=== PATIENT | female | born 1950 | race Hispanic/Latino ===

== ENCOUNTER 2017-02-02 12:52 | Inpatient (IN) | payer MEDICAID, SELFPAY ==
[2017-02-02 13:28] LABS: #Eosinphils 0.1 thou/uL (0.0-0.7); #Lymphocytes 1.8 thou/uL (1.20-3.40); #Monocytes 0.7 thou/uL (0.11-0.59); #Neutrophils 6.5 thou/uL (1.40-6.50); %Basophils 0.2 % (0.0-1.0); %Lymphocytes 19.8 % (21.0-51.0); %Monocytes 7.5 % (0.0-10.0); Hematocrit 29.4 % (36.0-47.0); Mean Platelet Volume 7.9 fL (7.4-10.4); Red Blood Cell (RBC) Count 3.29 mill/uL (4.20-5.40); White Blood Cell (WBC) Count 9.1 thou/uL (4.8-10.8)
[2017-02-02] MEDS ORDERED: Meropenem 1 GM VIAL ONE (13:33)
[2017-02-02] MEDS ORDERED: Sodium Chloride 0.9% 100 ML ONE (13:34)
[2017-02-02 13:56] LABS: ALT (SGPT) 9 U/L (8-55); AST (SGOT) 21 U/L (5-34); Alkaline Phosphatase 98 U/L (40-150); Anion Gap 14 mmol/L (10-20); BUN (Urea Nitrogen) 22 mg/dL (9.8-20.1); Bilirubin, Total 0.2 mg/dL (0.2-1.2); Calc. Creatinine Clearance 0 mL/min (70-130); Calcium 9.2 mg/dL (7.8-10.44); Carbon Dioxide 27 mmol/L (23-31); Chloride 99 mmol/L (98-107); Estimated GFR-MDRD 42; Globulin 5.1 g/dL (2.4-3.5); Protein, Total 8.6 g/dL (6.0-8.3)
[2017-02-02 13:59] LABS: Lactic Acid - Sepsis 1.7 mmol/L (0.5-2.2)
--- NOTE | 2017-02-02 14:18 | RAD ---
LEFT FOOT 3 VIEWS: Date: 02/02/17 HISTORY: Diabetic foot ulcer. FINDINGS: There is destructive lytic bony change involving the first metatarsal head and metatarsal neck regio n. There appears to be adjacent soft tissue ulcer. Changes are highly suspicious for osteomyelitis. IMPRESSION: Osteomyelitis of the first metatarsal. POS: ARCELIA
[2017-02-02] MEDS ORDERED: Acetaminophen 325 MG TAB PO PRN (15:19)
[2017-02-02] MEDS ORDERED: Dextrose 5% in Water 1,000 ML IV PRN (15:19)
[2017-02-02] MEDS ORDERED: Eucerin (Mineral Oil/Petrolatum,White) 30 gm Jar TOP PRN (15:19)
[2017-02-02] MEDS ORDERED: Loperamide HCl 2 MG CAP PO PRN (15:19)
[2017-02-02] MEDS ORDERED: Senokot 8.6 MG TAB PO PRN (15:19)
[2017-02-02] MEDS ORDERED: Zolpidem Tartrate 5 MG TAB PO PRN (15:19)
[2017-02-02] MEDS ORDERED: Artificial Tear Sol 15 ML BOT EA EYE PRN (15:19)
[2017-02-02] MEDS ORDERED: Dextrose 50% Abboject 50 ML SYRINGE SLOW IVP PRN (15:19)
[2017-02-02] MEDS ORDERED: Milk Of Magnesia 30 ML UDCUP PO PRN (15:19)
[2017-02-02] MEDS ORDERED: Sodium Chloride 0.65% Nasal 44 ML BOT EA NARE PRN (15:19)
[2017-02-02] MEDS ORDERED: Diabetic Tussin 200 MG/10 ML UDCUP PO PRN (15:19)
[2017-02-02] MEDS ORDERED: Loratadine 10 MG TAB PO PRN (15:19)
[2017-02-02] MEDS ORDERED: Ondansetron HCl/PF 4 MG/2 ML Vial IVP PRN (15:19)
[2017-02-02] MEDS ORDERED: HumaLOG 300 UNITS/3 ML VIAL SC PRN (15:19)
[2017-02-02] MEDS ORDERED: Ondansetron ODT 4 MG TAB PO PRN (15:19)
[2017-02-02] MEDS: Sodium Chloride 0.9% 1,000 ML IV SCH ×2 (15:20→20:21)
[2017-02-02 15:21] VITALS: BMI 23.9
--- NOTE | 2017-02-02 15:35 | HP ---
PRIMARY CARE PHYSICIAN: Latosha Andersen. REASON FOR ADMISSION: Hypotension, left foot diabetic infection. HISTORY OF PRESENT ILLNESS: A 66-year-old female with a history of diabetes, who was recen tly admitted in our hospital in 12/2016. At that time, Dr. Sales did an I\T\D for diabetic foot i nfection on the left side and subsequently patient was discharged home with outpatient wound care. Per family member, patient was relatively doing well. She had a couple of times followup visit at [facility]. For the last 1 week, the patient also noticed increasing erythema over left foot and swelling and pain. Today, patient had regular followup visit for diabetic foot at the primary care physician's office. The patient was feeling very dizzy, weak. Patient was hypotensive with bl ood pressure 73/51. She was afebrile. The patient also saw primary care physician yesterday at [facility] t time because of worsening of her left foot infection. Patient was given 2 gram of Rocephin IM and patient was given clindamycin 300 mg 3 capsules 3 times a day. The patient was taking that medicat ion, but she was not feeling any change in her left diabetic foot infection and that is why today sh e made regular followup visit with primary care physician. Over there, the patient's blood pressure was very low and that is why she was advised to go to the emergency room for evaluation. Patient denies any UTI symptoms. She denies any constipation, diarrhea. She denies taking blood pr essure medicine today. She denies any fever or chills. Patient does have pain in her left foot, wh ich is 3/10 in intensity, which is getting worse with walking. When she arrived to our emergency room, patient was no longer hypotensive and she was afebrile. The patient was found with left foot cellulitis. She had x-ray of the left foot, which showed osteomye litis of the first metatarsal. The patient was given IV antibiotic therapy with vancomycin and belinda penem and IV fluid. Subsequently, we decided to admit to the medical floor for IV antibiotic therap y and further care. PAST MEDICAL HISTORY: Diabetes type 2 diagnosed in 2004, hypertension, normocytic normochromic anem ia, dyslipidemia, history of diabetic right foot ulcer in 2011 required amputation of right second t oe. PAST SURGICAL HISTORY: Bilateral tubal ligation, right second toe amputation due to osteomyelitis i n 2012. Patient also required incision and debridement for left diabetic foot infection. PAST PSYCHIATRIC HISTORY: Reviewed and negative. FAMILY HISTORY: No strong family history of premature coronary artery disease, stroke or cancer. ALLERGIES: No known drug allergies. CURRENT HOME MEDICATIONS: Lovastatin 20 mg p.o. at bedtime, aspirin 81 mg p.o. daily, ferrous sulfa te 325 mg p.o. daily, NovoLog 70/30 25 units subQ twice daily, Coreg 3.125 mg p.o. b.i.d., clindamyc in 300 mg 3 times daily. REVIEW OF SYSTEMS: The following complete review of systems was negative, unless otherwise mentione d in the HPI or below: CONSTITUTIONAL: Weight loss or gain, ability to conduct usual activities. SKIN: Rash, itching. Eyes: Double vision, pain. ENT/MOUTH: Nose bleeding, neck stiffness, pain, tenderness. CARDIOVASCULAR: Palpitations, dyspnea on exertion, orthopnea. RESPIRATORY: Shortness of breath, wheezing, cough, hemoptysis, fever or night sweats. GASTROINTESTINAL: Poor appetite, abdominal pain, heartburn, nausea, vomiting, constipation, or diar tanisha. GENITOURINARY: Urgency, frequency, dysuria, nocturia. MUSCULOSKELETAL: Pain, swelling. NEUROLOGIC/PSYCHIATRIC: Anxiety, depression. ALLERGY/IMMUNOLOGIC: Skin rash, bleeding tendency. Please see my HPI for pertinent positives and negatives. All other review of systems reviewed and n egative except as mentioned in the HPI. SOCIAL HISTORY: Patient lives at home with the family. No history of tobacco, alcohol or illicit d rug abuse. EMERGENCY ROOM COURSE: Patient is given vancomycin, meropenem and IV fluid. PHYSICAL EXAMINATION: VITAL SIGNS: On arrival, blood pressure 114/73, pulse 100, respiratory rate 16, temperature 98.7, s aturation 100% on room air. Weight 66.2 kilograms. GENERAL: Patient is currently alert, awake, no obvious acute distress. HEENT: Normocephalic, atraumatic. Eyes: Pupils round, reactive to light. Extraocular muscles int act. ENT: Oropharynx within normal limits. Moist mucous membranes. No oral lesions. No pharyngeal natalia thema, no exudate. NECK: Supple. Range of motion is normal. No meningeal signs of irritation. LUNGS: Clear to auscultation without any rhonchi or rales. CARDIAC: S1, S2 regular without any murmur. ABDOMEN: Soft, bowel sounds present, nontender, nondistended. No organomegaly, no mass, no suprapu bic tenderness. BACK: Unremarkable, no CVA tenderness. EXTREMITIES: Upper extremity: Passive movement of all joints are normal. Lower extremity: Left f oot is swollen, erythematous with ulcer on the plantar aspect of the left foot. Patient has more sw elling over the medial aspect of the left foot. No calf tenderness. NEUROLOGIC: Nonfocal examination. The patient moves all 4 limbs. Plantar bilateral flexor. SKIN: No skin rash. HEMATOLOGIC: No lymphadenopathy. PSYCHIATRIC: Normal affect. SIGNIFICANT LABS: 1. CBC: WBC 9.1, hemoglobin 9.7, platelets 336. BMP: Sodium 136, potassium 4.2, chloride 99, car bon dioxide 27, BUN 22, creatinine 1.27, glucose 110, calcium 9.2, lactic acid 1.7. LFT: AST 21, ALT 9, alkaline phosphatase 98, albumin 3.5. CRP 4.46. 2. Foot x-ray showing osteomyelitis of the first metatarsal. ASSESSMENT AND PLAN/IMPRESSION: 1. Left first metatarsal osteomyelitis. This patient has swelling and erythema of the first toe of the left foot. Based on radiological picture, patient has underlying osteomyelitis. At this point , we will consult Dr. Nolasco. We will continue with broad spectrum antibiotic therapy with meropenem 1 gram IV q.8 hourly and vancomycin as per pharmacy adjusted dose. We will control her pain with N orco. This patient may need surgery and in that case, we will consult General Surgery for amputatio n. 2. Diabetes type 2. We will continue with insulin as per sliding scale protocol. Diabetic diet wi ll be given. We will continue with insulin 70/30, 10 units subQ a.c. and titrate insulin dose based on requirement. 3. Dyslipidemia. We will continue lovastatin 20 mg IV while in hospital. 4. Normocytic normochromic anemia. We will continue ferrous sulfate 325 mg p.o. daily. 5. Hypotension. We will hold on antihypertensive medication. The patient will be given IV fluid w hile in hospital. We will watch for any sepsis. 6. Deep venous thrombosis prophylaxis. Lovenox 40 mg subQ daily. 7. Gastrointestinal prophylaxis, Pepcid 20 mg p.o. b.i.d. 8. Code status: The patient is FULL CODE. Patient's granddaughter is surrogate decision maker. Disposition plan based on clinical course. We are expecting patient's stay in the hospital more beth n 2 midnights. Plan of care discussed with the patient and family member at bedside in the emergenc y room.
[2017-02-02] MEDS: Insulin NPH/Reg Insulin Hm 300 UNITS/3 ML VIAL SC SCH (18:03)
--- NOTE | 2017-02-02 19:42 | CON ---
DATE OF CONSULTATION: 02/02/2017 REASON FOR CONSULTATION: Left lower extremity arterial vascular evaluation. PERTINENT HISTORY: Patient is a 66-year-old female who underwent incision and drainage of a left great toe/metatarsal abscess by Dr. Jennifer Sales on 2016. Cultures grew several Enterococcus species. She was ultimately discharged with wound care and oral antibiotics. She returned today with marked edema, erythema, and pain involving the operative site. Vascular evaluation was subsequently requested. Examination revealed strongly palpable left femoral, popliteal, dorsalis pedis, and posterior tibial pulses. These pulse findings were mirrored on the right side. PAST MEDICAL HISTORY: 1. Diabetes. 2. Hypertension. 3. Dyslipidemia. 4. Diabetic peripheral neuropathy. PAST SURGICAL HISTORY: 1. BTL. 2. Laparoscopic cholecystectomy. 3. Amputation right second toe. 4. Hysterectomy. SOCIAL HISTORY: Nonsmoker. Nondrinker. ALLERGIES: None. FAMILY HISTORY: Noncontributory. REVIEW OF SYSTEMS: No history of kidney or liver disease, stroke, or claudication. LABORATORY AND X-RAY FINDINGS: Admission white blood cell count 9.1 with hemoglobin of 9.7. Platelet count 336,000. Creatinine 1.27. MEDICATIONS PRIOR TO ADMISSION: Coreg, Cleocin, and insulin 70/30. CURRENT MEDICATIONS: Include meropenem and vancomycin. PHYSICAL EXAMINATION: VITAL SIGNS: Height 5 feet 2 inches, weight 148 pounds, blood pressure 150/73, heart rate 94, temperature 98.8. GENERAL: Well-developed, well-nourished female, in no acute distress. Despite limited Moh[place] speaking, she appears fully oriented. HEENT: Significant for poor dentition. NECK: Without JVD or adenopathy. LUNGS: Clear with good inspiratory effort. HEART: Regular rate and rhythm without murmur or rub. ABDOMEN: Soft and nontender without palpable mass. EXTREMITIES: As described above. VASCULAR: As described above. Radial pulses are palpable. No carotid bruits were appreciated. Abdominal aorta is palpably nonenlarged. NEUROLOGIC: No focal deficits. IMPRESSION: Recurrent left great toe/metatarsal abscess. Left lower extremity arterial vascular status is well preserved. RECOMMENDATIONS: No further vascular workup is warranted. Suggest reconsultation with Dr. Jennifer Sales for management of the above-mentioned abscess. [facility]
[2017-02-02] MEDS: Meropenem 1 GM in Sodium Chloride 0.9% 100 ML IVPB SCH (20:22)
[2017-02-03 05:04] LABS: #Basophils 0.1 thou/uL (0.0-0.2); #Eosinphils 0.2 thou/uL (0.0-0.7); #Lymphocytes 1.6 thou/uL (1.20-3.40); #Monocytes 0.6 thou/uL (0.11-0.59); #Neutrophils 5.3 thou/uL (1.40-6.50); %Basophils 0.7 % (0.0-1.0); %Lymphocytes 20.7 % (21.0-51.0); %Monocytes 8.3 % (0.0-10.0); Hematocrit 27.7 % (36.0-47.0); Mean Platelet Volume 7.9 fL (7.4-10.4); Red Blood Cell (RBC) Count 3.07 mill/uL (4.20-5.40); White Blood Cell (WBC) Count 7.7 thou/uL (4.8-10.8)
[2017-02-03] MEDS: Meropenem 1 GM in Sodium Chloride 0.9% 100 ML IVPB SCH ×3 (05:20→21:47)
[2017-02-03] MEDS: Sodium Chloride 0.9% 1,000 ML IV SCH ×3 (05:20→20:10)
[2017-02-03 05:30] LABS: Anion Gap 11 mmol/L (10-20); BUN (Urea Nitrogen) 15 mg/dL (9.8-20.1); Calc. Creatinine Clearance 74 mL/min (70-130); Calcium 8.6 mg/dL (7.8-10.44); Carbon Dioxide 24 mmol/L (23-31); Chloride 106 mmol/L (98-107); Estimated GFR-MDRD 73
--- NOTE | 2017-02-03 07:50 | PDOC.PN ---
- Subjective Encounter Start Date: 02/03/17 Encounter Start Time: 07:40 -: old records requested/rev Patient seen and examined. No new complaints. No overnight events - Objective Resuscitation Status: Resuscitation Status FULL:Full Resuscitation MAR Reviewed: Yes Vital Signs & Weight: Vital Signs (12 hours) Temp Pulse Resp BP Pulse Ox 02/03/17 07:40 98.2 F 92 12 137/82 94 L 02/03/17 03:53 99.5 F 94 18 134/76 95 02/02/17 23:51 99.5 F 101 H 20 146/84 H 96 02/02/17 20:00 98.9 F 105 H 20 97 Weight Admit Weight 148 lb 4 oz Weight 148 lb 4 oz I&O: 02/02/17 02/03/17 02/04/17 06:59 06:59 06:59 Intake Total 1640 Balance 1640 Result Diagrams: 02/03/17 04:33 02/03/17 04:33 Additional Labs: Accuchecks 02/03/17 02/02/17 02/02/17 03:58 19:12 15:37 POC Glucose 120 H 213 H 97 Phys Exam - Physical Examination Constitutional: NAD HEENT: PERRLA, moist MMs, sclera anicteric Neck: no JVD, supple Respiratory: no wheezing, no rales, no rhonchi Cardiovascular: RRR, no significant murmur, no rub Gastrointestinal: soft, non-tender, no distention, positive bowel sounds Musculoskeletal: no edema, pulses present left great toe swollon and foot cellulitis on medial aspect Neurological: non-focal, normal sensation Psychiatric: normal affect, A&O x 3 Skin: no rash, normal turgor Dx/Plan (1) Acute osteomyelitis of metatarsal bone of left foot Code(s): M86.172 - OTHER ACUTE OSTEOMYELITIS, LEFT ANKLE AND FOOT Status: Acute (2) Diabetic foot infection Code(s): E11.69 - TYPE 2 DIABETES MELLITUS WITH OTHER SPECIFIED COMPLICATION; L08.9 - LOCAL INFECTION OF THE SKIN AND SUBCUTANEOUS TISSUE, UNSP Status: Acute (3) Hypotension Status: Acute (4) Sepsis Code(s): A41.9 - SEPSIS, UNSPECIFIED ORGANISM Status: Acute (5) Anemia, normocytic normochromic Code(s): D64.9 - ANEMIA, UNSPECIFIED Status: Chronic (6) Diabetes type 2, controlled Code(s): E11.9 - TYPE 2 DIABETES MELLITUS WITHOUT COMPLICATIONS Status: Chronic (7) Hypertension Code(s): I10 - ESSENTIAL (PRIMARY) HYPERTENSION Status: Chronic - Plan cont current plan of care, continue antibiotics * continue vancomycin and meropenam * dr zelaya will be consulted as pt may need great toe amputation * medication reviewed as below * symptomatic treatment * wound care * will adjust medication * pain controlled. Review of Systems - Review of Systems ENT: negative: Ear Pain, Ear Discharge, Nose Pain, Nose Discharge, Nose Congestion, Mouth Pain, Mouth Swelling, Throat Pain, Throat Swelling, Other Respiratory: negative: Cough, Dry, Shortness of Breath, Hemoptysis, SOB with Excertion, Pleuritic Pain, Sputum, Wheezing Cardiovascular: negative: Chest Pain, Palpitations, Orthopnea, Paroxysmal Noc. Dyspnea, Edema, Light Headedness, Other Gastrointestinal: negative: Nausea, Vomiting, Abdominal Pain, Diarrhea, Constipation, Melena, Hematochezia, Other Genitourinary: negative: Dysuria, Frequency, Incontinence, Hematuria, Retention , Other Musculoskeletal: Foot Pain. negative: Neck Pain, Shoulder Pain, Arm Pain, Back Pain, Hand Pain, Leg Pain, Other Skin: negative: Rash, Lesions, Davion, Bruising, Other - Medications/Allergies Allergies/Adverse Reactions: Allergies Allergy/AdvReac Type Severity Reaction Status Date / Time No Known Drug Allergies Allergy Verified 12/24/15 21:01 Medications: Current Medications Acetaminophen (Tylenol) 650 mg PO Q4H PRN PRN Reason: Headache/Fever or Pain Hydrocodone Bitart/Acetaminophen ([place] 5/325) 1 tab PO Q4H PRN PRN Reason: Moderate Pain (4-6) Artificial Tears (Tears Renewed 15ml Bottle) 0 drop EA EYE PRN PRN PRN Reason: Dry Eyes Dextrose/Water (Dextrose 50%) 25 gm SLOW IVP PRN PRN PRN Reason: Hypoglycemia Enoxaparin Sodium (Lovenox) 40 mg SC 0900 NATALYA Famotidine (Pepcid) 20 mg PO DAILY NATALYA Glucagon (Glucagon) 1 mg IM PRN PRN PRN Reason: Hypoglycemia Guaifenesin (Robitussin Sf) 200 mg PO Q4H PRN PRN Reason: Cough Hydralazine HCl (Apresoline) 10 mg SLOW IVP Q4H PRN PRN Reason: Systolic BP > 180 Dextrose/Water (D5w) 1,000 mls @ 0 mls/hr IV .Q0M PRN; As Directed PRN Reason: Hypoglycemia Meropenem 1 gm/ Sodium (Chloride) 100 mls @ 200 mls/hr IVPB Q8HR [facility] Last Admin: 02/03/17 05:20 Dose: 100 mls Sodium Chloride (Normal Saline 0.9%) 1,000 mls @ 100 mls/hr IV .Q10H [facility] Last Admin: 02/03/17 05:20 Dose: 1,000 mls Vancomycin HCl 1 gm/ Device 200 mls @ 200 mls/hr IVPB Q24HR@1500 NATALYA Insulin Human Isoph/Insulin Regular (Humulin 70/30) 10 units SC [facility] Last Admin: 02/02/17 18:03 Dose: 10 unit Insulin Human Lispro (Humalog) 0 units SC .MODERATE SLIDING SC PRN PRN Reason: Moderate Correctional Scale Insulin Human Lispro (Humalog) 0 units SC .BEDTIME SLIDING SC PRN PRN Reason: Bedtime Correctional Scale Loperamide HCl (Imodium) 2 mg PO PRN PRN PRN Reason: Diarrhea/Loose Stools Loratadine (Claritin) 10 mg PO DAILYPRN PRN PRN Reason: Sinus Symptoms Magnesium Hydroxide (Milk Of Magnesium) 30 ml PO DAILYPRN PRN PRN Reason: Constipation Mineral Oil/White Petrolatum (Eucerin Cream) 0 gm TOP BIDPRN PRN PRN Reason: Dry Skin Miscellaneous Medication (Pharmacy To Dose) 1 each IVPB PRN PRN PRN Reason: Pharmacy to dose Ondansetron HCl (Zofran Odt) 4 mg PO Q6H PRN PRN Reason: Nausea/Vomiting Ondansetron HCl (Zofran) 4 mg IVP Q6H PRN PRN Reason: Nausea/Vomiting Saccharomyces Boulardii (Florastor) 250 mg PO DAILY [facility] Senna (Senokot) 2 tab PO HSPRN PRN PRN Reason: Constipation Sodium Chloride ([place] Nasal [place] 0.65%) 0 ml EA NARE QIDPRN PRN PRN Reason: Nasal Congestion Zolpidem Tartrate (Ambien) 5 mg PO HSPRN PRN PRN Reason: Insomnia
[2017-02-03] MEDS: Famotidine 20 MG TAB PO SCH (08:20)
[2017-02-03] MEDS: Enoxaparin Sodium 40 MG/0.4 ML SYRINGE SC SCH (08:21)
[2017-02-03] MEDS: Saccharomyces boulardii 250 MG CAP PO SCH (08:21)
[2017-02-03] MEDS: Insulin NPH/Reg Insulin Hm 300 UNITS/3 ML VIAL SC SCH ×3 (08:31→17:01)
[2017-02-03] MEDS: Vancomycin HCl 1 GM in Premix Bag 1 BAG IVPB SCH ×2 (10:23→22:42)
[2017-02-03] MEDS ORDERED: Vancomycin HCl 1 GM in Premix Bag 1 BAG IVPB SCH (15:00)
[2017-02-04] MEDS: Meropenem 1 GM in Sodium Chloride 0.9% 100 ML IVPB SCH ×3 (05:33→20:42)
[2017-02-04] MEDS: HumaLOG 300 UNITS/3 ML VIAL SC PRN (05:39)
[2017-02-04] MEDS: Sodium Chloride 0.9% 1,000 ML IV SCH ×3 (08:09→20:47)
[2017-02-04] MEDS: Enoxaparin Sodium 40 MG/0.4 ML SYRINGE SC SCH (08:09)
[2017-02-04] MEDS: Insulin NPH/Reg Insulin Hm 300 UNITS/3 ML VIAL SC SCH ×3 (08:09→16:30)
[2017-02-04] MEDS: Famotidine 20 MG TAB PO SCH (08:09)
[2017-02-04] MEDS: Saccharomyces boulardii 250 MG CAP PO SCH (08:09)
[2017-02-04 09:26] LABS: Vancomycin, Trough 15.1 ug/mL
[2017-02-04] MEDS: Vancomycin HCl 1 GM in Premix Bag 1 BAG IVPB SCH ×2 (11:15→20:43)
--- NOTE | 2017-02-04 13:48 | CON ---
DATE OF CONSULTATION: 02/04/2017 REASON FOR CONSULTATION: Left foot inflammatory process. HISTORY OF PRESENT ILLNESS: A 66-year-old who has a history of type 2 diabetes mellitus and was rec ently admitted because of an abscess in the left first MPJ area as noted by the MRI scan completed t nichol. The interpretation demonstrated patchy marrow signal alteration with enhancement of the first metatarsal consistent with osteomyelitis and also abnormal edema and enhancement of the medial soft tissues and multifocal areas of peripheral enhancement. The patient underwent surgical debridement. Cultures are identified Enterococcus faecalis and Enterococcus gallinarum susceptible to various a ntimicrobials. Final anaerobic cultures were negative. The patient was discharged on 10 days of or al Augmentin, but she noticed recrudescence of inflammatory process subsequently. She is back in [facility] for [facility]evaluation and management. Denies headaches, no change in visual symptoms, sore th roat, odynophagia, dysphagia, no cough or sputum production or chest pain, no abdominal pain or diar tanisha, no genitourinary symptoms, no other joint symptoms. No neurological symptoms. PAST MEDICAL HISTORY: Type 2 diabetes mellitus, right second toe amputation secondary to osteomyeli tis in 2012, and left first MPJ osteomyelitis with abscess formation status post limited debridement in 12/2016. ALLERGIES: None. MEDICATIONS: Lovastatin, aspirin, NovoLog insulin, Coreg, clindamycin. Currently she is receiving meropenem and vancomycin. FAMILY HISTORY: Noncontributory. PHYSICAL EXAMINATION: VITAL SIGNS: Essentially normal, T-max 99, blood pressure 140/78, pulse 92, respirations 16, and O2 sat 97%. SKIN: Shows the ulceration at the medial aspect of the left first MPJ skin site. There is surround ing erythema and swelling. Little bit of bluish discoloration in the more distal aspect of the area . No other skin changes. Of note, no lymphadenopathy. HEENT: Noncontributory. NECK: Supple. LUNGS: With symmetric clear breath sounds. HEART: S1, S2, regular rate. No S3 or S4. ABDOMEN: Soft, not distended or tender. No ascites. No bladder distention. EXTREMITIES: Pulses are 2+ in popliteals and 2+ in dorsalis pedis. Capillary refill is normal. Mo ves all extremities equally. NEUROLOGIC: Cognitive function appears to be intact. LABORATORY DATA AND IMAGING: Sodium 137, creatinine 0.79. White cell count 7.7, hemoglobin 9, plat elets 294, 68% neutrophils, 20% lymphocytes. Creatinine 0.79. Liver profile normal. CRP 4.46, alb umin 3.5. Vancomycin trough 15. Two sets of blood cultures thus far negative. Foot x-ray from adm ission at this time with evidence of destructive and lytic bony changes in the first metatarsal head and metatarsal neck region. ASSESSMENT AND PLAN: 1. Diabetes type 2. 2. Osteomyelitis, first toe and metatarsal, diagnosed in December. For some reason, patient was disc harged only on 10 days of oral Augmentin and evidently has had recrudescence of inflammatory process , now she has more obvious destructive changes. Ideally, one would like to avoid complete amputatio n and see if more limited debridement procedure with protracted antimicrobial therapy would be an op tion. Evidently, first ray amputation would be a definitive solution to this problem. With then du ration of antimicrobial therapy to be determined by the clearance of margin. A more limited procedu re for simple debridement of the involved areas of soft bone within application of wound VAC and the n protracted antimicrobial therapy would be an option as well.
--- NOTE | 2017-02-04 14:23 | PDOC.PN ---
- Subjective Encounter Start Date: 02/04/17 Encounter Start Time: 10:00 Patient seen and examined. No new complaints. No overnight events - Objective Resuscitation Status: Resuscitation Status FULL:Full Resuscitation MAR Reviewed: Yes Vital Signs & Weight: Vital Signs (12 hours) Temp Pulse Resp BP Pulse Ox 02/04/17 11:21 98.5 F 92 16 147/78 H 97 02/04/17 08:00 99.0 F 98 16 97 02/04/17 07:43 99.0 F 98 16 160/85 H 97 Weight Admit Weight 148 lb 4 oz Weight 148 lb 4 oz I&O: 02/03/17 02/04/17 02/05/17 06:59 06:59 06:59 Intake Total 1640 1680 Balance 1640 1680 Result Diagrams: 02/03/17 04:33 02/03/17 04:33 Additional Labs: Accuchecks 02/04/17 02/04/17 02/03/17 10:48 05:25 19:30 POC Glucose 204 H 161 H 113 H 02/03/17 15:57 POC Glucose 133 H Phys Exam - Physical Examination Constitutional: NAD HEENT: PERRLA, moist MMs, sclera anicteric Neck: no JVD, supple Respiratory: no wheezing, no rales, no rhonchi Cardiovascular: RRR, no significant murmur, no rub Gastrointestinal: soft, non-tender, no distention, positive bowel sounds Musculoskeletal: no edema, pulses present left great toe and surrounding cellulitis Neurological: non-focal, normal sensation, moves all 4 limbs Psychiatric: normal affect, A&O x 3 Skin: no rash, normal turgor Dx/Plan (1) Acute osteomyelitis of metatarsal bone of left foot Code(s): M86.172 - OTHER ACUTE OSTEOMYELITIS, LEFT ANKLE AND FOOT Status: Acute (2) Diabetic foot infection Code(s): E11.69 - TYPE 2 DIABETES MELLITUS WITH OTHER SPECIFIED COMPLICATION; L08.9 - LOCAL INFECTION OF THE SKIN AND SUBCUTANEOUS TISSUE, UNSP Status: Acute (3) Hypotension Status: Acute (4) Sepsis Code(s): A41.9 - SEPSIS, UNSPECIFIED ORGANISM Status: Acute (5) Anemia, normocytic normochromic Code(s): D64.9 - ANEMIA, UNSPECIFIED Status: Chronic (6) Diabetes type 2, controlled Code(s): E11.9 - TYPE 2 DIABETES MELLITUS WITHOUT COMPLICATIONS Status: Chronic (7) Hypertension Code(s): I10 - ESSENTIAL (PRIMARY) HYPERTENSION Status: Chronic - Plan cont current plan of care, continue antibiotics * continue iv antibiotics today * tomorrow will ask surgeon to decide about left great toe amputation * medication reviewed as below * symptomatic treatment. Review of Systems - Review of Systems ENT: negative: Ear Pain, Ear Discharge, Nose Pain, Nose Discharge, Nose Congestion, Mouth Pain, Mouth Swelling, Throat Pain, Throat Swelling, Other Respiratory: negative: Cough, Dry, Shortness of Breath, Hemoptysis, SOB with Excertion, Pleuritic Pain, Sputum, Wheezing Cardiovascular: negative: Chest Pain, Palpitations, Orthopnea, Paroxysmal Noc. Dyspnea, Edema, Light Headedness, Other Gastrointestinal: negative: Nausea, Vomiting, Abdominal Pain, Diarrhea, Constipation, Melena, Hematochezia, Other Genitourinary: negative: Dysuria, Frequency, Incontinence, Hematuria, Retention , Other Musculoskeletal: negative: Neck Pain, Shoulder Pain, Arm Pain, Back Pain, Hand Pain, Leg Pain, Foot Pain, Other - Medications/Allergies Allergies/Adverse Reactions: Allergies Allergy/AdvReac Type Severity Reaction Status Date / Time No Known Drug Allergies Allergy Verified 12/24/15 21:01 Medications: Current Medications Acetaminophen (Tylenol) 650 mg PO Q4H PRN PRN Reason: Headache/Fever or Pain Hydrocodone Bitart/Acetaminophen ([place] 5/325) 1 tab PO Q4H PRN PRN Reason: Moderate Pain (4-6) Artificial Tears (Tears Renewed 15ml Bottle) 0 drop EA EYE PRN PRN PRN Reason: Dry Eyes Dextrose/Water (Dextrose 50%) 25 gm SLOW IVP PRN PRN PRN Reason: Hypoglycemia Enoxaparin Sodium (Lovenox) 40 mg SC 0900 [facility] Last Admin: 02/04/17 08:09 Dose: 40 mg Famotidine (Pepcid) 20 mg PO DAILY [facility] Last Admin: 02/04/17 08:09 Dose: 20 mg Glucagon (Glucagon) 1 mg IM PRN PRN PRN Reason: Hypoglycemia Guaifenesin (Robitussin Sf) 200 mg PO Q4H PRN PRN Reason: Cough Last Admin: 02/03/17 21:49 Dose: 200 mg Hydralazine HCl (Apresoline) 10 mg SLOW IVP Q4H PRN PRN Reason: Systolic BP > 180 Dextrose/Water (D5w) 1,000 mls @ 0 mls/hr IV .Q0M PRN; As Directed PRN Reason: Hypoglycemia Meropenem 1 gm/ Sodium (Chloride) 100 mls @ 200 mls/hr IVPB Q8HR [facility] Last Admin: 02/04/17 13:52 Dose: 100 mls Sodium Chloride (Normal Saline 0.9%) 1,000 mls @ 100 mls/hr IV .Q10H [facility] Last Admin: 02/04/17 08:09 Dose: 1,000 mls Vancomycin HCl 1 gm/ Device 200 mls @ 200 mls/hr IVPB 1000,2200 [facility] Last Admin: 02/04/17 11:15 Dose: 200 mls Insulin Human Isoph/Insulin Regular (Humulin 70/30) 10 units SC AC [facility] Last Admin: 02/04/17 11:16 Dose: 10 unit Insulin Human Lispro (Humalog) 0 units SC .MODERATE SLIDING SC PRN PRN Reason: Moderate Correctional Scale Last Admin: 02/04/17 05:39 Dose: 2 unit Insulin Human Lispro (Humalog) 0 units SC .BEDTIME SLIDING SC PRN PRN Reason: Bedtime Correctional Scale Loperamide HCl (Imodium) 2 mg PO PRN PRN PRN Reason: Diarrhea/Loose Stools Loratadine (Claritin) 10 mg PO DAILYPRN PRN PRN Reason: Sinus Symptoms Magnesium Hydroxide (Milk Of Magnesium) 30 ml PO DAILYPRN PRN PRN Reason: Constipation Mineral Oil/White Petrolatum (Eucerin Cream) 0 gm TOP BIDPRN PRN PRN Reason: Dry Skin Miscellaneous Medication (Pharmacy To Dose) 1 each IVPB PRN PRN PRN Reason: Pharmacy to dose Ondansetron HCl (Zofran Odt) 4 mg PO Q6H PRN PRN Reason: Nausea/Vomiting Ondansetron HCl (Zofran) 4 mg IVP Q6H PRN PRN Reason: Nausea/Vomiting Saccharomyces Boulardii (Florastor) 250 mg PO DAILY [facility] Last Admin: 02/04/17 08:09 Dose: 250 mg Senna (Senokot) 2 tab PO HSPRN PRN PRN Reason: Constipation Sodium Chloride ([place] Nasal [place] 0.65%) 0 ml EA NARE QIDPRN PRN PRN Reason: Nasal Congestion Last Admin: 02/03/17 22:45 Dose: 1 spr Zolpidem Tartrate (Ambien) 5 mg PO HSPRN PRN PRN Reason: Insomnia
[2017-02-04] MEDS ORDERED: FLU VACC TS2017-18 (>65YR) 0.5 ML SYRINGE IM ONE (17:00)
[2017-02-05] MEDS: Sodium Chloride 0.9% 1,000 ML IV SCH ×3 (03:28→23:30)
[2017-02-05] MEDS: Meropenem 1 GM in Sodium Chloride 0.9% 100 ML IVPB SCH ×4 (05:10→22:26)
[2017-02-05] MEDS: Saccharomyces boulardii 250 MG CAP PO SCH (08:40)
[2017-02-05] MEDS: Famotidine 20 MG TAB PO SCH (08:40)
[2017-02-05] MEDS: Insulin NPH/Reg Insulin Hm 300 UNITS/3 ML VIAL SC SCH ×4 (08:49→17:41)
[2017-02-05] MEDS: Enoxaparin Sodium 40 MG/0.4 ML SYRINGE SC SCH (09:02)
[2017-02-05] MEDS: Vancomycin HCl 1 GM in Premix Bag 1 BAG IVPB SCH ×2 (09:02→23:30)
--- NOTE | 2017-02-05 11:36 | PDOC.PN ---
- Subjective Encounter Start Date: 02/05/17 Encounter Start Time: 07:50 Patient seen and examined. No new complaints. No overnight events - Objective Resuscitation Status: Resuscitation Status FULL:Full Resuscitation MAR Reviewed: Yes Vital Signs & Weight: Vital Signs (12 hours) Temp Pulse Resp BP Pulse Ox 02/05/17 08:00 99 F 94 16 123/71 94 L 02/05/17 04:00 99.1 F 97 18 133/82 93 L 02/05/17 00:00 98.9 F 93 18 143/82 H 98 Weight Admit Weight 148 lb 4 oz Weight 148 lb 4 oz I&O: 02/04/17 02/05/17 02/06/17 06:59 06:59 06:59 Intake Total 1680 3270 Balance 1680 3270 Result Diagrams: 02/03/17 04:33 02/03/17 04:33 Additional Labs: Accuchecks 02/05/17 02/04/17 02/04/17 04:16 19:41 16:09 POC Glucose 159 H 119 H 116 H Phys Exam - Physical Examination Constitutional: NAD HEENT: PERRLA, moist MMs, sclera anicteric Neck: no JVD, supple Respiratory: no wheezing, no rales, no rhonchi Cardiovascular: RRR, no significant murmur, no rub Gastrointestinal: soft, non-tender, no distention, positive bowel sounds Musculoskeletal: no edema, pulses present left great toe with dressing Neurological: non-focal, normal sensation Psychiatric: normal affect, A&O x 3 Skin: no rash, normal turgor Dx/Plan (1) Acute osteomyelitis of metatarsal bone of left foot Code(s): M86.172 - OTHER ACUTE OSTEOMYELITIS, LEFT ANKLE AND FOOT Status: Acute (2) Diabetic foot infection Code(s): E11.69 - TYPE 2 DIABETES MELLITUS WITH OTHER SPECIFIED COMPLICATION; L08.9 - LOCAL INFECTION OF THE SKIN AND SUBCUTANEOUS TISSUE, UNSP Status: Acute (3) Hypotension Status: Acute (4) Sepsis Code(s): A41.9 - SEPSIS, UNSPECIFIED ORGANISM Status: Acute (5) Anemia, normocytic normochromic Code(s): D64.9 - ANEMIA, UNSPECIFIED Status: Chronic (6) Diabetes type 2, controlled Code(s): E11.9 - TYPE 2 DIABETES MELLITUS WITHOUT COMPLICATIONS Status: Chronic (7) Hypertension Code(s): I10 - ESSENTIAL (PRIMARY) HYPERTENSION Status: Chronic - Plan cont current plan of care, continue antibiotics * continue wound care * continue meropenam and vancomycin * today plan for surgery * because of lack of funding, pt may be not able to get benefit of iv antibiotics on discharge * medication reviewed as below * symptomatic treatment.. Review of Systems - Review of Systems ENT: negative: Ear Pain, Ear Discharge, Nose Pain, Nose Discharge, Nose Congestion, Mouth Pain, Mouth Swelling, Throat Pain, Throat Swelling, Other Respiratory: negative: Cough, Dry, Shortness of Breath, Hemoptysis, SOB with Excertion, Pleuritic Pain, Sputum, Wheezing Cardiovascular: negative: Chest Pain, Palpitations, Orthopnea, Paroxysmal Noc. Dyspnea, Edema, Light Headedness, Other Gastrointestinal: negative: Nausea, Vomiting, Abdominal Pain, Diarrhea, Constipation, Melena, Hematochezia, Other Genitourinary: negative: Dysuria, Frequency, Incontinence, Hematuria, Retention , Other Musculoskeletal: negative: Neck Pain, Shoulder Pain, Arm Pain, Back Pain, Hand Pain, Leg Pain, Foot Pain, Other - Medications/Allergies Allergies/Adverse Reactions: Allergies Allergy/AdvReac Type Severity Reaction Status Date / Time No Known Drug Allergies Allergy Verified 12/24/15 21:01 Medications: Current Medications Acetaminophen (Tylenol) 650 mg PO Q4H PRN PRN Reason: Headache/Fever or Pain Hydrocodone Bitart/Acetaminophen ([place] 5/325) 1 tab PO Q4H PRN PRN Reason: Moderate Pain (4-6) Artificial Tears (Tears Renewed 15ml Bottle) 0 drop EA EYE PRN PRN PRN Reason: Dry Eyes Dextrose/Water (Dextrose 50%) 25 gm SLOW IVP PRN PRN PRN Reason: Hypoglycemia Enoxaparin Sodium (Lovenox) 40 mg SC 0900 [facility] Last Admin: 02/05/17 09:02 Dose: Not Given Famotidine (Pepcid) 20 mg PO DAILY [facility] Last Admin: 02/05/17 08:40 Dose: 20 mg Glucagon (Glucagon) 1 mg IM PRN PRN PRN Reason: Hypoglycemia Guaifenesin (Robitussin Sf) 200 mg PO Q4H PRN PRN Reason: Cough Last Admin: 02/03/17 21:49 Dose: 200 mg Hydralazine HCl (Apresoline) 10 mg SLOW IVP Q4H PRN PRN Reason: Systolic BP > 180 Dextrose/Water (D5w) 1,000 mls @ 0 mls/hr IV .Q0M PRN; As Directed PRN Reason: Hypoglycemia Meropenem 1 gm/ Sodium (Chloride) 100 mls @ 200 mls/hr IVPB Q8HR [facility] Last Admin: 02/05/17 05:10 Dose: 100 mls Sodium Chloride (Normal Saline 0.9%) 1,000 mls @ 100 mls/hr IV .Q10H [facility] Last Admin: 02/05/17 08:40 Dose: 1,000 mls Vancomycin HCl 1 gm/ Device 200 mls @ 200 mls/hr IVPB 1000,2200 [facility] Last Admin: 02/05/17 09:02 Dose: 200 mls Insulin Human Isoph/Insulin Regular (Humulin 70/30) 10 units SC AC [facility] Last Admin: 02/05/17 11:19 Dose: Not Given Insulin Human Lispro (Humalog) 0 units SC .MODERATE SLIDING SC PRN PRN Reason: Moderate Correctional Scale Last Admin: 02/04/17 05:39 Dose: 2 unit Insulin Human Lispro (Humalog) 0 units SC .BEDTIME SLIDING SC PRN PRN Reason: Bedtime Correctional Scale Loperamide HCl (Imodium) 2 mg PO PRN PRN PRN Reason: Diarrhea/Loose Stools Loratadine (Claritin) 10 mg PO DAILYPRN PRN PRN Reason: Sinus Symptoms Magnesium Hydroxide (Milk Of Magnesium) 30 ml PO DAILYPRN PRN PRN Reason: Constipation Mineral Oil/White Petrolatum (Eucerin Cream) 0 gm TOP BIDPRN PRN PRN Reason: Dry Skin Miscellaneous Medication (Pharmacy To Dose) 1 each IVPB PRN PRN PRN Reason: Pharmacy to dose Ondansetron HCl (Zofran Odt) 4 mg PO Q6H PRN PRN Reason: Nausea/Vomiting Ondansetron HCl (Zofran) 4 mg IVP Q6H PRN PRN Reason: Nausea/Vomiting Saccharomyces Boulardii (Florastor) 250 mg PO DAILY [facility] Last Admin: 02/05/17 08:40 Dose: 250 mg Senna (Senokot) 2 tab PO HSPRN PRN PRN Reason: Constipation Sodium Chloride ([place] Nasal [place] 0.65%) 0 ml EA NARE QIDPRN PRN PRN Reason: Nasal Congestion Last Admin: 02/03/17 22:45 Dose: 1 spr Zolpidem Tartrate (Ambien) 5 mg PO HSPRN PRN PRN Reason: Insomnia
[2017-02-05] MEDS ORDERED: Fentanyl 100 MCG/2 ML VIAL ONE (12:30)
[2017-02-05] MEDS ORDERED: Bacitracin Zinc Ointment 30 gm TUBE ONE (12:31)
[2017-02-05] MEDS ORDERED: Bupivacaine/Epinephrine 0.5% 10 ML VIAL ONE ×2 (12:31)
[2017-02-05] MEDS ORDERED: Dexamethasone 20 MG/5 ML VIAL ONE (13:25)
[2017-02-05] MEDS ORDERED: ePHEDrine/0.9% NaCl/PF SYRINGE 50 mg/10 ml ONE (13:25)
[2017-02-05] MEDS ORDERED: Ondansetron HCl/PF 4 MG/2 ML Vial ONE (13:25)
[2017-02-05] MEDS ORDERED: Propofol 200 MG/20 ML VIAL ONE (13:25)
[2017-02-05] MEDS ORDERED: Lidocaine 1% PF 5 ML VIAL ONE (13:25)
--- NOTE | 2017-02-05 16:05 | PDOC.OP ---
Operative Note - Operative Note Operative Note: PROCEDURE: Left great toe transmetatarsal amputation DATE OF PROCEDURE: 02/05/2017 SURGEON: Sara Sales M.D. PREOPERATIVE DIAGNOSES: Left great toe metatarsal head osteomyelitis POSTOPERATIVE DIAGNOSIS: Left great toe metatarsal head osteomyelitis and chronic abscess HISTORY: Patient is a 66-year-old woman with osteomyelitis and multiple abscesses at the metatarsal head of the left great toe by MRI back in December. At that time she refused amputation although this was recommended. Her abscesses were debrided and her wound was packed and she was started on long- term antibiotics but the swelling and pain in her foot has not improved and by plain film the osteomyelitis of her metatarsal head has worsened. Again the recommendation was made to proceed with amputation at this time she decided to proceed PROCEDURE IN DETAIL: After informed consent was obtained and appropriate preoperative antibiotics were continued the patient was taken to the operating where she was was placed in supine position and general anesthesia was administered. She was prepped and draped in standard sterile fashion and a paddle-shaped incision made over the left great toe including the open wound on the lateral foot. Dissection was carried down through the skin and soft tissues and a chronic abscess cavity with chronic-appearing granulation tissue encountered near the metatarsal head, which was spongy and eroded. Cultures were taken. The toe was amputated through the metatarsophalangeal joint and the specimen passed from the table. The metatarsal head was then dissected free circumferentially including the abscessed infected tissue and rib graeme were used to transect the metatarsal bone at the midshaft level. This was passed from the table as well. The metatarsal bone was then rongeured down to healthy appearing normal bone. Bone chips were sent from this level for bone culture. All granulation tissue was then trimmed back to normal-appearing tissue and hemostasis obtained using Bovie electrocautery. The wound was irrigated and hemostasis verified. The skin edges were reapproximated proximally and distally to reduce the size of the open wound and a VAC dressing was placed. The patient was extubated and taken to the recovery room in good condition. Estimated blood loss was minimal. There were no complications. Specimen is left great toe and metatarsal head with tissue cultures from a chronic abscess cavity and bone cultures from the proximal metatarsal.
--- NOTE | 2017-02-05 17:38 | CON ---
DATE OF CONSULTATION: 02/05/2017 REASON FOR CONSULTATION: Left great toe osteomyelitis. HISTORY OF PRESENT ILLNESS: Ms. Joseph is a 66-year-old diabetic woman who is known to me from a pr evious admission. When I saw her in late December, she had evidence of osteomyelitis in her left grea t toe and I recommended transmetatarsal amputation, but she refused at that time. We did debride e abscess overlying her metatarsal head, but the bone was exposed and I felt that this was inadequat e treatment. The patient was discharged home with wound care and antibiotics, but re-presented to [facility] this weekend with hypotension and suspicion of sepsis. She was admitted and placed on b road-spectrum antibiotics. She has been receiving wound care from the wound care team. She denies much drainage from her foot. The open wound is healing, but her foot remains swollen and painful. She has pain off and on, although she was not having any pain at the time that I saw her. She denie d any fevers or chills at home and states that she had been taking her antibiotics as prescribed and had a few days left at the time that she returned to the hospital. PAST MEDICAL HISTORY: Diabetes, hypertension, hyperlipidemia. OUTPATIENT MEDICATIONS: Include carvedilol, clindamycin, NPH insulin, Florastor and she apparently also got some IV antibiotics at her primary care doctor's office not too long before her admission. INPATIENT MEDICATIONS: Include sliding scale insulin, Lovenox, Pepcid, 70/30 insulin, meropenem, Fl orastor, vancomycin, and multiple p.r.n. PAST SURGICAL HISTORY: Right second toe amputation for diabetic foot infection, tubal ligation, cho lecystectomy, hysterectomy, and an incision and drainage of left first metatarsal head abscess. ALLERGIES: She has no known drug allergies. REVIEW OF SYSTEMS: Ten system review of systems is negative except per HPI. Patient does not have any other symptoms of URI or upper respiratory infection and denied any shortness of breath or chest pain related to her hypotensive episode. PHYSICAL EXAMINATION: VITAL SIGNS: Patient has been afebrile since her admission. Heart rate in the 90s, respirations 16 , 93-98% saturated on room air, blood pressure has been in the normal to slightly elevated range. HEENT: Unremarkable. NECK: Supple without lymphadenopathy or thyroid nodules. HEART: Regular in its rate and rhythm without murmurs, rubs or gallops. LUNGS: Clear to auscultation bilaterally. ABDOMEN: Soft, nontender, nondistended, no palpable masses or hernias. EXTREMITIES: Warm and well perfused with excellent dorsalis pedis pulses bilaterally. Her left met atarsal head is markedly swollen, but not fluctuant. The open wound appears to be healing and does not probe to deep tissues. NEUROLOGIC: Diminished light touch sensation on both extremities. PSYCHIATRIC: Alert, oriented, and appropriate through traveling construction superintendent services. LABORATORY DATA: White count is normal at 7.7, although her neutrophils are high normal. Platelets are normal at 294, but hematocrit is low at 27.7. Electrolytes were unremarkable and they were las t checked on the . Her blood sugars have ranged from 116-230. UA was clear except for some tra ce blood and blood cultures are no growth to date. X-RAYS: Plain films of the left foot are examined and I agree with the radiologist if there is evid ence of osteomyelitis with erosion of the metatarsal head. ASSESSMENT: Hypotension and suspected sepsis due to ongoing smoldering osteomyelitis. Her open wou nd has healed, but the infection of the bone has not responded to outpatient antibiotics nor did I t hink that it would. The patient has reconsidered her stance of refusing amputation and is now ready to proceed since she has failed medical management. I recommended going today to the operating misti m for a left great toe transmetatarsal amputation and she is agreeable to this plan. PLAN: She understands that the wound will need to be packed open to heal by secondary intent due to the infection and that she will require ongoing antibiotics. The inherent risks of the procedure w ere discussed with her. These include but are not limited to bleeding, infection, risks of anesthes ia, need for further procedures including amputation at a higher level and wound healing problems. She has been posted for the operating room and all of her questions were answered.
[2017-02-06] MEDS: Sodium Chloride 0.9% 1,000 ML IV SCH ×5 (05:15→21:52)
[2017-02-06] MEDS: Meropenem 1 GM in Sodium Chloride 0.9% 100 ML IVPB SCH ×3 (05:16→21:51)
[2017-02-06] MEDS: HumaLOG 300 UNITS/3 ML VIAL SC PRN (06:45)
[2017-02-06] MEDS: Saccharomyces boulardii 250 MG CAP PO SCH (08:32)
[2017-02-06] MEDS: Famotidine 20 MG TAB PO SCH (08:32)
[2017-02-06] MEDS: Enoxaparin Sodium 40 MG/0.4 ML SYRINGE SC SCH (08:32)
[2017-02-06] MEDS: Insulin NPH/Reg Insulin Hm 300 UNITS/3 ML VIAL SC SCH ×3 (08:33→15:59)
[2017-02-06 09:11] LABS: Vancomycin, Trough 24.5 ug/mL
[2017-02-06] MEDS: Vancomycin HCl 750 MG in Sodium Chloride 0.9% 250 ML 250 ML IVPB SCH ×2 (09:48→23:16)
--- NOTE | 2017-02-06 09:54 | PDOC.PN ---
- Subjective Encounter Start Date: 02/06/17 Encounter Start Time: 08:00 Patient seen and examined. No new complaints. No overnight events - Objective Resuscitation Status: Resuscitation Status FULL:Full Resuscitation MAR Reviewed: Yes Vital Signs & Weight: Vital Signs (12 hours) Temp Pulse Resp BP BP Pulse Ox 02/06/17 07:09 97.0 F L 90 16 164/83 H 100 02/06/17 04:00 97.7 F 72 16 110/63 97 02/06/17 00:40 113/68 96 02/06/17 00:00 97.6 F 79 16 98/59 L 97 Weight Admit Weight 148 lb 4 oz Weight 148 lb 4 oz I&O: 02/05/17 02/06/17 02/07/17 06:59 06:59 06:59 Intake Total 3270 900 Balance 3270 900 Result Diagrams: 02/03/17 04:33 02/03/17 04:33 Additional Labs: Accuchecks 02/06/17 02/05/17 02/05/17 04:25 23:25 16:31 POC Glucose 238 H 257 H 219 H 02/05/17 11:33 POC Glucose 230 H Phys Exam - Physical Examination Constitutional: NAD HEENT: PERRLA, moist MMs, sclera anicteric Neck: no JVD, supple Respiratory: no wheezing, no rales, no rhonchi Cardiovascular: RRR, no significant murmur, no rub Gastrointestinal: soft, non-tender, no distention, positive bowel sounds Musculoskeletal: no edema, pulses present wound vac in place Neurological: non-focal, normal sensation, moves all 4 limbs Psychiatric: normal affect, A&O x 3 Skin: no rash, normal turgor Dx/Plan (1) Acute osteomyelitis of metatarsal bone of left foot Code(s): M86.172 - OTHER ACUTE OSTEOMYELITIS, LEFT ANKLE AND FOOT Status: Acute Comment: s/p amputation of metatarsal (2) Diabetic foot infection Code(s): E11.69 - TYPE 2 DIABETES MELLITUS WITH OTHER SPECIFIED COMPLICATION; L08.9 - LOCAL INFECTION OF THE SKIN AND SUBCUTANEOUS TISSUE, UNSP Status: Acute (3) Hypotension Status: Acute (4) Sepsis Code(s): A41.9 - SEPSIS, UNSPECIFIED ORGANISM Status: Acute (5) Anemia, normocytic normochromic Code(s): D64.9 - ANEMIA, UNSPECIFIED Status: Chronic (6) Diabetes type 2, controlled Code(s): E11.9 - TYPE 2 DIABETES MELLITUS WITHOUT COMPLICATIONS Status: Chronic (7) Hypertension Code(s): I10 - ESSENTIAL (PRIMARY) HYPERTENSION Status: Chronic - Plan cont current plan of care, 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 * symptomatic treatment. Review of Systems - Review of Systems ENT: negative: Ear Pain, Ear Discharge, Nose Pain, Nose Discharge, Nose Congestion, Mouth Pain, Mouth Swelling, Throat Pain, Throat Swelling, Other Respiratory: negative: Cough, Dry, Shortness of Breath, Hemoptysis, SOB with Excertion, Pleuritic Pain, Sputum, Wheezing Cardiovascular: negative: Chest Pain, Palpitations, Orthopnea, Paroxysmal Noc. Dyspnea, Edema, Light Headedness, Other Gastrointestinal: negative: Nausea, Vomiting, Abdominal Pain, Diarrhea, Constipation, Melena, Hematochezia, Other Genitourinary: negative: Dysuria, Frequency, Incontinence, Hematuria, Retention , Other Musculoskeletal: negative: Neck Pain, Shoulder Pain, Arm Pain, Back Pain, Hand Pain, Leg Pain, Foot Pain, Other - Medications/Allergies Allergies/Adverse Reactions: Allergies Allergy/AdvReac Type Severity Reaction Status Date / Time No Known Drug Allergies Allergy Verified 12/24/15 21:01 Medications: Current Medications Acetaminophen (Tylenol) 650 mg PO Q4H PRN PRN Reason: Headache/Fever or Pain Hydrocodone Bitart/Acetaminophen ([place] 5/325) 1 tab PO Q4H PRN PRN Reason: Moderate Pain (4-6) Artificial Tears (Tears Renewed 15ml Bottle) 0 drop EA EYE PRN PRN PRN Reason: Dry Eyes Dextrose/Water (Dextrose 50%) 25 gm SLOW IVP PRN PRN PRN Reason: Hypoglycemia Enoxaparin Sodium (Lovenox) 40 mg SC 0900 [facility] Last Admin: 02/06/17 08:32 Dose: 40 mg Famotidine (Pepcid) 20 mg PO DAILY [facility] Last Admin: 02/06/17 08:32 Dose: 20 mg Glucagon (Glucagon) 1 mg IM PRN PRN PRN Reason: Hypoglycemia Guaifenesin (Robitussin Sf) 200 mg PO Q4H PRN PRN Reason: Cough Last Admin: 02/03/17 21:49 Dose: 200 mg Hydralazine HCl (Apresoline) 10 mg SLOW IVP Q4H PRN PRN Reason: Systolic BP > 180 Dextrose/Water (D5w) 1,000 mls @ 0 mls/hr IV .Q0M PRN; As Directed PRN Reason: Hypoglycemia Meropenem 1 gm/ Sodium (Chloride) 100 mls @ 200 mls/hr IVPB Q8HR [facility] Last Admin: 02/06/17 05:16 Dose: 100 mls Sodium Chloride (Normal Saline 0.9%) 1,000 mls @ 100 mls/hr IV .Q10H [facility] Last Admin: 02/06/17 09:53 Dose: 1,000 mls Vancomycin HCl 750 mg/ Sodium (Chloride) 250 mls @ 250 mls/hr IVPB 1000,2200 [facility] Last Admin: 02/06/17 09:48 Dose: 250 mls Insulin Human Isoph/Insulin Regular (Humulin 70/30) 10 units SC AC [facility] Last Admin: 02/06/17 08:33 Dose: 10 unit Insulin Human Lispro (Humalog) 0 units SC .MODERATE SLIDING SC PRN PRN Reason: Moderate Correctional Scale Last Admin: 02/06/17 06:45 Dose: 4 unit Insulin Human Lispro (Humalog) 0 units SC .BEDTIME SLIDING SC PRN PRN Reason: Bedtime Correctional Scale Loperamide HCl (Imodium) 2 mg PO PRN PRN PRN Reason: Diarrhea/Loose Stools Loratadine (Claritin) 10 mg PO DAILYPRN PRN PRN Reason: Sinus Symptoms Magnesium Hydroxide (Milk Of Magnesium) 30 ml PO DAILYPRN PRN PRN Reason: Constipation Mineral Oil/White Petrolatum (Eucerin Cream) 0 gm TOP BIDPRN PRN PRN Reason: Dry Skin Miscellaneous Medication (Pharmacy To Dose) 1 each IVPB PRN PRN PRN Reason: Pharmacy to dose Ondansetron HCl (Zofran Odt) 4 mg PO Q6H PRN PRN Reason: Nausea/Vomiting Ondansetron HCl (Zofran) 4 mg IVP Q6H PRN PRN Reason: Nausea/Vomiting Saccharomyces Boulardii (Florastor) 250 mg PO DAILY [facility] Last Admin: 02/06/17 08:32 Dose: 250 mg Senna (Senokot) 2 tab PO HSPRN PRN PRN Reason: Constipation Sodium Chloride ([place] Nasal [place] 0.65%) 0 ml EA NARE QIDPRN PRN PRN Reason: Nasal Congestion Last Admin: 02/03/17 22:45 Dose: 1 spr Zolpidem Tartrate (Ambien) 5 mg PO HSPRN PRN PRN Reason: Insomnia
--- NOTE | 2017-02-06 13:24 | PRG ---
DATE OF SERVICE: 02/06/2017 The patient had amputation of the first toe at the transmetatarsal level. The operative report was reviewed and the dissection was carried down to the skin and chronic abscess cavity with chronic kourtney earing granulation tissue near the metatarsal head. This was spongy and eroded and the toe amputate d through the metatarsophalangeal joint. The metatarsal bone was transected at the mid shaft level and cultures were sent. The patient now has no headaches, visual symptoms, sore throat, odynophagia , dysphagia, no cough or sputum production or chest pain, no abdominal pain or diarrhea. No genitou rinary symptoms. No neurological symptoms. White cell count 7.7, hemoglobin 9, platelets 294 and creatinine 0.79. Cultures thus far, of course it is too early to tell, but no organisms seen at 24 hours. ASSESSMENT AND DISCUSSION: Type 2 diabetes with osteomyelitis, status post transmetatarsal amputati on first toe, waiting for culture results and then disposition. The margin of clearance seems to be adequate for discharge on oral antimicrobials, but will have to wait for the final results of cultu res. Her last culture from 01/01/2017 showed E. faecalis and gallinarum.
[2017-02-07] MEDS: Meropenem 1 GM in Sodium Chloride 0.9% 100 ML IVPB SCH ×3 (05:39→21:13)
[2017-02-07] MEDS: HumaLOG 300 UNITS/3 ML VIAL SC PRN (05:42)
[2017-02-07] MEDS: Saccharomyces boulardii 250 MG CAP PO SCH (08:10)
[2017-02-07] MEDS: Famotidine 20 MG TAB PO SCH (08:10)
[2017-02-07] MEDS: Enoxaparin Sodium 40 MG/0.4 ML SYRINGE SC SCH (08:10)
[2017-02-07] MEDS: Insulin NPH/Reg Insulin Hm 300 UNITS/3 ML VIAL SC SCH ×3 (08:11→16:12)
[2017-02-07] MEDS: Vancomycin HCl 750 MG in Sodium Chloride 0.9% 250 ML 250 ML IVPB SCH ×2 (08:21→22:20)
--- NOTE | 2017-02-07 10:36 | PDOC.PN ---
- Subjective Encounter Start Date: 02/07/17 Encounter Start Time: 09:55 Patient seen and examined. No new complaints. No overnight events - Objective Resuscitation Status: Resuscitation Status FULL:Full Resuscitation MAR Reviewed: Yes Vital Signs & Weight: Vital Signs (12 hours) Temp Pulse Resp BP Pulse Ox 02/07/17 08:00 98.1 F 89 16 97 02/07/17 07:02 98.1 F 89 16 159/84 H 97 02/07/17 03:47 98.7 F 85 20 130/76 98 02/07/17 00:18 98.5 F 86 20 155/80 H 96 Weight Admit Weight 148 lb 4 oz Weight 148 lb 4 oz I&O: 02/06/17 02/07/17 02/08/17 06:59 06:59 06:59 Intake Total 900 4000 240 Output Total 10 Balance 900 3990 240 Result Diagrams: 02/03/17 04:33 02/03/17 04:33 Additional Labs: Accuchecks 02/07/17 02/06/17 02/06/17 03:46 20:17 15:53 POC Glucose 159 H 228 H 95 02/06/17 11:11 POC Glucose 159 H Phys Exam - Physical Examination Constitutional: NAD HEENT: PERRLA, moist MMs, sclera anicteric Neck: no JVD, supple Respiratory: no wheezing, no rales, no rhonchi Cardiovascular: RRR, no significant murmur, no rub Gastrointestinal: soft, non-tender, no distention, positive bowel sounds Musculoskeletal: no edema, pulses present left foot with wound vac Neurological: non-focal, normal sensation Psychiatric: normal affect, A&O x 3 Skin: no rash, normal turgor Dx/Plan (1) Acute osteomyelitis of metatarsal bone of left foot Code(s): M86.172 - OTHER ACUTE OSTEOMYELITIS, LEFT ANKLE AND FOOT Status: Acute Comment: s/p amputation of metatarsal (2) Diabetic foot infection Code(s): E11.69 - TYPE 2 DIABETES MELLITUS WITH OTHER SPECIFIED COMPLICATION; L08.9 - LOCAL INFECTION OF THE SKIN AND SUBCUTANEOUS TISSUE, UNSP Status: Acute (3) Hypotension Status: Acute (4) Sepsis Code(s): A41.9 - SEPSIS, UNSPECIFIED ORGANISM Status: Acute (5) Anemia, normocytic normochromic Code(s): D64.9 - ANEMIA, UNSPECIFIED Status: Chronic (6) Diabetes type 2, controlled Code(s): E11.9 - TYPE 2 DIABETES MELLITUS WITHOUT COMPLICATIONS Status: Chronic (7) Hypertension Code(s): I10 - ESSENTIAL (PRIMARY) HYPERTENSION Status: Chronic - Plan 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 Review of Systems - Review of Systems ENT: negative: Ear Pain, Ear Discharge, Nose Pain, Nose Discharge, Nose Congestion, Mouth Pain, Mouth Swelling, Throat Pain, Throat Swelling, Other Respiratory: negative: Cough, Dry, Shortness of Breath, Hemoptysis, SOB with Excertion, Pleuritic Pain, Sputum, Wheezing Cardiovascular: negative: Chest Pain, Palpitations, Orthopnea, Paroxysmal Noc. Dyspnea, Edema, Light Headedness, Other Gastrointestinal: negative: Nausea, Vomiting, Abdominal Pain, Diarrhea, Constipation, Melena, Hematochezia, Other Genitourinary: negative: Dysuria, Frequency, Incontinence, Hematuria, Retention , Other Musculoskeletal: negative: Neck Pain, Shoulder Pain, Arm Pain, Back Pain, Hand Pain, Leg Pain, Foot Pain, Other - Medications/Allergies Allergies/Adverse Reactions: Allergies Allergy/AdvReac Type Severity Reaction Status Date / Time No Known Drug Allergies Allergy Verified 12/24/15 21:01 Medications: Current Medications Acetaminophen (Tylenol) 650 mg PO Q4H PRN PRN Reason: Headache/Fever or Pain Hydrocodone Bitart/Acetaminophen ([place] 5/325) 1 tab PO Q4H PRN PRN Reason: Moderate Pain (4-6) Artificial Tears (Tears Renewed 15ml Bottle) 0 drop EA EYE PRN PRN PRN Reason: Dry Eyes Dextrose/Water (Dextrose 50%) 25 gm SLOW IVP PRN PRN PRN Reason: Hypoglycemia Enoxaparin Sodium (Lovenox) 40 mg SC 0900 [facility] Last Admin: 02/07/17 08:10 Dose: 40 mg Famotidine (Pepcid) 20 mg PO DAILY [facility] Last Admin: 02/07/17 08:10 Dose: 20 mg Glucagon (Glucagon) 1 mg IM PRN PRN PRN Reason: Hypoglycemia Guaifenesin (Robitussin Sf) 200 mg PO Q4H PRN PRN Reason: Cough Last Admin: 02/03/17 21:49 Dose: 200 mg Hydralazine HCl (Apresoline) 10 mg SLOW IVP Q4H PRN PRN Reason: Systolic BP > 180 Dextrose/Water (D5w) 1,000 mls @ 0 mls/hr IV .Q0M PRN; As Directed PRN Reason: Hypoglycemia Meropenem 1 gm/ Sodium (Chloride) 100 mls @ 200 mls/hr IVPB Q8HR [facility] Last Admin: 02/07/17 05:39 Dose: 100 mls Sodium Chloride (Normal Saline 0.9%) 1,000 mls @ 100 mls/hr IV .Q10H [facility] Last Admin: 02/06/17 21:52 Dose: 1,000 mls Vancomycin HCl 750 mg/ Sodium (Chloride) 250 mls @ 250 mls/hr IVPB 1000,2200 [facility] Last Admin: 02/07/17 08:21 Dose: 250 mls Insulin Human Isoph/Insulin Regular (Humulin 70/30) 10 units SC AC [facility] Last Admin: 02/07/17 08:11 Dose: 10 unit Insulin Human Lispro (Humalog) 0 units SC .MODERATE SLIDING SC PRN PRN Reason: Moderate Correctional Scale Last Admin: 02/07/17 05:42 Dose: 2 unit Insulin Human Lispro (Humalog) 0 units SC .BEDTIME SLIDING SC PRN PRN Reason: Bedtime Correctional Scale Loperamide HCl (Imodium) 2 mg PO PRN PRN PRN Reason: Diarrhea/Loose Stools Loratadine (Claritin) 10 mg PO DAILYPRN PRN PRN Reason: Sinus Symptoms Magnesium Hydroxide (Milk Of Magnesium) 30 ml PO DAILYPRN PRN PRN Reason: Constipation Mineral Oil/White Petrolatum (Eucerin Cream) 0 gm TOP BIDPRN PRN PRN Reason: Dry Skin Miscellaneous Medication (Pharmacy To Dose) 1 each IVPB PRN PRN PRN Reason: Pharmacy to dose Ondansetron HCl (Zofran Odt) 4 mg PO Q6H PRN PRN Reason: Nausea/Vomiting Ondansetron HCl (Zofran) 4 mg IVP Q6H PRN PRN Reason: Nausea/Vomiting Saccharomyces Boulardii (Florastor) 250 mg PO DAILY [facility] Last Admin: 02/07/17 08:10 Dose: 250 mg Senna (Senokot) 2 tab PO HSPRN PRN PRN Reason: Constipation Sodium Chloride ([place] Nasal [place] 0.65%) 0 ml EA NARE QIDPRN PRN PRN Reason: Nasal Congestion Last Admin: 02/03/17 22:45 Dose: 1 spr Zolpidem Tartrate (Ambien) 5 mg PO HSPRN PRN PRN Reason: Insomnia
[2017-02-07] MEDS: HYDROcodone/Acetaminophen 5/325 mg Tablet PO PRN (13:51)
[2017-02-07] MEDS ORDERED: Lidocaine 4% Topical Sol 50 ML BOT TOP SCH (14:00)
[2017-02-07] MEDS: Sodium Chloride 0.9% 1,000 ML IV SCH (14:26)
[2017-02-07 21:34] LABS: Vancomycin, Trough 16.5 ug/mL
[2017-02-08] MEDS: Sodium Chloride 0.9% 1,000 ML IV SCH ×3 (05:06→17:28)
[2017-02-08] MEDS: Meropenem 1 GM in Sodium Chloride 0.9% 100 ML IVPB SCH ×3 (05:07→21:14)
[2017-02-08] MEDS: HumaLOG 300 UNITS/3 ML VIAL SC PRN (05:10)
[2017-02-08] MEDS: Insulin NPH/Reg Insulin Hm 300 UNITS/3 ML VIAL SC SCH ×3 (08:02→17:28)
[2017-02-08] MEDS: Famotidine 20 MG TAB PO SCH (08:03)
[2017-02-08] MEDS: Enoxaparin Sodium 40 MG/0.4 ML SYRINGE SC SCH (08:03)
[2017-02-08] MEDS: Saccharomyces boulardii 250 MG CAP PO SCH (08:03)
[2017-02-08] MEDS: Vancomycin HCl 750 MG in Sodium Chloride 0.9% 250 ML 250 ML IVPB SCH ×2 (09:44→21:20)
--- NOTE | 2017-02-08 12:06 | PDOC.PN ---
- Subjective Encounter Start Date: 02/08/17 Encounter Start Time: 09:15 Patient seen and examined. No new complaints. No overnight events - Objective Resuscitation Status: Resuscitation Status FULL:Full Resuscitation MAR Reviewed: Yes Vital Signs & Weight: Vital Signs (12 hours) Temp Pulse Resp BP Pulse Ox 02/08/17 08:30 98.4 F 92 18 02/08/17 08:00 98.4 F 92 18 177/98 H 96 Weight Admit Weight 148 lb 4 oz Weight 148 lb 4 oz I&O: 02/07/17 02/08/17 02/09/17 06:59 06:59 06:59 Intake Total 4000 3500 Output Total 10 Balance 3990 3500 Result Diagrams: 02/03/17 04:33 02/03/17 04:33 Additional Labs: Accuchecks 02/08/17 02/07/17 02/07/17 04:32 20:59 15:54 POC Glucose 154 H 144 H 107 Phys Exam - Physical Examination Constitutional: NAD HEENT: PERRLA, moist MMs, sclera anicteric Neck: no JVD, supple Respiratory: no wheezing, no rales, no rhonchi Cardiovascular: RRR, no significant murmur, no rub Gastrointestinal: soft, non-tender, no distention, positive bowel sounds Musculoskeletal: no edema, pulses present left foot with dressing and wound vac in place Neurological: non-focal, normal sensation, moves all 4 limbs Psychiatric: normal affect, A&O x 3 Skin: no rash, normal turgor Dx/Plan (1) Acute osteomyelitis of metatarsal bone of left foot Code(s): M86.172 - OTHER ACUTE OSTEOMYELITIS, LEFT ANKLE AND FOOT Status: Acute Comment: s/p amputation of metatarsal (2) Diabetic foot infection Code(s): E11.69 - TYPE 2 DIABETES MELLITUS WITH OTHER SPECIFIED COMPLICATION; L08.9 - LOCAL INFECTION OF THE SKIN AND SUBCUTANEOUS TISSUE, UNSP Status: Acute (3) Hypotension Status: Acute (4) Sepsis Code(s): A41.9 - SEPSIS, UNSPECIFIED ORGANISM Status: Acute (5) Anemia, normocytic normochromic Code(s): D64.9 - ANEMIA, UNSPECIFIED Status: Chronic (6) Diabetes type 2, controlled Code(s): E11.9 - TYPE 2 DIABETES MELLITUS WITHOUT COMPLICATIONS Status: Chronic (7) Hypertension Code(s): I10 - ESSENTIAL (PRIMARY) HYPERTENSION Status: Chronic - Plan 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 Review of Systems - Review of Systems ENT: negative: Ear Pain, Ear Discharge, Nose Pain, Nose Discharge, Nose Congestion, Mouth Pain, Mouth Swelling, Throat Pain, Throat Swelling, Other Respiratory: negative: Cough, Dry, Shortness of Breath, Hemoptysis, SOB with Excertion, Pleuritic Pain, Sputum, Wheezing Cardiovascular: negative: Chest Pain, Palpitations, Orthopnea, Paroxysmal Noc. Dyspnea, Edema, Light Headedness, Other Gastrointestinal: negative: Nausea, Vomiting, Abdominal Pain, Diarrhea, Constipation, Melena, Hematochezia, Other Genitourinary: negative: Dysuria, Frequency, Incontinence, Hematuria, Retention , Other Musculoskeletal: negative: Neck Pain, Shoulder Pain, Arm Pain, Back Pain, Hand Pain, Leg Pain, Foot Pain, Other Skin: negative: Rash, Lesions, Dav[place], Bruising, Other - Medications/Allergies Allergies/Adverse Reactions: Allergies Allergy/AdvReac Type Severity Reaction Status Date / Time No Known Drug Allergies Allergy Verified 12/24/15 21:01 Medications: Current Medications Acetaminophen (Tylenol) 650 mg PO Q4H PRN PRN Reason: Headache/Fever or Pain Hydrocodone Bitart/Acetaminophen ([place] 5/325) 1 tab PO Q4H PRN PRN Reason: Moderate Pain (4-6) Last Admin: 02/07/17 13:51 Dose: 1 tab Artificial Tears (Tears Renewed 15ml Bottle) 0 drop EA EYE PRN PRN PRN Reason: Dry Eyes Dextrose/Water (Dextrose 50%) 25 gm SLOW IVP PRN PRN PRN Reason: Hypoglycemia Enoxaparin Sodium (Lovenox) 40 mg SC 0900 [facility] Last Admin: 02/08/17 08:03 Dose: 40 mg Famotidine (Pepcid) 20 mg PO DAILY [facility] Last Admin: 02/08/17 08:03 Dose: 20 mg Glucagon (Glucagon) 1 mg IM PRN PRN PRN Reason: Hypoglycemia Guaifenesin (Robitussin Sf) 200 mg PO Q4H PRN PRN Reason: Cough Last Admin: 02/03/17 21:49 Dose: 200 mg Hydralazine HCl (Apresoline) 10 mg SLOW IVP Q4H PRN PRN Reason: Systolic BP > 180 Last Admin: 02/07/17 11:47 Dose: 10 mg Dextrose/Water (D5w) 1,000 mls @ 0 mls/hr IV .Q0M PRN; As Directed PRN Reason: Hypoglycemia Meropenem 1 gm/ Sodium (Chloride) 100 mls @ 200 mls/hr IVPB Q8HR [facility] Last Admin: 02/08/17 05:07 Dose: 100 mls Sodium Chloride (Normal Saline 0.9%) 1,000 mls @ 100 mls/hr IV .Q10H [facility] Last Admin: 02/08/17 05:06 Dose: 1,000 mls Vancomycin HCl 750 mg/ Sodium (Chloride) 250 mls @ 250 mls/hr IVPB 1000,2200 [facility] Last Admin: 02/08/17 09:44 Dose: 250 mls Insulin Human Isoph/Insulin Regular (Humulin 70/30) 10 units SC AC [facility] Last Admin: 02/08/17 11:07 Dose: 10 unit Insulin Human Lispro (Humalog) 0 units SC .MODERATE SLIDING SC PRN PRN Reason: Moderate Correctional Scale Last Admin: 02/08/17 05:10 Dose: 2 unit Insulin Human Lispro (Humalog) 0 units SC .BEDTIME SLIDING SC PRN PRN Reason: Bedtime Correctional Scale Lidocaine HCl (Xylocaine 4% Topical Alejandrina) 0 ml TOP ASDIR [facility] Loperamide HCl (Imodium) 2 mg PO PRN PRN PRN Reason: Diarrhea/Loose Stools Loratadine (Claritin) 10 mg PO DAILYPRN PRN PRN Reason: Sinus Symptoms Magnesium Hydroxide (Milk Of Magnesium) 30 ml PO DAILYPRN PRN PRN Reason: Constipation Mineral Oil/White Petrolatum (Eucerin Cream) 0 gm TOP BIDPRN PRN PRN Reason: Dry Skin Miscellaneous Medication (Pharmacy To Dose) 1 each IVPB PRN PRN PRN Reason: Pharmacy to dose Ondansetron HCl (Zofran Odt) 4 mg PO Q6H PRN PRN Reason: Nausea/Vomiting Ondansetron HCl (Zofran) 4 mg IVP Q6H PRN PRN Reason: Nausea/Vomiting Saccharomyces Boulardii (Florastor) 250 mg PO DAILY [facility] Last Admin: 02/08/17 08:03 Dose: 250 mg Senna (Senokot) 2 tab PO HSPRN PRN PRN Reason: Constipation Sodium Chloride ([place] Nasal [place] 0.65%) 0 ml EA NARE QIDPRN PRN PRN Reason: Nasal Congestion Last Admin: 02/03/17 22:45 Dose: 1 spr Zolpidem Tartrate (Ambien) 5 mg PO HSPRN PRN PRN Reason: Insomnia
--- NOTE | 2017-02-08 16:28 | PRG ---
DATE OF SERVICE: 02/08/2017 SUBJECTIVE: Ms. Aretha Joseph is feeling well. No headaches, visual symptoms, sore throat, odyn ophagia or dysphagia. No cough or sputum production. Minimal foot pain. Patient had the ray amputa tion. OBJECTIVE: VITAL SIGNS: Normal, slightly tachycardic, slight elevation in systolic blood pressure. GENERAL: Awake, alert and oriented. LUNGS: Clear. HEART: S1 and S2, regular rate. ABDOMEN: Soft and not distended. Wound showed the fresh area of amputation with an open wound. [facility] has negative pressure dressing at this time. LABORATORY DATA: Last chemistries from 02/03, normal creatinine. White cell count is 7.7 from 01/07 0. Microbiology with the only findings with E. faecalis. The cultures from the latest bone amputat ion showed no growth in 3 days. Pathology of the surgical specimen with a clear margin. ASSESSMENT AND PLAN: Type 2 diabetes and osteomyelitis, status post transmetatarsal amputation. Cu ltures thus far negative. Recommend discharge planning on Augmentin and ciprofloxacin for 30 days o rally.
[2017-02-09] MEDS: Meropenem 1 GM in Sodium Chloride 0.9% 100 ML IVPB SCH ×3 (05:23→21:15)
[2017-02-09] MEDS: HumaLOG 300 UNITS/3 ML VIAL SC PRN ×2 (05:33→11:31)
[2017-02-09] MEDS: Insulin NPH/Reg Insulin Hm 300 UNITS/3 ML VIAL SC SCH ×3 (08:53→17:15)
[2017-02-09] MEDS: Saccharomyces boulardii 250 MG CAP PO SCH (08:56)
[2017-02-09] MEDS: Famotidine 20 MG TAB PO SCH (08:56)
[2017-02-09] MEDS: Enoxaparin Sodium 40 MG/0.4 ML SYRINGE SC SCH (08:57)
[2017-02-09 09:49] LABS: Vancomycin, Trough 9.7 ug/mL
[2017-02-09] MEDS: Vancomycin HCl 1 GM in Premix Bag 1 BAG IVPB SCH ×2 (10:08→22:07)
[2017-02-09] MEDS: Sodium Chloride 0.9% 1,000 ML IV SCH ×2 (10:08→17:17)
[2017-02-09] MEDS: HYDROcodone/Acetaminophen 5/325 mg Tablet PO PRN (10:58)
--- NOTE | 2017-02-09 13:16 | PDOC.PN ---
- Subjective Encounter Start Date: 02/09/17 Encounter Start Time: 08:40 Patient seen and examined. No new complaints. No overnight events - Objective Resuscitation Status: Resuscitation Status FULL:Full Resuscitation MAR Reviewed: Yes Vital Signs & Weight: Vital Signs (12 hours) Temp Pulse Resp BP Pulse Ox 02/09/17 08:00 97.8 F 100 16 99 02/09/17 07:21 97.8 F 100 16 146/93 H 99 Weight Admit Weight 148 lb 4 oz Weight 148 lb 4 oz I&O: 02/08/17 02/09/17 02/10/17 06:59 06:59 06:59 Intake Total 3500 3400 Balance 3500 3400 Result Diagrams: 02/03/17 04:33 02/03/17 04:33 Additional Labs: Accuchecks 02/09/17 02/09/17 02/08/17 10:50 04:55 19:34 POC Glucose 274 H 199 H 168 H 02/08/17 17:07 POC Glucose 163 H Phys Exam - Physical Examination Constitutional: NAD HEENT: PERRLA, moist MMs, sclera anicteric Neck: no JVD, supple Respiratory: no wheezing, no rales, no rhonchi Cardiovascular: RRR, no significant murmur, no rub Gastrointestinal: soft, non-tender, no distention, positive bowel sounds Musculoskeletal: no edema, pulses present left foot with wound vac in place Neurological: non-focal, normal sensation, moves all 4 limbs Psychiatric: normal affect, A&O x 3 Skin: no rash, normal turgor Dx/Plan (1) Acute osteomyelitis of metatarsal bone of left foot Code(s): M86.172 - OTHER ACUTE OSTEOMYELITIS, LEFT ANKLE AND FOOT Status: Acute Comment: s/p amputation of metatarsal (2) Diabetic foot infection Code(s): E11.69 - TYPE 2 DIABETES MELLITUS WITH OTHER SPECIFIED COMPLICATION; L08.9 - LOCAL INFECTION OF THE SKIN AND SUBCUTANEOUS TISSUE, UNSP Status: Acute (3) Hypotension Status: Acute (4) Sepsis Code(s): A41.9 - SEPSIS, UNSPECIFIED ORGANISM Status: Acute (5) Anemia, normocytic normochromic Code(s): D64.9 - ANEMIA, UNSPECIFIED Status: Chronic (6) Diabetes type 2, controlled Code(s): E11.9 - TYPE 2 DIABETES MELLITUS WITHOUT COMPLICATIONS Status: Chronic (7) Hypertension Code(s): I10 - ESSENTIAL (PRIMARY) HYPERTENSION Status: Chronic - Plan cont current plan of care, 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 continue meropenam and vancomycin Review of Systems - Review of Systems ENT: negative: Ear Pain, Ear Discharge, Nose Pain, Nose Discharge, Nose Congestion, Mouth Pain, Mouth Swelling, Throat Pain, Throat Swelling, Other Respiratory: negative: Cough, Dry, Shortness of Breath, Hemoptysis, SOB with Excertion, Pleuritic Pain, Sputum, Wheezing Cardiovascular: negative: Chest Pain, Palpitations, Orthopnea, Paroxysmal Noc. Dyspnea, Edema, Light Headedness, Other Gastrointestinal: negative: Nausea, Vomiting, Abdominal Pain, Diarrhea, Constipation, Melena, Hematochezia, Other Genitourinary: negative: Dysuria, Frequency, Incontinence, Hematuria, Retention , Other Musculoskeletal: negative: Neck Pain, Shoulder Pain, Arm Pain, Back Pain, Hand Pain, Leg Pain, Foot Pain, Other - Medications/Allergies Allergies/Adverse Reactions: Allergies Allergy/AdvReac Type Severity Reaction Status Date / Time No Known Drug Allergies Allergy Verified 12/24/15 21:01 Medications: Current Medications Acetaminophen (Tylenol) 650 mg PO Q4H PRN PRN Reason: Headache/Fever or Pain Last Admin: 02/08/17 21:20 Dose: 650 mg Hydrocodone Bitart/Acetaminophen ([place] 5/325) 1 tab PO Q4H PRN PRN Reason: Moderate Pain (4-6) Last Admin: 02/09/17 10:58 Dose: 1 tab Artificial Tears (Tears Renewed 15ml Bottle) 0 drop EA EYE PRN PRN PRN Reason: Dry Eyes Dextrose/Water (Dextrose 50%) 25 gm SLOW IVP PRN PRN PRN Reason: Hypoglycemia Enoxaparin Sodium (Lovenox) 40 mg SC 0900 [facility] Last Admin: 02/09/17 08:57 Dose: 40 mg Famotidine (Pepcid) 20 mg PO DAILY [facility] Last Admin: 02/09/17 08:56 Dose: 20 mg Glucagon (Glucagon) 1 mg IM PRN PRN PRN Reason: Hypoglycemia Guaifenesin (Robitussin Sf) 200 mg PO Q4H PRN PRN Reason: Cough Last Admin: 02/03/17 21:49 Dose: 200 mg Hydralazine HCl (Apresoline) 10 mg SLOW IVP Q4H PRN PRN Reason: Systolic BP > 180 Last Admin: 02/07/17 11:47 Dose: 10 mg Dextrose/Water (D5w) 1,000 mls @ 0 mls/hr IV .Q0M PRN; As Directed PRN Reason: Hypoglycemia Meropenem 1 gm/ Sodium (Chloride) 100 mls @ 200 mls/hr IVPB Q8HR [facility] Last Admin: 02/09/17 05:23 Dose: 100 mls Sodium Chloride (Normal Saline 0.9%) 1,000 mls @ 100 mls/hr IV .Q10H [facility] Last Admin: 02/09/17 10:08 Dose: 1,000 mls Vancomycin HCl 1 gm/ Device 200 mls @ 200 mls/hr IVPB 1000,2200 [facility] Last Admin: 02/09/17 10:08 Dose: 200 mls Insulin Human Isoph/Insulin Regular (Humulin 70/30) 10 units SC AC [facility] Last Admin: 02/09/17 11:27 Dose: 10 unit Insulin Human Lispro (Humalog) 0 units SC .MODERATE SLIDING SC PRN PRN Reason: Moderate Correctional Scale Last Admin: 02/09/17 11:31 Dose: 6 unit Insulin Human Lispro (Humalog) 0 units SC .BEDTIME SLIDING SC PRN PRN Reason: Bedtime Correctional Scale Lidocaine HCl (Xylocaine 4% Topical Alejandrina) 0 ml TOP ASDIR [facility] Last Admin: 02/09/17 11:01 Dose: 1 applic Loperamide HCl (Imodium) 2 mg PO PRN PRN PRN Reason: Diarrhea/Loose Stools Loratadine (Claritin) 10 mg PO DAILYPRN PRN PRN Reason: Sinus Symptoms Magnesium Hydroxide (Milk Of Magnesium) 30 ml PO DAILYPRN PRN PRN Reason: Constipation Mineral Oil/White Petrolatum (Eucerin Cream) 0 gm TOP BIDPRN PRN PRN Reason: Dry Skin Miscellaneous Medication (Pharmacy To Dose) 1 each IVPB PRN PRN PRN Reason: Pharmacy to dose Ondansetron HCl (Zofran Odt) 4 mg PO Q6H PRN PRN Reason: Nausea/Vomiting Ondansetron HCl (Zofran) 4 mg IVP Q6H PRN PRN Reason: Nausea/Vomiting Saccharomyces Boulardii (Florastor) 250 mg PO DAILY [facility] Last Admin: 02/09/17 08:56 Dose: 250 mg Senna (Senokot) 2 tab PO HSPRN PRN PRN Reason: Constipation Sodium Chloride ([place] Nasal [place] 0.65%) 0 ml EA NARE QIDPRN PRN PRN Reason: Nasal Congestion Last Admin: 02/03/17 22:45 Dose: 1 spr Zolpidem Tartrate (Ambien) 5 mg PO HSPRN PRN PRN Reason: Insomnia
[2017-02-10] MEDS: Sodium Chloride 0.9% 1,000 ML IV SCH (00:05)
[2017-02-10] MEDS: Meropenem 1 GM in Sodium Chloride 0.9% 100 ML IVPB SCH ×2 (05:21→14:31)
[2017-02-10 07:22] VITALS: BP 153/78; TEMP 98.5
[2017-02-10] MEDS: Famotidine 20 MG TAB PO SCH (09:05)
[2017-02-10] MEDS: Saccharomyces boulardii 250 MG CAP PO SCH (09:05)
[2017-02-10] MEDS: Enoxaparin Sodium 40 MG/0.4 ML SYRINGE SC SCH (09:06)
[2017-02-10] MEDS: Insulin NPH/Reg Insulin Hm 300 UNITS/3 ML VIAL SC SCH ×2 (09:07→11:55)
[2017-02-10] MEDS: Vancomycin HCl 1 GM in Premix Bag 1 BAG IVPB SCH (09:11)
[2017-02-10] MEDS: HumaLOG 300 UNITS/3 ML VIAL SC PRN (11:57)
--- NOTE | 2017-02-10 13:14 | PDOC.PN ---
- Subjective Encounter Start Date: 02/10/17 Encounter Start Time: 10:20 Subjective: feels better - Objective Resuscitation Status: Resuscitation Status FULL:Full Resuscitation MAR Reviewed: Yes Vital Signs & Weight: Vital Signs (12 hours) Temp Pulse Resp BP Pulse Ox 02/10/17 08:00 98.5 F 96 18 96 02/10/17 07:20 98.5 F 96 18 153/78 H 96 02/10/17 04:00 98.1 F 92 18 130/70 98 Weight Admit Weight 148 lb 4 oz Weight 148 lb 4 oz I&O: 02/09/17 02/10/17 02/11/17 06:59 06:59 06:59 Intake Total 3400 2100 Balance 3400 2100 Result Diagrams: 02/03/17 04:33 02/03/17 04:33 Additional Labs: Accuchecks 02/10/17 02/10/17 02/10/17 11:15 09:07 04:39 POC Glucose 230 H 247 H 187 H 02/09/17 02/09/17 19:22 15:41 POC Glucose 285 H 84 Phys Exam - Physical Examination HEENT: PERRLA, moist MMs Neck: no JVD, supple Respiratory: no wheezing, no rales Cardiovascular: RRR, no significant murmur Gastrointestinal: soft, non-tender, positive bowel sounds Musculoskeletal: pulses present has wound vac and dressing on left foot Neurological: non-focal, moves all 4 limbs Psychiatric: A&O x 3 Dx/Plan (1) Acute osteomyelitis of metatarsal bone of left foot Code(s): M86.172 - OTHER ACUTE OSTEOMYELITIS, LEFT ANKLE AND FOOT Status: Acute Comment: s/p amputation of metatarsal of left gr toe (2) Sepsis Code(s): A41.9 - SEPSIS, UNSPECIFIED ORGANISM Status: Acute Qualifiers: Sepsis type: sepsis due to unspecified organism Qualified Code(s): A41.9 - Sepsis, unspecified organism (3) Anemia, normocytic normochromic Code(s): D64.9 - ANEMIA, UNSPECIFIED Status: Chronic (4) Diabetes type 2, controlled Code(s): E11.9 - TYPE 2 DIABETES MELLITUS WITHOUT COMPLICATIONS Status: Chronic Qualifiers: Diabetes mellitus complication status: with unspecified complications 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: with long 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 dyeing machine operator use Qualified Code(s) : E11.8 - Type 2 diabetes mellitus with unspecified complications; Z79.4 - terminal operator (current) use of insulin; Z79.4 - terminal operator (current) use of insulin; Z79.4 - care home (current) use of insulin; Z79.4 - care home (current) use of insulin (5) Hypertension Code(s): I10 - ESSENTIAL (PRIMARY) HYPERTENSION Status: Chronic Qualifiers: Hypertension type: essential hypertension Qualified Code(s): I10 - Essential (primary) hypertension - Plan is on vanc and meropenem -: awaiting wound vac for home use -: labs in am -: increase NPH to 15 u bid -: for augmentin and cipro outpt use x 30 days * . Review of Systems - Medications/Allergies Allergies/Adverse Reactions: Allergies Allergy/AdvReac Type Severity Reaction Status Date / Time No Known Drug Allergies Allergy Verified 12/24/15 21:01 Medications: Current Medications Acetaminophen (Tylenol) 650 mg PO Q4H PRN PRN Reason: Headache/Fever or Pain Last Admin: 02/08/17 21:20 Dose: 650 mg Hydrocodone Bitart/Acetaminophen ([place] 5/325) 1 tab PO Q4H PRN PRN Reason: Moderate Pain (4-6) Last Admin: 02/09/17 10:58 Dose: 1 tab Artificial Tears (Tears Renewed 15ml Bottle) 0 drop EA EYE PRN PRN PRN Reason: Dry Eyes Dextrose/Water (Dextrose 50%) 25 gm SLOW IVP PRN PRN PRN Reason: Hypoglycemia Enoxaparin Sodium (Lovenox) 40 mg SC 0900 [facility] Last Admin: 02/10/17 09:06 Dose: 40 mg Famotidine (Pepcid) 20 mg PO DAILY [facility] Last Admin: 02/10/17 09:05 Dose: 20 mg Glucagon (Glucagon) 1 mg IM PRN PRN PRN Reason: Hypoglycemia Guaifenesin (Robitussin Sf) 200 mg PO Q4H PRN PRN Reason: Cough Last Admin: 02/03/17 21:49 Dose: 200 mg Hydralazine HCl (Apresoline) 10 mg SLOW IVP Q4H PRN PRN Reason: Systolic BP > 180 Last Admin: 02/07/17 11:47 Dose: 10 mg Dextrose/Water (D5w) 1,000 mls @ 0 mls/hr IV .Q0M PRN; As Directed PRN Reason: Hypoglycemia Meropenem 1 gm/ Sodium (Chloride) 100 mls @ 200 mls/hr IVPB Q8HR [facility] Last Admin: 02/10/17 05:21 Dose: 100 mls Sodium Chloride (Normal Saline 0.9%) 1,000 mls @ 100 mls/hr IV .Q10H [facility] Last Admin: 02/10/17 00:05 Dose: 1,000 mls Vancomycin HCl 1 gm/ Device 200 mls @ 200 mls/hr IVPB 1000,2200 [facility] Last Admin: 02/10/17 09:11 Dose: 200 mls Insulin Human Isoph/Insulin Regular (Humulin 70/30) 10 units SC AC [facility] Last Admin: 02/10/17 11:55 Dose: 10 unit Insulin Human Lispro (Humalog) 0 units SC .MODERATE SLIDING SC PRN PRN Reason: Moderate Correctional Scale Last Admin: 02/10/17 11:57 Dose: 4 unit Insulin Human Lispro (Humalog) 0 units SC .BEDTIME SLIDING SC PRN PRN Reason: Bedtime Correctional Scale Last Admin: 02/09/17 22:27 Dose: 3 unit Lidocaine HCl (Xylocaine 4% Topical Alejandrina) 0 ml TOP ASDIR [facility] Last Admin: 02/09/17 11:01 Dose: 1 applic Loperamide HCl (Imodium) 2 mg PO PRN PRN PRN Reason: Diarrhea/Loose Stools Loratadine (Claritin) 10 mg PO DAILYPRN PRN PRN Reason: Sinus Symptoms Magnesium Hydroxide (Milk Of Magnesium) 30 ml PO DAILYPRN PRN PRN Reason: Constipation Mineral Oil/White Petrolatum (Eucerin Cream) 0 gm TOP BIDPRN PRN PRN Reason: Dry Skin Miscellaneous Medication (Pharmacy To Dose) 1 each IVPB PRN PRN PRN Reason: Pharmacy to dose Ondansetron HCl (Zofran Odt) 4 mg PO Q6H PRN PRN Reason: Nausea/Vomiting Ondansetron HCl (Zofran) 4 mg IVP Q6H PRN PRN Reason: Nausea/Vomiting Saccharomyces Boulardii (Florastor) 250 mg PO DAILY [facility] Last Admin: 02/10/17 09:05 Dose: 250 mg Senna (Senokot) 2 tab PO HSPRN PRN PRN Reason: Constipation Sodium Chloride ([place] Nasal [place] 0.65%) 0 ml EA NARE QIDPRN PRN PRN Reason: Nasal Congestion Last Admin: 02/03/17 22:45 Dose: 1 spr Zolpidem Tartrate (Ambien) 5 mg PO HSPRN PRN PRN Reason: Insomnia
[2017-02-10] MEDS ORDERED: Insulin NPH/Reg Insulin Hm 300 UNITS/3 ML VIAL SC SCH (17:00)
--- NOTE | 2017-02-10 18:10 | DIS ---
DATE OF ADMISSION: 02/02/2017 DATE OF DISCHARGE: 02/10/2017 DISCHARGE DISPOSITION: To home. PRIMARY DISCHARGE DIAGNOSES: Patient is status post amputation of metatarsal of left great toe for osteomyelitis, sepsis. SECONDARY DISCHARGE DIAGNOSES: Diabetes mellitus type 2, chronic anemia, and hypertension. PROCEDURES DONE DURING HOSPITALIZATION: Patient has had amputation of left great toe metatarsal hea d for osteomyelitis and chronic abscess done by Dr. Sales on 02/05/2017. Wound cultures are growi ng gram-variable rods. Blood cultures x2 no growth. Hemoglobin and hematocrit are 9 and 27, sedime ntation rate was 120. CRP 4.46. DISCHARGE MEDICATIONS: Humulin 70/30 of 20 units subcu q.p.m. and 25 units subcu q.a.m., Florastor 250 mg p.o. daily, ciprofloxacin 500 mg p.o. twice daily for 1 month, Coreg 3.125 mg p.o. twice demetrius y, Augmentin 875 mg p.o. twice daily for 30 days. ALLERGIES: No known drug allergies. DISCHARGE PLAN: Patient to follow up with Dr. Sales in 2 weeks and primary care physician in 1 we ek. BRIEF COURSE DURING HOSPITALIZATION: The patient initially got admitted on for complaints of l eft foot pain and swelling with ulceration. She has had prior debridement on the same foot before. On arrival, patient had blood pressure of 73/51 and was essentially admitted for sepsis with ulcera tion of the left great toe. She has had consultation with Dr. Sales. The patient has had an ampu tation of the first great toe metatarsal done for osteomyelitis, which was confirmed with x-ray. Po stop, her wound was placed in wound VAC. She was on IV antibiotics all through her stay. She has h ad consultation with Dr. Nolasco. She has been advised to continue Augmentin and Cipro per Dr. Nolasco for a period of 30 days. Please note patient needs a weekly metabolic panel to be done as long as s he is on antibiotics and this needs to be faxed to primary care physician's office and Dr. Nolasco' of [facility]. Her outpatient wound VAC has been approved. She is hemodynamically stable and will be shortl y discharged home. Please see a face to face documentation on [facility] for the day of discharge.
== END 2017-02-10 18:20 | disposition home or self-care (01) | DRG 854 ==
LOC: ERS 12:52 → T4-B 14:15
PROVIDERS: ADMIT Internal Medicine; ATTEND Internal Medicine
PROC: 0Y6Q0Z0 Detachment at Left 1st Toe, Complete, Open Approach (ICD-10-PCS; principal; 2017-02-05)
DX: A41.9 Sepsis, unspecified organism (principal); M86.172 Other acute osteomyelitis, left ankle and foot; E11.621 Type 2 diabetes mellitus with foot ulcer; E11.42 Type 2 diabetes mellitus with diabetic polyneuropathy; L03.116 Cellulitis of left lower limb; E11.69 Type 2 diabetes mellitus with other specified complication; L97.529 Non-pressure chronic ulcer of other part of left foot with unspecified severity; I10 Essential (primary) hypertension; D64.9 Anemia, unspecified; E78.5 Hyperlipidemia, unspecified; Z89.421 Acquired absence of other right toe(s); Z79.82 Long term (current) use of aspirin; Z79.4 Long term (current) use of insulin; B95.2 Enterococcus as the cause of diseases classified elsewhere
CPT/HCPCS: 36415; 36416; 80048; 80053; 80202; 83605; 85025; 85652; 86140; 87040; 87070; 87205; 88305; 88311; 90471; 90682; 96365; 96367; G0008; G8978-GP-CM; G8979-GP-CK; J0360; J1100; J1650; J2001; J2185; J2405; J2704; J3010; J3370; J3490; J7050; Q2036

== ENCOUNTER 2017-02-12 13:08 | Outpatient (CLI) | payer MEDICAID, OTHER, SELFPAY ==
[2017-02-12] MEDS ORDERED: Sodium Chloride 0.9% 15 ML NEB ONE (14:50)
== END 2017-02-12 13:09 | disposition home or self-care (01) ==
LOC: WCC 13:08
PROVIDERS: ATTEND Podiatrist Foot & Ankle Surgery
DX: T87.89 Other complications of amputation stump (principal); Z89.412 Acquired absence of left great toe
CPT/HCPCS: 36416; 97605; A4218

== ENCOUNTER 2017-02-14 13:55 | Outpatient (CLI) | payer MEDICAID | END 2017-02-14 13:56 | disposition home or self-care (01) | LOC: WCC 13:55 | PROVIDERS: ATTEND Podiatrist Foot & Ankle Surgery | DX: T81.89XD Other complications of procedures, not elsewhere classified, subsequent encounter (principal); Z89.412 Acquired absence of left great toe | CPT/HCPCS: 97605 ==

== ENCOUNTER 2017-02-16 08:50 | Outpatient (CLI) | payer MEDICAID ==
--- NOTE | 2017-02-16 10:14 | PRG ---
DATE OF SERVICE: 02/16/2017 CHIEF COMPLAINT: Postoperative left great toe amputation. HISTORY OF PRESENT ILLNESS: This 67-year-old female returns today stating she had her left great to e amputated eight days ago after developing osteomyelitis and abscess on this foot. The wound VAC w as placed in the operating room, and she has been having 3 times a week VAC changes at 125 mmHg, con tinuous therapy since that time. Denies any problems at this time. She states she is neuropathic a nd has no pain. PAST MEDICAL HISTORY: 1. Hypertension. 2. Cerebrovascular accident. 3. Diabetes x13 years. 4. Chronic anemia. PAST SURGICAL HISTORY: 1. Left great toe amputation 8 days ago. 2. Left heel surgery 6 years ago for a foreign body removal. 3. Right foot second digit amputation due to infection. MEDICATIONS, ALLERGIES, FAMILY HISTORY, AND SOCIAL HISTORY: See the paper chart. REVIEW OF SYSTEMS: Constitutional: Denies nausea, vomiting, fevers, or chills. Neurological: Rel ates lack of sensation in bilateral lower extremities. No burning or tingling sensations at this ti me. Cardiovascular: Denies cramping in the legs with activity. So, no claudication symptoms. PHYSICAL EXAMINATION: VASCULAR: Dorsalis pedis and posterior tibial pulses are likely palpable bilaterally with immediate capillary fill time to the distal aspect of the toes, negative edema. NEUROLOGIC: Light touch and protective sensation is absent to the foot bilaterally with 10 gram mon ofilament testing. DERMATOLOGICAL EXAM: Left great toe amputation site has the centrally located ulceration, measuring 2.1 cm x 1.1 cm x 1.9 cm depth. It has 100% granular wound base. No periwound hyperkeratosis. No erythema, edema, or warmth and mild serous drainage, the distal and proximal aspects of the incisio n site has sutures intact with no dehiscence or necrosis. ASSESSMENT: 1. Diabetes with peripheral neuropathy and lack of protective sensation. 2. Status post left great toe amputation. 3. Non-pressure chronic ulceration to left great toe amputation site with fat layer exposed. PLAN: 1. We are going to continue with wound VAC changes 3 times a week at 125 mmHg to facilitate filling in of this wound base. 2. Sutures were removed from the distal and proximal portion of the incision with no dehiscence not ed. 3. The patient will follow up with me in 2 weeks for reevaluation and routine debridement.
[2017-02-16] MEDS ORDERED: Sodium Chloride 0.9% 15 ML NEB ONE (17:30)
== END 2017-02-16 08:51 | disposition home or self-care (01) ==
LOC: WCC 08:50
PROVIDERS: ATTEND Podiatrist Foot & Ankle Surgery
DX: T81.89XD Other complications of procedures, not elsewhere classified, subsequent encounter (principal); E11.42 Type 2 diabetes mellitus with diabetic polyneuropathy; Z89.412 Acquired absence of left great toe
CPT/HCPCS: 11042; 99203; A4218; G0463

== ENCOUNTER 2017-02-22 09:20 | Outpatient (CLI) | payer MEDICAID ==
[2017-02-22] MEDS ORDERED: Sodium Chloride 0.9% 15 ML NEB ONE (16:56)
== END 2017-02-22 09:21 | disposition home or self-care (01) ==
LOC: WCC 09:20
PROVIDERS: ATTEND Podiatrist Foot & Ankle Surgery
DX: T81.89XD Other complications of procedures, not elsewhere classified, subsequent encounter (principal)
CPT/HCPCS: 97605; A4218

== ENCOUNTER 2017-02-26 10:38 | Outpatient (CLI) | payer MEDICAID, OTHER, SELFPAY | END 2017-02-26 10:39 | disposition home or self-care (01) | LOC: WCC 10:38 | PROVIDERS: ATTEND Podiatrist Foot & Ankle Surgery | DX: T87.89 Other complications of amputation stump (principal); Z89.412 Acquired absence of left great toe | CPT/HCPCS: 97606 ==

== ENCOUNTER 2017-02-28 09:59 | Outpatient (CLI) | payer MEDICAID, OTHER, SELFPAY ==
[2017-02-28] MEDS ORDERED: Lidocaine 2% Jelly 5 ML TUBE ONE (17:26)
[2017-02-28] MEDS ORDERED: Sodium Chloride 0.9% 15 ML NEB ONE (17:26)
== END 2017-02-28 10:00 | disposition home or self-care (01) ==
LOC: WCC 09:59
PROVIDERS: ATTEND Podiatrist Foot & Ankle Surgery
DX: T81.89XD Other complications of procedures, not elsewhere classified, subsequent encounter (principal); Z89.412 Acquired absence of left great toe
CPT/HCPCS: 36416; 97605; A4218

== ENCOUNTER 2017-03-02 10:05 | Outpatient (CLI) | payer MEDICAID, OTHER, SELFPAY ==
[2017-03-02] MEDS ORDERED: Sodium Chloride 0.9% 15 ML NEB ONE (17:14)
--- NOTE | 2017-03-02 21:54 | PRG ---
DATE OF SERVICE: 03/02/2017 SUBJECTIVE: A 67-year-old female returns today for followup left great toe amputation with persistent wound. She has been getting wound VAC changes 3 times a week at 125 mmHg, continuous therapy and has been doing well since her last visit. REVIEW OF SYSTEMS: Constitutional: Denies nausea, vomiting, fevers or chills. OBJECTIVE: Ulceration to the left great toe has decreased significantly in size 1.5 cm x 1.0 cm x 0.7 cm of depth. The depth has been filling and nicely there is 100% granular wound base. No periwound erythema or edema. Wound does not probe to bone. No malodor or other signs of bacterial infection. ASSESSMENT: 1. Non-pressure chronic ulceration to left great toe, status post left great toe amputation. 2. Diabetic with peripheral neuropathy. PLAN: The wound base was not requiring debridement today. The patient has tolerated the wound VAC well. We are going to continue with the therapy to continue to fill in the deficits. She will get the black granulofoam, 125 mm continuous therapy with 3x a week changes. She will follow up with me in 1 week. MOOK
== END 2017-03-02 10:06 | disposition home or self-care (01) ==
LOC: WCC 10:05
PROVIDERS: ATTEND Podiatrist Foot & Ankle Surgery
DX: E11.621 Type 2 diabetes mellitus with foot ulcer (principal); L97.529 Non-pressure chronic ulcer of other part of left foot with unspecified severity; E11.40 Type 2 diabetes mellitus with diabetic neuropathy, unspecified; Z89.412 Acquired absence of left great toe
CPT/HCPCS: 97605; A4218

== ENCOUNTER 2017-03-07 10:45 | Outpatient (CLI) | payer MEDICAID, OTHER, SELFPAY ==
[2017-03-07] MEDS ORDERED: Sodium Chloride 0.9% 15 ML NEB ONE (17:22)
== END 2017-03-07 10:46 | disposition home or self-care (01) ==
LOC: WCC 10:45
PROVIDERS: ATTEND Podiatrist Foot & Ankle Surgery
DX: T81.89XD Other complications of procedures, not elsewhere classified, subsequent encounter (principal); Z89.412 Acquired absence of left great toe
CPT/HCPCS: 97605; A4218

== ENCOUNTER 2017-03-09 10:27 | Outpatient (CLI) | payer MEDICAID, OTHER, SELFPAY ==
--- NOTE | 2017-03-09 11:10 | PRG ---
DATE OF SERVICE: 03/09/2017 SUBJECTIVE: This is a 67-year-old female returns today for followup left foot ulcerations, status p ost great toe amputation. She has been getting Sunday, Sunday, Sunday wound VAC changes, doing c ontinuous therapy at 125 mmHg. No concerns at this time. PHYSICAL EXAM: There is now 2 wounds present, the proximal wound is measuring 1.8 cm x 1.2 cm x 0.9 cm of depth with some tunneling at 6 o'clock about 0.7 cm in depth. The second wound is distal to the first, measures 1.9 cm x 0.4 cm x 0.6 cm of depth. Both wounds have 100% granular wound base, d oes not probe to bone. No purulent drainage, no periwound erythema, edema, or warmth or other signs of infection. ASSESSMENT: Non-pressure chronic ulceration to the left foot, status post great toe amputation, doi ng well with VAC therapy. PLAN: 1. We will reapply the VAC today and she will continue with Sunday, Sunday, Sunday VAC changes. 2. Full thickness debridement of both wounds was performed today utilizing a dermal curet of the martell bcutaneous tissue layer removing all nonviable tissue, biofilm down to a bleeding wound base. 3. The patient will follow up with me in 1 week.
[2017-03-09] MEDS ORDERED: Sodium Chloride 0.9% 15 ML NEB ONE (17:08)
== END 2017-03-09 10:28 | disposition home or self-care (01) ==
LOC: WCC 10:27
PROVIDERS: ATTEND Podiatrist Foot & Ankle Surgery
DX: L97.529 Non-pressure chronic ulcer of other part of left foot with unspecified severity (principal); Z89.412 Acquired absence of left great toe
CPT/HCPCS: 11042; A4218

== ENCOUNTER 2017-03-14 10:55 | Outpatient (CLI) | payer OTHER, SELFPAY | END 2017-03-14 10:56 | disposition home or self-care (01) | LOC: WCC 10:55 | PROVIDERS: ATTEND Podiatrist Foot & Ankle Surgery | DX: T81.89XD Other complications of procedures, not elsewhere classified, subsequent encounter (principal); Z89.412 Acquired absence of left great toe | CPT/HCPCS: 97606 ==

== ENCOUNTER 2017-03-16 09:05 | Outpatient (CLI) | payer SELFPAY ==
[2017-03-16] MEDS ORDERED: Sodium Chloride 0.9% 15 ML NEB ONE (10:58)
--- NOTE | 2017-03-16 12:29 | PRG ---
DATE OF SERVICE: 03/16/2017 SUBJECTIVE: A 67-year-old female returns today for followup of wound in left foot, status post grea t toe amputation. She has been getting wound VAC changes 3 times a week, doing okay with the VAC scar diaz. Although, it was noted today when the VAC was removed, the foam was just placed superficiall y, not packed into the wound. Denies nausea, vomiting, fevers or chills. PHYSICAL EXAMINATION: Ulceration proximal wound measuring 1.5 cm x 0.6 cm, did find an area of appr oximately 2 cm tracking deep which does probe to bone. The remaining of the wound is 100% granular, no periwound erythema, edema, or warmth, no drainage. Second wound is just distal to the first paulino sures 0.9 cm x 0.3 cm and has 0.3 cm of depth, it has 100% granular wound base. No periwound erythe ma, edema or warmth. ASSESSMENT: 1. Ulceration to the left foot, status post left great toe amputation, which was left to [facility]. 2. Diabetes with peripheral neuropathy. PLAN: 1. Full thickness debridement of the subcutaneous tissue layer removing all the nonviable tissue an d biofilm from the wound base down to a bleeding granular wound base. 2. We are going to continue with VAC changes paying special attention to pack the depth of the woun d with the foam. She will get 3 times a week VAC changes at 125 mmHg, continuous therapy. She will follow up with me in 1 week.
== END 2017-03-16 09:06 | disposition home or self-care (01) ==
LOC: WCC 09:05
PROVIDERS: ATTEND Podiatrist Foot & Ankle Surgery
DX: T81.89XD Other complications of procedures, not elsewhere classified, subsequent encounter (principal); E11.42 Type 2 diabetes mellitus with diabetic polyneuropathy; Z89.412 Acquired absence of left great toe
CPT/HCPCS: 11042; A4218

== ENCOUNTER 2017-03-19 10:43 | Outpatient (CLI) | payer OTHER, SELFPAY ==
[2017-03-19] MEDS ORDERED: Sodium Chloride 0.9% 15 ML NEB ONE (22:48)
== END 2017-03-19 10:44 | disposition home or self-care (01) ==
LOC: WCC 10:43
PROVIDERS: ATTEND Podiatrist Foot & Ankle Surgery
DX: T87.89 Other complications of amputation stump (principal); Z89.411 Acquired absence of right great toe; Z89.421 Acquired absence of other right toe(s)
CPT/HCPCS: 97605; A4218

== ENCOUNTER 2017-03-21 14:37 | Outpatient (CLI) | payer OTHER, SELFPAY ==
[~2017-03-21 14:37] MED LIST: Sodium Chloride 0.9% 15 ML NEB ONE
== END 2017-03-21 14:38 | disposition home or self-care (01) ==
LOC: WCC 14:37
PROVIDERS: ATTEND Podiatrist Foot & Ankle Surgery
DX: T81.89XD Other complications of procedures, not elsewhere classified, subsequent encounter (principal); Z89.412 Acquired absence of left great toe
CPT/HCPCS: 97605; A4218

== ENCOUNTER 2017-03-23 09:45 | Outpatient (CLI) | payer SELFPAY ==
--- NOTE | 2017-03-23 11:05 | PRG ---
DATE OF SERVICE: 03/23/2017 SUBJECTIVE: This is a 67-year-old female returns today for followup left great toe amputation site w ound. She has been getting wound VAC changes 3 times a week at 125 mmHg, continuous therapy, has bee n doing well. Denies any nausea, vomiting, fevers or chills. PHYSICAL EXAMINATION: Ulceration left great toe amputation stump proximal wound measuring 1 cm x 0.4 cm x 0.2 cm of depth. There is some tunneling to the wound going about 0.8 cm. No longer probing t o bone. Second wound just distal to the first measures 0.2 cm x 0.2 cm x 0.2 cm of depth, 100% granu lar tissue to both wounds no periwound erythema, edema, or warmth, no increased drainage. No malodor or excessive drainage. ASSESSMENT: 1. Non-pressure chronic ulcerations to the left great toe stump site, status post left great toe amp utation. 2. Diabetes with peripheral neuropathy. PLAN: 1. Full thickness debridement of the subcutaneous tissue layer removing all biofilm nonviable tissue within the wound base with dermal curet. The patient tolerated the procedure well. 2. We will continue with wound VAC dressing changes and packing the tunneling sites. Wound VAC will be set at 125 mmHg, continuous therapy and change 3 times a week. She will follow up with me in 2 w eeks.
[2017-03-23] MEDS ORDERED: Sodium Chloride 0.9% 15 ML NEB ONE (14:54)
== END 2017-03-23 09:46 | disposition home or self-care (01) ==
LOC: WCC 09:45
PROVIDERS: ATTEND Podiatrist Foot & Ankle Surgery
DX: E11.621 Type 2 diabetes mellitus with foot ulcer (principal); L97.529 Non-pressure chronic ulcer of other part of left foot with unspecified severity; E11.42 Type 2 diabetes mellitus with diabetic polyneuropathy; Z89.412 Acquired absence of left great toe
CPT/HCPCS: A4218

== ENCOUNTER 2017-03-26 09:05 | Outpatient (CLI) | payer OTHER, SELFPAY | END 2017-03-26 09:06 | disposition home or self-care (01) | LOC: WCC 09:05 | PROVIDERS: ATTEND Family Medicine | DX: T81.89XD Other complications of procedures, not elsewhere classified, subsequent encounter (principal); S91.102D Unspecified open wound of left great toe without damage to nail, subsequent encounter | CPT/HCPCS: 97605 ==

== ENCOUNTER 2017-03-28 08:33 | Outpatient (CLI) | payer OTHER, SELFPAY ==
[2017-03-28] MEDS ORDERED: Sodium Chloride 0.9% 15 ML NEB ONE (17:43)
== END 2017-03-28 08:34 | disposition home or self-care (01) ==
LOC: WCC 08:33
PROVIDERS: ATTEND Podiatrist Foot & Ankle Surgery
DX: T87.9 Unspecified complications of amputation stump (principal)
CPT/HCPCS: 97605; A4218

== ENCOUNTER 2017-04-06 10:07 | Outpatient (CLI) | payer OTHER, SELFPAY ==
--- NOTE | 2017-04-07 10:45 | PRG ---
DATE OF SERVICE: 04/06/2017 SUBJECTIVE: A 67-year-old patient returns today for followup on left foot wound status post great to e amputation. She has been getting wound VAC changed 3 times a week. Wound VAC set at 125 mmHg, con tinuous therapy, has done well with this. Denies any nausea, vomiting, fevers or chills. OBJECTIVE: Ulceration to the left great toe amputation site, just only the proximal wound remains, i t measures 0.3 cm x 0.4 cm x 1.5 cm of depth. There is a tunnel which extends towards the plantar martell rface of the wound. There is no longer tunnel extending into the interior of foot or probing to bone as it had on previous appointments. The wound base has 100% granular, no periwound erythema, edema or warmth. ASSESSMENT: Non-pressure chronic ulceration to the left foot, status post left great toe amputation. PLAN: 1. Full thickness debridement of the wound site with dermal curet removing nonviable tissue and biof ilm from the wound down under bleeding granular wound base. 2. We are going to continue with the wound VAC changes, packing the foam into the tunneled site help to fill this in. We will continue with 125 mmHg, continuous therapy. She will get 3 times a week darlin ruiz and follow up with me in 1 week.
== END 2017-04-06 10:08 | disposition home or self-care (01) ==
LOC: WCC 10:07
PROVIDERS: ATTEND Podiatrist Foot & Ankle Surgery
DX: T81.89XD Other complications of procedures, not elsewhere classified, subsequent encounter (principal); Z89.412 Acquired absence of left great toe
CPT/HCPCS: 11042; 36416

== ENCOUNTER 2017-04-16 10:37 | Outpatient (CLI) | payer OTHER ==
[2017-04-16] MEDS ORDERED: Sodium Chloride 0.9% 15 ML NEB ONE (17:04)
== END 2017-04-16 10:38 | disposition home or self-care (01) ==
LOC: WCC 10:37
PROVIDERS: ATTEND Podiatrist Foot & Ankle Surgery
DX: T81.89XD Other complications of procedures, not elsewhere classified, subsequent encounter (principal); Z89.412 Acquired absence of left great toe
CPT/HCPCS: 36416; 97605; A4218

== ENCOUNTER 2017-04-18 10:37 | Outpatient (CLI) | payer OTHER ==
[2017-04-18] MEDS ORDERED: Sodium Chloride 0.9% 15 ML NEB ONE (10:51)
== END 2017-04-18 10:38 | disposition home or self-care (01) ==
LOC: WCC 10:37
PROVIDERS: ATTEND Podiatrist Foot & Ankle Surgery
DX: T87.89 Other complications of amputation stump (principal); Z89.412 Acquired absence of left great toe
CPT/HCPCS: 97605; A4218

== ENCOUNTER 2017-04-18 11:06 | Outpatient (CLI) | payer OTHER ==
--- NOTE | 2017-04-13 12:22 | PRG ---
DATE OF SERVICE: 04/13/2017 SUBJECTIVE: This is a 67-year-old female returns today for followup left medial foot ulcerations sta tus post first ray amputation. She continues to have wound VAC changes at 125 mm continuous therapy. Denies any problems at this time. PHYSICAL EXAMINATION: Ulceration to the left medial forefoot measuring 0.5 cm x 0.3 cm. There is 2 cm of depth undermining plantarly distally and deep into the foot that remains as space in this area. No periwound erythema, edema, or warmth, no increased drainage. ASSESSMENT: Non-pressure chronic ulceration to left foot, status post a left partial first ray amput ation. PLAN: Would are going to change the wound VAC to a white foam dressing and try to fill in the s pace area to get this to granulate and fill in. We are switching to 150 mmHg, continuous therapy on the negative pressure and she will follow up for 3 times a week dressing changes and follow up with federico soria in 1 week.
== END 2017-04-18 11:07 | disposition home or self-care (01) ==
LOC: WCC 11:06
PROVIDERS: ATTEND Podiatrist Foot & Ankle Surgery
DX: T81.89XD Other complications of procedures, not elsewhere classified, subsequent encounter (principal); Z89.432 Acquired absence of left foot
CPT/HCPCS: 36416; 97605; A4218

== ENCOUNTER 2017-04-20 10:14 | Outpatient (CLI) | payer OTHER ==
--- NOTE | 2017-04-20 12:23 | PRG ---
DATE OF SERVICE: 04/20/2017 SUBJECTIVE: This is a 67-year-old female returns for followup left foot ulcerations, status post partial first ray amputation. The patient has done well with the wound VAC changes over the last week, getting a continuous therapy at 150 mmHg with white foam dressing over it this last week. PHYSICAL EXAMINATION: Ulceration remains 0.4 cm x 0.3 cm. There approximately 3 cm of undermining of the wound base, although it does feel like it has filled in marginally since the last visit. ASSESSMENT: Non-pressure chronic ulceration left foot with significant undermining and tunneling with some improvement over the last week. PLAN: Full thickness debridement of the subcutaneous tissue layers and undermining area with dermal curet removing all nonviable tissue. Will put the Wound vac back on with the white foam into the tunneled areas, continuous therapy at 150 mmHg and negative pressure. She will have dressing 3 x week changes and she will follow up with me in 2 weeks. MOOK
[2017-04-20] MEDS ORDERED: Sodium Chloride 0.9% 15 ML NEB ONE (17:53)
== END 2017-04-20 10:15 | disposition home or self-care (01) ==
LOC: WCC 10:14
PROVIDERS: ATTEND Podiatrist Foot & Ankle Surgery
DX: T81.89XD Other complications of procedures, not elsewhere classified, subsequent encounter (principal)
CPT/HCPCS: 11042; 36416; A4218

== ENCOUNTER 2017-04-23 10:25 | Outpatient (CLI) | payer OTHER ==
[2017-04-23] MEDS ORDERED: Sodium Chloride 0.9% 15 ML NEB ONE (17:04)
== END 2017-04-23 10:26 | disposition home or self-care (01) ==
LOC: WCC 10:25
PROVIDERS: ATTEND Podiatrist Foot & Ankle Surgery
DX: T87.89 Other complications of amputation stump (principal); Z89.412 Acquired absence of left great toe
CPT/HCPCS: 36416; 97605; A4218

== ENCOUNTER 2017-04-26 11:19 | Outpatient (CLI) | payer OTHER | END 2017-04-26 11:20 | disposition home or self-care (01) | LOC: WCC 11:19 | PROVIDERS: ATTEND Podiatrist Foot & Ankle Surgery | DX: T81.89XD Other complications of procedures, not elsewhere classified, subsequent encounter (principal); Z89.412 Acquired absence of left great toe | CPT/HCPCS: 36416; 97605 ==

== ENCOUNTER 2017-05-01 09:56 | Outpatient (CLI) | payer OTHER ==
[2017-05-01] MEDS ORDERED: Sodium Chloride 0.9% 15 ML NEB ONE (14:37)
== END 2017-05-01 09:57 | disposition home or self-care (01) ==
LOC: WCC 09:56
PROVIDERS: ATTEND Podiatrist Foot & Ankle Surgery
DX: T81.89XD Other complications of procedures, not elsewhere classified, subsequent encounter (principal)
CPT/HCPCS: 36416; 97605; A4218

== ENCOUNTER 2017-05-04 09:58 | Outpatient (CLI) | payer OTHER ==
--- NOTE | 2017-05-04 12:39 | PRG ---
DATE OF SERVICE: 05/04/2017 SUBJECTIVE: This is a 67-year-old female returns today for followup of ulceration status post left f irst ray amputation. She has been getting wound VAC dressing changes to the left foot and continues to have the wound care with some undermining, although she denies any problems with the VAC since las t visit. PHYSICAL EXAMINATION: Ulceration measures 0.3 cm x 0.2 cm in diameter. There is 1.6 cm of depth to the wound, this appears to be a filled in from the last appointment 100% granular wound base. ASSESSMENT: Non-pressure chronic ulceration to the left first ray amputation site appears to be impr oving in depth with wound VAC changes. PLAN: 1. Continue with wound VAC in white foam packing. 2. Full thickness debridement of the subcutaneous tissues with the dermal curette removing all nonvi able tissue and biofilm. Patient tolerated the procedure well. We will continue with [id number]-week dressing changes and she will follow up with me in 1 week.
[2017-05-04] MEDS ORDERED: Sodium Chloride 0.9% 15 ML NEB ONE (13:31)
== END 2017-05-04 09:59 | disposition home or self-care (01) ==
LOC: WCC 09:58
PROVIDERS: ATTEND Podiatrist Foot & Ankle Surgery
DX: T87.89 Other complications of amputation stump (principal)
CPT/HCPCS: 11042; 36416; A4218

== ENCOUNTER 2017-05-08 09:52 | Outpatient (CLI) | payer OTHER | END 2017-05-08 09:53 | disposition home or self-care (01) | LOC: WCC 09:52 | PROVIDERS: ATTEND Podiatrist Foot & Ankle Surgery | DX: T87.89 Other complications of amputation stump (principal); Z89.412 Acquired absence of left great toe | CPT/HCPCS: 36416; 97605 ==

== ENCOUNTER 2017-05-11 11:33 | Outpatient (CLI) | payer OTHER ==
--- NOTE | 2017-05-11 12:41 | PRG ---
DATE OF SERVICE: 05/11/2017 SUBJECTIVE: A 67-year-old female returns today status post left partial first ray amputation had bee n getting wound VAC changes on a daily basis, had large deficits in the wound, which is filled in wel l with the wound VAC. Denies any problems at this time. Denies nausea, vomiting, fevers or chills. OBJECTIVE: Ulceration measures 0.2 x 0.2 cm with a depth of 0.2 cm at this time. No underlying pres sure now, just appears to be a very small dehisced area of the incision. No periwound erythema, geraldine a or warmth. ASSESSMENT: Status post left partial first ray amputation with dehisced wound, greatly improved. PLAN: Today, the wound edges were made acute with 15 blade and then with single horizontal mattress, 3-0 nylon stitch was placed to close the wound site. Bandage will be applied and left in place for 2 weeks and then removal of the stitch. The patient is to keep the dressing clean, dry and intact un til follow up in 2 weeks.
== END 2017-05-11 11:34 | disposition home or self-care (01) ==
LOC: WCC 11:33
PROVIDERS: ATTEND Podiatrist Foot & Ankle Surgery
DX: T81.30XD Disruption of wound, unspecified, subsequent encounter (principal); Z89.422 Acquired absence of other left toe(s)
CPT/HCPCS: 11042; 36416

== ENCOUNTER 2017-05-25 10:45 | Outpatient (CLI) | payer OTHER ==
--- NOTE | 2017-05-25 14:04 | PRG ---
DATE OF SERVICE: 05/25/2017 SUBJECTIVE: This is a 67-year-old female return today for her left foot wound status post partial fi fth ray amputation, had stitched placed 2 weeks ago and has done well since that time. Denies nausea , vomiting, fevers or chills. ASSESSMENT: Stitches pull-through the skin. There is still a small ulceration present 0.4 x 0.2 cm with 0.3 cm of depth, granular wound base. No periwound erythema, edema or warmth. ASSESSMENT: Non-pressure chronic ulceration, status post partial fifth ray amputation, left foot. PLAN: Full thickness debridement of the subcutaneous tissue layer down to a bleeding granular wound base. I am going to pack this wound with Promogran and cover with MediPort dressing and may start we aring regular shoe and using her cane instead of the walker. Follow up with me in 1 week.
== END 2017-05-25 10:46 | disposition home or self-care (01) ==
LOC: WCC 10:45
PROVIDERS: ATTEND Podiatrist Foot & Ankle Surgery
DX: L97.529 Non-pressure chronic ulcer of other part of left foot with unspecified severity (principal); Z89.422 Acquired absence of other left toe(s)
CPT/HCPCS: 11042

== ENCOUNTER 2017-06-01 12:33 | Outpatient (CLI) | payer OTHER ==
--- NOTE | 2017-06-01 11:54 | PRG ---
DATE OF SERVICE: 06/01/2017 SUBJECTIVE: A 67-year-old female returns today status post left partial first ray amputation with co ntinued wound. The amputation site is doing well since last visit. No nausea, vomiting, fevers or c hills. PHYSICAL EXAMINATION: Ulceration is almost healed, measures 0.1 cm x 0.1 cm with no depth. Too smal l to evaluate for any wound base, slough or granular tissue. No periwound erythema, edema, or warmth . No drainage. No malodor. ASSESSMENT: 1. Non-pressure chronic ulceration status post left first ray amputation, essentially healed. 2. Diabetes with peripheral neuropathy. PLAN: We will just do a dry bandage on this area. I expect it will completely heel in the next week or so. We will have her back in 2 weeks for reevaluation.
== END 2017-06-01 12:34 | disposition home or self-care (01) ==
LOC: WCC 12:33
PROVIDERS: ATTEND Podiatrist Foot & Ankle Surgery
DX: T81.89XD Other complications of procedures, not elsewhere classified, subsequent encounter (principal); L97.529 Non-pressure chronic ulcer of other part of left foot with unspecified severity; E11.42 Type 2 diabetes mellitus with diabetic polyneuropathy
CPT/HCPCS: 36416

== ENCOUNTER 2017-06-15 11:07 | Outpatient (CLI) | payer OTHER ==
--- NOTE | 2017-06-15 11:33 | PRG ---
DATE OF SERVICE: 06/15/2017 SUBJECTIVE: A 67-year-old female returns today for followup wound to the left great toe, status post left partial first ray amputation. Doing well, does not think the wound is opened any longer. Arsh es nausea, vomiting, fevers or chills. PHYSICAL EXAMINATION: Evaluation of the wound site notes that the wound is closed. No drainage, no opening apparent, no erythema, edema or warmth to the foot. ASSESSMENT: 1. Non-pressure chronic ulceration to left great toe, status post first ray amputation has healed. 2. Diabetes with peripheral neuropathy. PLAN: Discussed with patient transitioning back into regular shoes, evaluating the shoes to make felix e they are not rubbing any areas. Moisturize the wound site and return if she has any other concerns .
[2017-06-15] MEDS ORDERED: Sodium Chloride 0.9% 15 ML NEB ONE (16:35)
== END 2017-06-15 11:08 | disposition home or self-care (01) ==
LOC: WCC 11:07
PROVIDERS: ATTEND Podiatrist Foot & Ankle Surgery
DX: E11.621 Type 2 diabetes mellitus with foot ulcer (principal); L97.529 Non-pressure chronic ulcer of other part of left foot with unspecified severity; E13.42 Other specified diabetes mellitus with diabetic polyneuropathy
CPT/HCPCS: 36416; A4218

== ENCOUNTER 2017-09-25 17:53 | Inpatient (IN) | payer OTHER, SELFPAY ==
[2017-09-25] MEDS ORDERED: Acetaminophen 500 MG TAB ONE (18:14)
[2017-09-25 18:36] LABS: #Lymphocytes 0.6 thou/uL (1.20-3.40); #Monocytes 0.6 thou/uL (0.11-0.59); #Neutrophils 7.6 thou/uL (1.40-6.50); %Basophils 0.4 % (0.0-1.0); %Eosinophils 0.3 % (0.0-10.0); %Lymphocytes 6.5 % (21.0-51.0); %Monocytes 6.8 % (0.0-10.0); Hemoglobin 11.5 g/dL (12.0-16.0); Mean Corpuscular HGB CONC 35.3 g/dL (32.0-36.0); Mean Corpuscular Hemoglobin 31.4 pg (27.0-31.0); Mean Platelet Volume 8.8 fL (7.4-10.4); Platelet Count 195 thou/uL (130-400); RBC Distribution Width 11.2 % (11.5-14.5); Red Blood Cell (RBC) Count 3.65 mill/uL (4.20-5.40); White Blood Cell (WBC) Count 8.8 thou/uL (4.8-10.8)
[2017-09-25 18:58] LABS: ALT (SGPT) 24 U/L (8-55); AST (SGOT) 35 U/L (5-34); Albumin 3.9 g/dL (3.4-4.8); Alkaline Phosphatase 128 U/L (40-150); Anion Gap 13 mmol/L (10-20); BUN (Urea Nitrogen) 23 mg/dL (9.8-20.1); Bilirubin, Total 0.3 mg/dL (0.2-1.2); Calc. Creatinine Clearance 0 mL/min (70-130); Calcium 9.1 mg/dL (7.8-10.44); Carbon Dioxide 23 mmol/L (23-31); Chloride 103 mmol/L (98-107); Estimated GFR-MDRD 65; Globulin 3.6 g/dL (2.4-3.5); Glucose 116 mg/dL (80-115); Potassium 4.3 mmol/L (3.5-5.1); Protein, Total 7.5 g/dL (6.0-8.3); Sodium 135 mmol/L (136-145)
[2017-09-25 22:13] LABS: Bilirubin Small (Negative); Blood, Urine Large (Negative); Clarity TURBID (Clear); Glucose, Urine (Dipstick) Negative (Negative); Leukocyte Large (Negative); Nitrite Negative (Negative); Protein, Urine (Dipstick) 30 mg/dL (Neg-Trace); Specific Gravity, Urine 1.022 (1.002-1.036); pH, Urine 5.5 (5.0-9.0)
[2017-09-25 22:16] LABS: Bacteria/HPF 4+ HPF (None Seen); Pathc Cast-AUWi Flag 4.07 (0-2.49); RBC/HPF 21-50 HPF (0-3)
--- NOTE | 2017-09-25 22:20 | RAD ---
PORTABLE CHEST: 09/25/2017 PROVIDED CLINICAL HISTORY: Fever. Sepsis. COMPARISON: 12/29/2016 FINDINGS: The cardiac and mediastinal silhouette are unchanged in appearance. No evidence for lobar consolidat ion, pleural fluid, or pneumothorax. Vascular calcification involves the aortic arch. Emphysematous changes are suspected. There are patchy bilateral lower lung zone parenchymal densities that may re flect subsegmental atelectasis or infiltrate. IMPRESSION: Patchy bibasilar parenchymal opacity may reflect subsegmental atelectasis, less likely infiltrate. C onsider followup. POS: [facility]
[2017-09-25 22:23] LABS: Hyaline Casts/LPF 4-6 HYALINE CAST LPF (0-3 Hyaline)
[2017-09-25 22:30] LABS: Other Microscopic Description Less than 2 mL rec'd
[2017-09-25] MEDS ORDERED: cefTRIAXone\\ROCEPHIN 2 GM VIAL ONE (22:47)
[2017-09-26] MEDS ORDERED: Ondansetron ODT 4 MG TAB SL PRN (00:47)
[2017-09-26] MEDS ORDERED: Ondansetron HCl/PF 4 MG/2 ML Vial IVP PRN ×2 (00:47→07:07)
[2017-09-26] MEDS ORDERED: Sodium Chloride 0.9% 1,000 ML IV SCH (00:47)
[2017-09-26] MEDS ORDERED: Acetaminophen 325 MG TAB PO PRN (00:47)
[2017-09-26 02:10] VITALS: BMI 26.5
[2017-09-26] MEDS ORDERED: Loperamide HCl 2 MG CAP PO PRN (07:07)
[2017-09-26] MEDS ORDERED: Eucerin (Mineral Oil/Petrolatum,White) 30 gm Jar TOP PRN (07:07)
[2017-09-26] MEDS ORDERED: Ondansetron ODT 4 MG TAB PO PRN (07:07)
[2017-09-26] MEDS ORDERED: Dextrose 50% Abboject 50 ML SYRINGE SLOW IVP PRN (07:07)
[2017-09-26] MEDS ORDERED: Sodium Chloride 0.65% Nasal 44 ML BOT EA NARE PRN (07:07)
[2017-09-26] MEDS ORDERED: Senokot 8.6 MG TAB PO PRN (07:07)
[2017-09-26] MEDS ORDERED: Loratadine 10 MG TAB PO PRN (07:07)
[2017-09-26] MEDS ORDERED: Chloraseptic Spray 180 ml Bottle PO PRN (07:07)
[2017-09-26] MEDS ORDERED: Dextrose 5% in Water 1,000 ML IV PRN (07:07)
[2017-09-26] MEDS ORDERED: Zolpidem Tartrate 5 MG TAB PO PRN (07:07)
[2017-09-26] MEDS ORDERED: hydrALAZINE 20 MG/ML VIAL SLOW IVP PRN (07:07)
[2017-09-26] MEDS ORDERED: HumaLOG 300 UNITS/3 ML VIAL SC PRN (07:07)
[2017-09-26] MEDS ORDERED: Mag-Al 1200 mg/1200 mg/30 ML UDCUP PO PRN (07:07)
[2017-09-26] MEDS ORDERED: Diabetic Tussin 200 MG/10 ML UDCUP PO PRN (07:07)
[2017-09-26] MEDS ORDERED: Milk Of Magnesia 30 ML UDCUP PO PRN (07:07)
[2017-09-26] MEDS ORDERED: Artificial Tears 18 DROP/0.9 ML EA EYE PRN (07:07)
[2017-09-26] MEDS ORDERED: HYDROcodone/Acetaminophen 5/325 mg Tablet PO PRN (07:07)
[2017-09-26] MEDS ORDERED: REG INSULIN SC SCH (09:00)
[2017-09-26] MEDS ORDERED: [UNRECOGNIZED DRUG - OTHER] SC SCH (09:00)
[2017-09-26] MEDS ORDERED: Prevnar 13-Val Conj/PF 0.5 ML SYRINGE IM ONE (09:00)
[2017-09-26] MEDS ORDERED: INSULIN NPH HUM SC SCH (09:00)
[2017-09-26] MEDS: cefTRIAXone\\ROCEPHIN 1 GM in Sodium Chloride 0.9% 100 ML IVPB SCH (09:04)
[2017-09-26] MEDS: Famotidine 20 MG TAB PO SCH ×2 (09:09→20:40)
[2017-09-26] MEDS: Sodium Chloride 0.9% 1,000 ML IV SCH ×2 (09:09→18:06)
[2017-09-26] MEDS: Enoxaparin Sodium 40 MG/0.4 ML SYRINGE SC SCH (09:10)
[2017-09-26] MEDS: Insulin NPH/Reg Insulin Hm 300 UNITS/3 ML VIAL SC SCH ×2 (10:28→22:57)
[2017-09-26] MEDS ORDERED: cefTRIAXone\\ROCEPHIN 1 GM in Sodium Chloride 0.9% 100 ML IVPB SCH (11:00)
--- NOTE | 2017-09-26 11:38 | HP ---
PRIMARY CARE PHYSICIAN: [facility] [place]. REASON FOR ADMISSION: Sepsis, urinary tract infection. HISTORY OF PRESENT ILLNESS: A 67-year-old female with a history of diabetes who presented to emergency room with complaint of generalized body ache , headache, fever, chills. For the last 2-3 days, she was experiencing UTI symptoms including dysuria, increased frequency. The patient started having fever for the last 2 days, her fever was increasing and she was becoming more and more weak and dizzy. She was also having nausea, but no vomiting. She was having very poor appetite. The patient was taking Advil at home for her body ache and headache. She does report lower abdominal discomfort. She denies any diarrhea. She denies any constipation, melena or hematochezia. When she presented to emergency room, she was hypotensive with the lowest blood pressure of 82/54. She was tachycardic with pulse 123 and febrile with a temperature of 101.4. She had routine blood test in the emergency room, which showed leukocytosis with a left shift. Her urinalysis was consistent with urinary tract infection. She was given Rocephin in the Emergency Room and subsequently she was stabilized and after that admitted to medical floor. When I saw this patient on medical floor, at that time she was still febrile. REVIEW OF SYSTEMS: The following complete review of systems was negative, unless otherwise mentioned in the HPI or below: Constitutional: Weight loss or gain, ability to conduct usual activities. Skin: Rash, itching. Eyes: Double vision, pain. ENT/Mouth: Nose bleeding, neck stiffness, pain, tenderness. Cardiovascular: Palpitations, dyspnea on exertion, orthopnea. Respiratory: Shortness of breath, wheezing, cough, hemoptysis, fever or night sweats. Gastrointestinal: Poor appetite, abdominal pain, heartburn, nausea, vomiting, constipation, or diarrhea. Genitourinary: Urgency, frequency, dysuria, nocturia. Musculoskeletal: Pain, swelling. Neurologic/Psychiatric: Anxiety, depression. Allergy/Immunologic: Skin rash, bleeding tendency. Please see my HPI for pertinent positive and negative. All other review of systems reviewed and negative except as mentioned in the HPI. ALLERGIES: No known drug allergy. CURRENT HOME MEDICATIONS: The patient is only taking insulin 70/30 at 25 units subcutaneously twice daily. PAST MEDICAL HISTORY: Diabetes type 2; history of hypertension, but not on any specific medication at this point; dyslipidemia, not on any specific treatment; history of diabetic foot infection, required amputation of second toe. PAST SURGICAL HISTORY: Hysterectomy, amputation of second toe on the left side , bilateral tubal ligation, amputation of right second toe due to osteomyelitis in 2013, incision and debridement for left diabetic foot infection. PAST PSYCHIATRIC HISTORY: Anxiety, depression SOCIAL HISTORY: The patient lives at home with family. No history of tobacco, alcohol or illicit drug abuse. FAMILY HISTORY: No strong family history of premature coronary artery disease, stroke or cancer. EMERGENCY ROOM COURSE: Patient is given Rocephin and IV fluid. PHYSICAL EXAMINATION: VITAL SIGNS: On arrival to the emergency room, blood pressure 82/54, pulse 123 , temperature 101.4, saturation 99% on room air, weight 63.5 kilograms. GENERAL: The patient is currently alert, awake, appears weak, in no obvious acute distress. HEENT: Head: Normocephalic, atraumatic. Eyes: Pupils round, reactive to light. Extraocular muscle intact. ENT: Oropharynx within normal limits. Moist mucous membranes, no oral lesion, no pharyngeal erythema, no exudate. NECK: Supple, no JVD, no thyromegaly, no carotid bruit. LUNGS: Clear to auscultation without any rhonchi or rales. CARDIAC: S1, S2 appears slightly tachycardic. No murmur, no gallop, no rub. ABDOMEN: Soft, bowel sounds present, nontender. Mild suprapubic discomfort noted. No peritoneal signs, no organomegaly, no mass. BACK: No CVA tenderness, no point tenderness. EXTREMITIES: Upper extremity, passive movement of all joints are normal. Lower extremity, within normal limits. Good distal pulsation, no edema. NEUROLOGIC: Nonfocal examination. She is moving all four limbs. Motor and sensation within normal limits. Cranial nerves intact. SKIN: No skin rash. HEMATOLOGIC: No lymphadenopathy. PSYCHIATRIC: Normal affect. SIGNIFICANT LABORATORY DATA AND IMAGING: EKG showing sinus tachycardia, left atrial enlargement. CBC: WBC 8.8, hemoglobin 11.5, platelet 195 with left shift. BMP: Sodium 135, potassium 4.3, chloride 103, carbon dioxide 23, anion gap 13, BUN 23, creatinine 0.87, glucose 116, calcium 9.1, lactic acid 1.1. LFT : AST 35, ALT 24, alkaline phosphatase 128, albumin 3.9. Urinalysis consistent with urinary tract infection. ASSESSMENT AND PLAN: 1. Sepsis secondary to urinary tract infection. Patient does have hypotension , tachycardia, high grade fever. Source of infection is most likely urinary tract infection. Her chest x-ray is unremarkable. The patient has received Rocephin in the emergency room. We will continue dual antibiotic therapy at this point given persistent fever. We will add levofloxacin. Continue gentle IV fluid at 100 mL per hour. Follow up on culture result. Based on culture result, we will change to oral antibiotic therapy in the next day or two. We will monitor hemodynamics while in hospital. 2. Urinary tract infection, clinically the patient does have cystitis. She does not have any CVA tenderness. Does not suspect any pyelonephritis. At this point, the patient is already on dual antibiotic therapy with Rocephin and Levaquin. Follow up on urine culture result and based on culture result, we will change to appropriate oral antibiotic therapy. 3. Diabetes type 2, currently appears well controlled. We will continue her home dose of insulin 70/30 at 25 units subcu b.i.d. along with Humalog insulin as per sliding scale. Diabetic diet will be given. 4. History of hypertension, dyslipidemia. Currently, patient is not taking all those medications. We will defer that to primary care physician upon follow up. Currently, she is hemodynamically stable. 5. Dehydration. Patient will be given gentle IV fluid while in hospital and we will repeat BMP tomorrow. 6. Anemia, normocytic, normochromic. We will continue with multivitamin 1 tablet p.o. daily. 7. Deep venous thrombosis prophylaxis. Lovenox 40 mg subcu daily. 8. Gastrointestinal prophylaxis, Pepcid 20 mg p.o. b.i.d. 9. CODE STATUS: The patient is FULL CODE. Patient's daughter is surrogate decision maker. 10. Anxiety, depression: will use ativan as needed basis only Disposition plan based on clinical course. She will require more than 2 midnights while in hospital. MANDIED
[2017-09-26] MEDS: HumaLOG 300 UNITS/3 ML VIAL SC PRN (12:05)
[2017-09-26] MEDS ORDERED: Lorazepam 2 MG/ML VIAL SLOW IVP PRN (13:25)
[2017-09-26] MEDS ORDERED: Lorazepam 2 MG/ML VIAL SLOW IVP SCH (13:30)
[2017-09-26] MEDS: Acetaminophen 325 MG TAB PO PRN (20:40)
[2017-09-27] MEDS: Sodium Chloride 0.9% 1,000 ML IV SCH (03:30)
[2017-09-27 04:55] LABS: #Lymphocytes 1.3 thou/uL (1.20-3.40); #Monocytes 0.7 thou/uL (0.11-0.59); #Neutrophils 4.1 thou/uL (1.40-6.50); %Basophils 0.1 % (0.0-1.0); %Eosinophils 0.6 % (0.0-10.0); %Lymphocytes 20.9 % (21.0-51.0); %Monocytes 11.1 % (0.0-10.0); %Neutrophils 67.4 % (42.0-75.0); Hemoglobin 10.7 g/dL (12.0-16.0); Mean Corpuscular Hemoglobin 30.8 pg (27.0-31.0); Mean Corpuscular Volume 90.6 fl (81.0-99.0); Mean Platelet Volume 9.1 fL (7.4-10.4); Platelet Count 172 thou/uL (130-400); RBC Distribution Width 11.5 % (11.5-14.5); Red Blood Cell (RBC) Count 3.47 mill/uL (4.20-5.40)
[2017-09-27 04:57] LABS: Anion Gap 8 mmol/L (10-20); BUN (Urea Nitrogen) 13 mg/dL (9.8-20.1); Calc. Creatinine Clearance 84 mL/min (70-130); Calcium 8.6 mg/dL (7.8-10.44); Carbon Dioxide 25 mmol/L (23-31); Chloride 107 mmol/L (98-107); Estimated GFR-MDRD 78; Glucose 172 mg/dL (80-115); Sodium 136 mmol/L (136-145)
[2017-09-27] MEDS: HumaLOG 300 UNITS/3 ML VIAL SC PRN (05:56)
[2017-09-27] MEDS: cefTRIAXone\\ROCEPHIN 1 GM in Sodium Chloride 0.9% 100 ML IVPB SCH (07:56)
[2017-09-27] MEDS: Famotidine 20 MG TAB PO SCH (07:57)
[2017-09-27] MEDS: Acetaminophen 325 MG TAB PO PRN (07:57)
[2017-09-27] MEDS: Enoxaparin Sodium 40 MG/0.4 ML SYRINGE SC SCH (07:57)
[2017-09-27] MEDS: Insulin NPH/Reg Insulin Hm 300 UNITS/3 ML VIAL SC SCH (07:58)
[2017-09-27] MEDS ORDERED: Multivitamin W/ Minerals 1 TAB PO SCH (09:00)
--- NOTE | 2017-09-27 10:24 | PDOC.PN ---
- Subjective Encounter Start Date: 09/27/17 Encounter Start Time: 09:00 -: old records requested/rev Patient seen and examined for UTI. No new complaints. No overnight events pt is feeling clinically better, still has low grade fever - Objective Resuscitation Status: Resuscitation Status FULL:Full Resuscitation MAR Reviewed: Yes Vital Signs & Weight: Vital Signs (12 hours) Temp Pulse Resp BP Pulse Ox 09/27/17 08:00 99.8 F H 92 16 96 09/27/17 07:30 99.8 F H 92 16 145/65 H 96 Weight Weight 159 lb 8 oz I&O: 09/26/17 09/27/17 09/28/17 06:59 06:59 06:59 Intake Total 1761 Output Total 250 Balance 1511 Result Diagrams: 09/27/17 04:12 09/27/17 04:12 Additional Labs: Accuchecks 09/27/17 09/26/17 09/26/17 04:30 20:35 16:52 POC Glucose 190 H 199 H 174 H 09/26/17 11:13 POC Glucose 219 H Phys Exam - Physical Examination Constitutional: NAD HEENT: PERRLA, moist MMs, sclera anicteric Neck: no nodes, no JVD, supple, full ROM Respiratory: no wheezing, no rales, no rhonchi Cardiovascular: RRR, no significant murmur, no rub Gastrointestinal: soft, non-tender, no distention, positive bowel sounds Musculoskeletal: no edema, pulses present Neurological: non-focal, normal sensation, moves all 4 limbs Psychiatric: normal affect, A&O x 3 Skin: no rash, normal turgor Dx/Plan (1) Sepsis Code(s): A41.9 - SEPSIS, UNSPECIFIED ORGANISM Status: Acute Qualifiers: (2) UTI (urinary tract infection) Status: Acute Qualifiers: Urinary tract infection type: acute cystitis Hematuria presence: without hematuria Qualified Code(s): N30.00 - Acute cystitis without hematuria (3) Dyslipidemia Code(s): E78.5 - HYPERLIPIDEMIA, UNSPECIFIED Status: Chronic (4) Anxiety and depression Code(s): F41.9 - ANXIETY DISORDER, UNSPECIFIED; F32.9 - MAJOR DEPRESSIVE DISORDER, SINGLE EPISODE, UNSPECIFIED Status: Chronic (5) Anemia, normocytic normochromic Code(s): D64.9 - ANEMIA, UNSPECIFIED Status: Chronic (6) Diabetes type 2, controlled Code(s): E11.9 - TYPE 2 DIABETES MELLITUS WITHOUT COMPLICATIONS Status: Chronic Qualifiers: (7) Hypertension Code(s): I10 - ESSENTIAL (PRIMARY) HYPERTENSION Status: Chronic Qualifiers: - Plan cont current plan of care, continue antibiotics * continue rocephin * DC levaquin due to resistance * on discharge omnicef * will continue iv antibiotics today and tomorrow due to her fever * possible discharge tomorrow * medication reviewed as below * symptomatic treatment * DC IVF * will give lisnopril and lovastatin on discharge. Review of Systems - Review of Systems Constitutional: fever Eyes: negative: Pain, Vision Change, Conjunctivae Inflammation, Eyelid Inflammation, Redness, Other ENT: negative: Ear Pain, Ear Discharge, Nose Pain, Nose Discharge, Nose Congestion, Mouth Pain, Mouth Swelling, Throat Pain, Throat Swelling, Other Respiratory: negative: Cough, Dry, Shortness of Breath, Hemoptysis, SOB with Excertion, Pleuritic Pain, Sputum, Wheezing Cardiovascular: negative: chest pain, palpitations, orthopnea, paroxysmal nocturnal dyspnea, edema, light headedness, other Gastrointestinal: negative: Nausea, Vomiting, Abdominal Pain, Diarrhea, Constipation, Melena, Hematochezia, Other Genitourinary: negative: Dysuria, Frequency, Incontinence, Hematuria, Retention , Other Musculoskeletal: negative: Neck Pain, Shoulder Pain, Arm Pain, Back Pain, Hand Pain, Leg Pain, Foot Pain, Other Skin: negative: Rash, Lesions, Davion, Bruising, Other - Medications/Allergies Allergies/Adverse Reactions: Allergies Allergy/AdvReac Type Severity Reaction Status Date / Time No Known Drug Allergies Allergy Verified 12/24/15 21:01 Medications: Current Medications Acetaminophen (Tylenol) 650 mg PO Q4H PRN PRN Reason: Headache/Fever or Pain Last Admin: 09/27/17 07:57 Dose: 650 mg Hydrocodone Bitart/Acetaminophen (Astor 5/325) 1 tab PO Q4H PRN PRN Reason: Moderate Pain (4-6) Last Admin: 09/26/17 09:02 Dose: 1 tab Al Hydroxide/Mg Hydroxide (Maalox) 30 ml PO Q6H PRN PRN Reason: Heartburn or Indigestion Artificial Tears (Tears Naturale) 0 drop EA EYE PRN PRN PRN Reason: Dry Eyes Dextrose/Water (Dextrose 50%) 25 gm SLOW IVP PRN PRN PRN Reason: Hypoglycemia Enoxaparin Sodium (Lovenox) 40 mg SC 0900 [facility] Last Admin: 09/27/17 07:57 Dose: 40 mg Famotidine (Pepcid) 20 mg PO BID [facility] Last Admin: 09/27/17 07:57 Dose: Not Given Glucagon (Glucagon) 1 mg IM PRN PRN PRN Reason: Hypoglycemia Guaifenesin (Robitussin Sf) 200 mg PO Q4H PRN PRN Reason: Cough Hydralazine HCl (Apresoline) 10 mg SLOW IVP Q4H PRN PRN Reason: Systolic BP > 180 Ceftriaxone Sodium 1 gm/ (Sodium Chloride) 100 mls @ 200 mls/hr IVPB Q24HR [facility] Last Admin: 09/27/17 07:56 Dose: 100 mls Dextrose/Water (D5w) 1,000 mls @ 0 mls/hr IV .Q0M PRN; As Directed PRN Reason: Hypoglycemia Insulin Human Isoph/Insulin Regular (Humulin 70/30) 25 units SC BID [facility] Last Admin: 09/27/17 07:58 Dose: 25 unit Insulin Human Lispro (Humalog) 0 units SC .MODERATE SLIDING SC PRN PRN Reason: Moderate Correctional Scale Last Admin: 09/27/17 05:56 Dose: 2 unit Insulin Human Lispro (Humalog) 0 units SC .BEDTIME SLIDING SC PRN PRN Reason: Bedtime Correctional Scale Iron/Minerals/Multivitamins (Theragran M) 1 tab PO DAILY [facility] Last Admin: 09/27/17 07:57 Dose: 1 tab Loperamide HCl (Imodium) 2 mg PO PRN PRN PRN Reason: Diarrhea/Loose Stools Loratadine (Claritin) 10 mg PO DAILYPRN PRN PRN Reason: Sinus Symptoms Lorazepam (Ativan) 1 mg SLOW IVP Q6H PRN PRN Reason: ANXIETY Magnesium Hydroxide (Milk Of Magnesium) 30 ml PO DAILYPRN PRN PRN Reason: Constipation Mineral Oil/White Petrolatum (Eucerin Cream) 0 gm TOP BIDPRN PRN PRN Reason: Dry Skin Ondansetron HCl (Zofran Odt) 4 mg PO Q6H PRN PRN Reason: Nausea/Vomiting Last Admin: 09/26/17 12:00 Dose: 4 mg Ondansetron HCl (Zofran) 4 mg IVP Q6H PRN PRN Reason: Nausea/Vomiting Phenol (Chloraseptic [place] 180 Ml Bot) 0 ml PO PRN PRN PRN Reason: Sore Throat Senna (Senokot) 2 tab PO HSPRN PRN PRN Reason: Constipation Sodium Chloride ([place] Nasal [place] 0.65%) 0 ml EA NARE QIDPRN PRN PRN Reason: Nasal Congestion Sodium Chloride (Flush - Normal Saline) 10 ml IVF Q12HR [facility]AL[facility] Last Admin: 09/27/17 09:06 Dose: Not Given Sodium Chloride (Flush - Normal Saline) 10 ml IVF PRN PRN PRN Reason: Saline Flush Zolpidem Tartrate (Ambien) 5 mg PO HSPRN PRN PRN Reason: Insomnia
[2017-09-27 12:05] VITALS: BP 115/63; TEMP 98.3
--- NOTE | 2017-09-27 12:22 | DIS ---
PRIMARY CARE PHYSICIAN: Dr. Petr Dove DATE OF ADMISSION: 09/26/2017 DATE OF DISCHARGE: 09/27/2017 DISCHARGE DISPOSITION: Home. PRIMARY DISCHARGE DIAGNOSES: 1. Sepsis, resolved. 2. Urinary tract infection due to Escherichia coli. SECONDARY DISCHARGE DIAGNOSES: Anemia normocytic normochromic, anxiety, depression, diabetes type 2, dyslipidemia, hypertension. PRIMARY PROCEDURE/OPERATION: None. RADIOLOGICAL INVESTIGATION: Chest x-ray normal. SIGNIFICANT LABORATORY DATA: WBC 6.0, hemoglobin 10.7, platelet 172. Sodium 136, potassium 4.0, BUN 13, creatinine 0.74, calcium 8.6. LFT normal. Urinalysis suggestive of UTI. Urine culture grew E. coli. Blood culture negative. DISCHARGE MEDICATIONS: Aspirin 81 mg p.o. daily, lovastatin 20 mg p.o. at bedtime, lisinopril 5 mg p .o. daily, Omnicef 300 mg p.o. twice daily for 10 days, insulin 70/30 at 25 units subcutaneous b.i.d. CONTRAINDICATIONS: None. CODE STATUS: FULL CODE. INPATIENT CONSULTANTS: None. ALLERGIES: No known drug allergy. DISCHARGE PLAN: Post hospital, patient will follow up with primary care physician. HOSPITAL COURSE: A 67-year-old female with above-mentioned medical problem who was admitted for UTI and sepsis. Please see my HPI for further detail. Initially, we suspected that this patient may nee d more than 2 midnights, but patient had dramatic improvement with IV antibiotic therapy. We treated her with Rocephin and Levaquin, but her cultures reported as resistant to LEVOFLOXACIN and that is w hy that medication was discontinued, though patient has received 2 doses of Rocephin. She was having only low-grade fever and patient was feeling much better and that is why she expressed her wish to g o home. Upon discharge, we are changing to Omnicef for another 10 days. As patient also has underly ing history of hypertension, dyslipidemia, we prescribed lovastatin and lisinopril upon discharge, sh e will continue her home dose of insulin therapy. All new medication prescription given to her. Brissa villarreal is medically stable for discharge today. Patient is seen and examined at bedside today. Please see my progress note from today for further de tails.
== END 2017-09-27 14:53 | disposition home or self-care (01) | DRG 872 ==
LOC: ERS 17:53 → T4-A 09-26 00:39
PROVIDERS: ADMIT Internal Medicine; ATTEND Internal Medicine
DX: A41.51 Sepsis due to Escherichia coli [E. coli] (principal); N39.0 Urinary tract infection, site not specified; E11.9 Type 2 diabetes mellitus without complications; I10 Essential (primary) hypertension; E78.5 Hyperlipidemia, unspecified; F41.9 Anxiety disorder, unspecified; E86.0 Dehydration; D64.9 Anemia, unspecified; F32.9 Major depressive disorder, single episode, unspecified; Z90.710 Acquired absence of both cervix and uterus; Z89.422 Acquired absence of other left toe(s); Z89.421 Acquired absence of other right toe(s)
CPT/HCPCS: 36415; 36416; 71045; 80048; 80053; 81003; 81015; 83605; 85025; 87040; 87077; 87086; 87186; 93005; 96361; 96365; 96367; A4216; J0696; J1650; J1956; J2060; J3370; J7050; Q0162

== ENCOUNTER 2017-11-27 12:07 | Inpatient (IN) | payer MEDICAID, SELFPAY ==
[2017-11-27 14:33] LABS: #Eosinphils 0.1 thou/uL (0.0-0.7); #Lymphocytes 1.4 thou/uL (1.20-3.40); #Monocytes 0.3 thou/uL (0.11-0.59); %Basophils 0.5 % (0.0-1.0); %Eosinophils 1.7 % (0.0-10.0); %Lymphocytes 23.8 % (21.0-51.0); %Monocytes 5.7 % (0.0-10.0); %Neutrophils 68.3 % (42.0-75.0); Hemoglobin 11.1 g/dL (12.0-16.0); Mean Corpuscular HGB CONC 34.9 g/dL (32.0-36.0); Mean Corpuscular Hemoglobin 31.2 pg (27.0-31.0); Mean Corpuscular Volume 89.5 fL (78.0-98.0); Mean Platelet Volume 9.2 fL (7.4-10.4); Platelet Count 267 thou/uL (130-400); RBC Distribution Width 11.8 % (11.5-14.5); Red Blood Cell (RBC) Count 3.56 mill/uL (4.20-5.40); White Blood Cell (WBC) Count 5.9 thou/uL (4.8-10.8)
[2017-11-27 14:55] LABS: ALT (SGPT) 10 U/L (8-55); AST (SGOT) 16 U/L (5-34); Albumin 4.1 g/dL (3.4-4.8); Alkaline Phosphatase 129 U/L (40-150); Anion Gap 17 mmol/L (10-20); BUN (Urea Nitrogen) 24 mg/dL (9.8-20.1); Bilirubin, Total 0.2 mg/dL (0.2-1.2); Calc. Creatinine Clearance 0 mL/min (70-130); Calcium 9.2 mg/dL (7.8-10.44); Carbon Dioxide 21 mmol/L (23-31); Chloride 99 mmol/L (98-107); Estimated GFR-MDRD 36; Globulin 4.3 g/dL (2.4-3.5); Glucose 295 mg/dL (80-115); Potassium 5.7 mmol/L (3.5-5.1); Protein, Total 8.4 g/dL (6.0-8.3); Sodium 131 mmol/L (136-145)
--- NOTE | 2017-11-27 15:48 | RAD ---
RIGHT FOOT THREE VIEWS: History: Infection. Comparison: 12-30-16 FINDINGS: Prior second proximal phalanx amputation. There are erosive type changes of the distal phalanx tuft o f the great toe as well as what appears to be a soft tissue ulcer. There is ulceration and lack of no rmal cortex of the distal phalanx of the third toe with soft tissue swelling. IMPRESSION: 1. Findings suggesting osteomyelitis of the middle toe distal phalanx. 2. [place] chronic osteomyelitis of the great toe distal phalanx tuft. POS: [facility]
[2017-11-27] MEDS ORDERED: Piperacillin/Tazobactam 4.5 GM VIAL ONE (15:55)
[2017-11-27] MEDS ORDERED: Sodium Chloride 0.9% 1,000 ML IV SCH (18:00)
[2017-11-27 19:19] VITALS: BMI 24.4
[2017-11-27 20:30] LABS: Anion Gap 13 mmol/L (10-20); BUN (Urea Nitrogen) 23 mg/dL (9.8-20.1); Calc. Creatinine Clearance 43 mL/min (70-130); Carbon Dioxide 23 mmol/L (23-31); Chloride 103 mmol/L (98-107); Estimated GFR-MDRD 38; Glucose 324 mg/dL (80-115); Potassium 5.6 mmol/L (3.5-5.1); Sodium 133 mmol/L (136-145)
[2017-11-27] MEDS ORDERED: Acetaminophen 325 MG TAB PO PRN (20:37)
[2017-11-27] MEDS ORDERED: Dextrose 5% in Water 1,000 ML IV PRN (20:37)
[2017-11-27] MEDS ORDERED: Mag-Al 1200 mg/1200 mg/30 ML UDCUP PO PRN (20:37)
[2017-11-27] MEDS ORDERED: Senokot 8.6 MG TAB PO PRN (20:37)
[2017-11-27] MEDS ORDERED: Calcium Carbonate 500 MG ChewTAB PO PRN (20:37)
[2017-11-27] MEDS ORDERED: Insulin Regular 300 UNITS/3 ML VIAL SC PRN (20:37)
[2017-11-27] MEDS ORDERED: Dextrose 50% Abboject 50 ML SYRINGE SLOW IVP PRN (20:37)
[2017-11-27] MEDS ORDERED: Vancomycin HCl 1 GM in Premix Bag 1 BAG IVPB SCH (20:45)
[2017-11-27] MEDS: Famotidine 20 MG TAB PO SCH (21:42)
[2017-11-27] MEDS: Piperacillin/Tazobactam 3.375 GM in Sodium Chloride 0.9% 100 ML IVPB SCH (21:42)
[2017-11-27] MEDS: Docusate 100 MG CAP PO SCH (21:42)
[2017-11-27] MEDS: NPH, Human Insulin Isophane 300 UNIT/3 ML VIAL SC SCH (22:04)
--- NOTE | 2017-11-27 23:54 | HP ---
DATE OF ADMISSION: 11/27/2017 CHIEF COMPLAINT: Swelling of the right third toe. The patient was sent from a local clinic. HISTORY OF PRESENT ILLNESS: The patient is a 67-year-old female with diabetes mellitus type 2, hyper tension, osteomyelitis of the left great toe, status post amputation in 2017, presented to the emerge ncy room with above complaints. Patient reported that she went to the clinic yesterday and was sent to the emergency room for possible right third toe infection. Over the last 1 week or so, she notice d some redness along with worsening swelling of the right third toe. It is painful and is warm to to uch. No fever, chills, nausea or vomiting reported. She has a history of right second toe amputatio n. The pain was mild to moderate in intensity, worse on movement. She also noticed small amount of drainage, which was more or less clear. In the emergency room, initial vital signs showed temperature 98.2, respirations 20, pulse 102, blood pressure 115/66 with O2 saturation 94% on room air. She received vancomycin and Zosyn in the emerge ncy room. Blood cultures were sent. The patient was started on Bactrim 3 days ago. PAST MEDICAL HISTORY: 1. Diabetes mellitus type 2. 2. Hypertension. 3. History of osteomyelitis of the left great toe, status post amputation. 4. Second right toe amputation for diabetic foot infection. 5. Dyslipidemia. 6. Anxiety and depression. PAST SURGICAL HISTORY: 1. Hysterectomy: 2. Amputation of the right second toe and left great toe as discussed above. 3. Bilateral tubal ligation. 4. Incision and debridement of left diabetic foot infection. ALLERGIES: Patient denies any drug allergies. CURRENT HOME MEDICATIONS: NovoLog mix 70/30 15 units b.i.d., ferrous sulfate 325 mg daily. SOCIAL HISTORY: Patient currently lives at home. She denies any smoking, alcohol or drug use. She makes her own decision with the help of her family. She is FULL CODE. FAMILY HISTORY: Negative for premature coronary artery disease. REVIEW OF SYSTEMS: The following complete review of systems was negative, unless otherwise mentioned in the HPI or below: Constitutional: Weight loss or gain, ability to conduct usual activities. Sk in: Rash, itching. Eyes: Double vision, pain. ENT/Mouth: Nose bleeding, neck stiffness, pain, te nderness. Cardiovascular: Palpitations, dyspnea on exertion, orthopnea. Respiratory: Shortness of breath, wheezing, cough, hemoptysis, fever or night sweats. Gastrointestinal: Poor appetite, abdom inal pain, heartburn, nausea, vomiting, constipation, or diarrhea. Genitourinary: Urgency, frequenc y, dysuria, nocturia. Musculoskeletal: Pain, swelling. Neurologic/Psychiatric: Anxiety, depressio n. Allergy/Immunologic: Skin rash, bleeding tendency. PHYSICAL EXAMINATION: VITAL SIGNS: Temperature 98.2, respirations 20, pulse rate 102, blood pressure 115/66 with O2 satura tion 94% on room air. GENERAL: A 67-year-old female in no apparent distress. Pain controlled at this time. HEENT: Head, atraumatic and normocephalic, Sclerae are anicteric. Moist mucous membrane, no oral le jamarcus. NECK: Supple, no JVD, no carotid bruit. LUNGS: Clear to auscultation bilaterally. HEART: S1, S2 present. Regular rate and rhythm. No murmur, rubs, or gallops. ABDOMEN: Soft, nontender, bowel sounds present. EXTREMITIES: No edema or calf tenderness. There is significant swelling of the right third toe reji g with erythema and small amount of drainage. It is warm and tender as well. SKIN: As discussed above. LYMPH NODES: No palpable lymph nodes in the neck. PERIPHERAL VASCULAR: Radial and dorsalis pedis pulses are palpable bilaterally. LYMPH NODES: No palpable lymph nodes in the neck. LABORATORY AND X-RAY FINDINGS: CBC showed WBC 5.9 with hemoglobin 11.1, hematocrit 31.8, platelet 26 7. Chemistries showed sodium 131, potassium 5.7, chloride 99, bicarbonate 21, BUN of 24, creatinine 1.46, glucose 295. Creatinine in September was 0.74. CRP was less than 0.5. X-ray of the right foot by my review showed suspected osteomyelitis. IMPRESSION: 1. Right foot diabetic foot infection with suspected osteomyelitis. 2. Diabetes mellitus type 2. 3. Electrolyte abnormalities. The patient has hyponatremia and hyperkalemia. Hyperkalemia is proba ben secondary to Bactrim, which will be held. 4. Acute kidney injury on chronic kidney disease stage 2, probably secondary to #1. It is unclear w hether she is still on lisinopril. 5. Chronic anemia. 6. Dyslipidemia. PLAN: The patient will be monitored on the medical floor. We will continue vancomycin and Zosyn wit h IV fluids. We will keep her n.p.o. past midnight. Insulin sliding scale will be started. We will consult Infectious Disease in a.m. Plan of care was discussed with the patient in detail. She stated understanding.
[2017-11-28 00:14] LABS: Hemoglobin A1c 8.2 % (4.0-6.0)
[2017-11-28] MEDS: Sodium Chloride 0.9% 1,000 ML IV SCH ×4 (01:22→21:09)
[2017-11-28] MEDS: Piperacillin/Tazobactam 3.375 GM in Sodium Chloride 0.9% 100 ML IVPB SCH ×4 (04:08→21:08)
[2017-11-28 05:14] LABS: #Eosinphils 0.3 thou/uL (0.0-0.7); #Lymphocytes 2.1 thou/uL (1.20-3.40); #Monocytes 0.5 thou/uL (0.11-0.59); #Neutrophils 2.9 thou/uL (1.40-6.50); %Basophils 0.5 % (0.0-1.0); %Eosinophils 4.5 % (0.0-10.0); %Lymphocytes 35.9 % (21.0-51.0); %Monocytes 9.1 % (0.0-10.0); Hemoglobin 10.7 g/dL (12.0-16.0); Mean Corpuscular HGB CONC 34.6 g/dL (32.0-36.0); Mean Corpuscular Hemoglobin 30.8 pg (27.0-31.0); Mean Corpuscular Volume 89.1 fL (78.0-98.0); Mean Platelet Volume 8.8 fL (7.4-10.4); Platelet Count 236 thou/uL (130-400); RBC Distribution Width 11.6 % (11.5-14.5); Red Blood Cell (RBC) Count 3.48 mill/uL (4.20-5.40); White Blood Cell (WBC) Count 5.9 thou/uL (4.8-10.8)
[2017-11-28 05:23] LABS: Anion Gap 14 mmol/L (10-20); BUN (Urea Nitrogen) 22 mg/dL (9.8-20.1); Calc. Creatinine Clearance 51 mL/min (70-130); Carbon Dioxide 21 mmol/L (23-31); Chloride 106 mmol/L (98-107); Estimated GFR-MDRD 47; Glucose 225 mg/dL (80-115); Potassium 5.2 mmol/L (3.5-5.1); Sodium 136 mmol/L (136-145)
[2017-11-28] MEDS: Famotidine 20 MG TAB PO SCH ×2 (09:39→21:10)
[2017-11-28] MEDS: Docusate 100 MG CAP PO SCH ×2 (09:44→21:10)
[2017-11-28] MEDS: Insulin Regular 300 UNITS/3 ML VIAL SC PRN ×2 (10:41→12:21)
[2017-11-28] MEDS: NPH, Human Insulin Isophane 300 UNIT/3 ML VIAL SC SCH ×2 (13:52→21:09)
[2017-11-28] MEDS ORDERED: PHENYLEPHRINE-NS 100 MCG/ML 10 ML SYRINGE ONE (13:56)
[2017-11-28] MEDS ORDERED: PROPOFOL 200 MG/20 ML VIAL ONE (13:56)
--- NOTE | 2017-11-28 14:00 | CON ---
DATE OF CONSULTATION: 11/28/2017 REASON FOR CONSULTATION: Right third toe osteomyelitis. HISTORY OF PRESENT ILLNESS: This is a 67-year-old patient, who has a history of type 2 diabetes, felix ropathy with previous complications in the right and left feet with amputations, now developed a righ t third toe ulcer at the tip with swelling. This led to her current admission. This process was ass ociated with pain and inflammatory changes. No headaches, no change in visual symptoms, sore throat, odynophagia, dysphagia, no toothache, no back pain, no dyspnea or chest pain, no abdominal pain or d iarrhea, no genitourinary symptoms, no change in neurological condition. PAST MEDICAL HISTORY: Type 2 diabetes, neuropathy, multiple prior complications in the right and lef t feet with partial amputations, dyslipidemia. PAST SURGICAL HISTORY: Hysterectomy, previous partial amputations in right and left feet, tubal liga tion. ALLERGIES: None. MEDICATIONS: Currently Tylenol, Maalox, Tums, dextrose, Colace, Feosol, glucagon insulin, Zosyn, van comycin. PHYSICAL EXAMINATION: VITAL SIGNS: Now are normal. Slight elevation in systolic blood pressure. SKIN EXAM: Shows an ulcerated area at the tip of the right third toe associated with swelling and di scoloration. No lymphadenopathy. HEENT EXAM: Noncontributory. NECK: Supple. LUNGS: With symmetric clear breath sounds. HEART: S1 and S2, regular rate with a soft aortic murmur. ABDOMEN: Soft, not distended or tender. No ascites. No bladder distention. EXTREMITIES: Pulses are 1+ in popliteal and dorsalis pedis as well as posterior tibialis. Cap refil l less than 3 seconds. NEUROLOGIC: Cognitive function appears to be intact. Strength is 5/5 in all 4 extremities. LABORATORY DATA: White cell count 5.9, hemoglobin 11, platelets 267. Sodium 133 and then 136, creat inine 1.37 and 1.15, glucose 225. Liver profile normal, albumin 4.1. There is a gram-positive abraham i n one set of blood cultures submitted, most likely a contaminant. The imaging of the right foot with erosive-type changes distal phalanx great toe as well as ulceration like normal cortex distal phalan x third toe. DISCUSSION: Patient has osteomyelitis of the third toe with ulceration, good vascular supply, and wi ll be eligible for amputation of the toe or distal aspect of it. The first toe clinically does not h ave any inflammatory changes and I would probably not recommend any intervention for that toe. Once amputation is completed, we should be able to have a clear margin. Therefore, antimicrobial therapy would not be needed upon discharge. I believe that the positive blood culture is likely to represent a contamination of the sample rather than true pathogen.
--- NOTE | 2017-11-28 14:36 | PDOC.PN ---
- Subjective Encounter Start Date: 11/28/17 Encounter Start Time: 14:35 Subjective: no new complaints. no significant pain i R toe -: no fever/chills/nausea/Abd pain - Objective Resuscitation Status: Resuscitation Status FULL:Full Resuscitation MAR Reviewed: Yes Vital Signs & Weight: Vital Signs (12 hours) Temp Pulse Resp BP BP Pulse Ox 11/28/17 11:38 98.2 F 93 16 149/88 H 96 11/28/17 08:09 98.2 F 87 17 149/88 H 98 11/28/17 08:00 98.2 F 93 16 98 11/28/17 04:46 98.3 F 116 H 22 H 155/77 H 92 L 11/28/17 04:28 98.2 F 88 20 132/80 94 L Weight Admit Weight 151 lb 4.8 oz Weight 151 lb 4.8 oz I&O: 11/27/17 11/28/17 11/29/17 06:59 06:59 06:59 Intake Total 1080 Balance 1080 Result Diagrams: 11/28/17 04:35 11/28/17 04:35 Additional Labs: Accuchecks 11/28/17 11/28/17 11:43 04:33 POC Glucose 227 H 189 H Microbiology 11/27/17 14:51 Venous blood - Right Arm Blood Culture - Preliminary Gram Positive Dean 11/27/17 13:10 Venous blood - Left Arm Blood Culture - Preliminary Specimen has been received and culture in progress. No Growth to date. Laboratory Tests 09/27/17 11/27/17 11/27/17 04:12 13:10 13:10 Creatinine 0.74 1.46 H Hemoglobin A1c C-Reactive Protein Less than 0.50 11/27/17 11/27/17 11/28/17 13:10 20:01 04:35 Creatinine 1.37 H 1.15 H Hemoglobin A1c 8.2 H C-Reactive Protein labs reviewed Phys Exam - Physical Examination Constitutional: NAD HEENT: PERRLA, moist MMs, sclera anicteric, oral pharynx no lesions Neck: no nodes, no JVD, supple, full ROM Respiratory: no wheezing, no rales, no rhonchi, clear to auscultation bilateral Cardiovascular: RRR, no significant murmur, no rub Gastrointestinal: soft, non-tender, no distention, positive bowel sounds Musculoskeletal: no edema, pulses present Neurological: non-focal, normal sensation, moves all 4 limbs R second toe tip ulceration Psychiatric: normal affect, A&O x 3 Skin: no rash Dx/Plan (1) Toe osteomyelitis, right Code(s): M86.9 - OSTEOMYELITIS, UNSPECIFIED Status: Acute (2) Hyperkalemia Code(s): E87.5 - HYPERKALEMIA Status: Acute (3) LEVAR (acute kidney injury) Code(s): N17.9 - ACUTE KIDNEY FAILURE, UNSPECIFIED Status: Acute (4) Anemia, normocytic normochromic Code(s): D64.9 - ANEMIA, UNSPECIFIED Status: Chronic (5) Diabetes type 2, controlled Code(s): E11.9 - TYPE 2 DIABETES MELLITUS WITHOUT COMPLICATIONS Status: Chronic Qualifiers: (6) Dyslipidemia Code(s): E78.5 - HYPERLIPIDEMIA, UNSPECIFIED Status: Chronic (7) Hypertension Code(s): I10 - ESSENTIAL (PRIMARY) HYPERTENSION Status: Chronic Qualifiers: - Plan continue antibiotics, out of bed/ambulate, DVT proph w/SCDs cont IV ABx .follow Cx results. 05/08 +ve GNR-likley contamination -: GS and ID consulted. will need amputation of 2nd toe -: cont home meds as below. -: will give 1 dose kayexalate for high Potassium.recheck -: ISS w accuchecks. * .renal Fx improving. cont IVF and recheck * am labs Review of Systems - Review of Systems Constitutional: weakness, malaise. negative: fever, chills, sweats, other ENT: negative: Ear Pain, Ear Discharge, Nose Pain, Nose Discharge, Nose Congestion, Mouth Pain, Mouth Swelling, Throat Pain, Throat Swelling, Other Respiratory: negative: Cough, Dry, Shortness of Breath, Hemoptysis, SOB with Excertion, Pleuritic Pain, Sputum, Wheezing Cardiovascular: negative: chest pain, palpitations, orthopnea, paroxysmal nocturnal dyspnea, edema, light headedness, other Gastrointestinal: negative: Nausea, Vomiting, Abdominal Pain, Diarrhea, Constipation, Melena, Hematochezia, Other Genitourinary: negative: Dysuria, Frequency, Incontinence, Hematuria, Retention , Other Musculoskeletal: negative: Neck Pain, Shoulder Pain, Arm Pain, Back Pain, Hand Pain, Leg Pain, Foot Pain, Other Neurological: negative: Weakness, Numbness, Incoordination, Change in Speech, Confusion, Seizures, Other - Medications/Allergies Allergies/Adverse Reactions: Allergies Allergy/AdvReac Type Severity Reaction Status Date / Time No Known Drug Allergies Allergy Verified 12/24/15 21:01 Medications: Current Medications Acetaminophen (Tylenol) 650 mg PO Q4H PRN PRN Reason: Headache/Fever or Pain Al Hydroxide/Mg Hydroxide (Maalox) 30 ml PO Q6H PRN PRN Reason: Heartburn or Indigestion Calcium Carbonate (Tums) 1,000 mg PO Q4H PRN PRN Reason: Heartburn or Indigestion Dextrose/Water (Dextrose 50%) 25 gm SLOW IVP PRN PRN PRN Reason: Hypoglycemia Docusate Sodium (Colace) 100 mg PO BID [facility] Last Admin: 11/28/17 09:44 Dose: 100 mg Famotidine (Pepcid) 20 mg PO BID [facility] Last Admin: 11/28/17 09:39 Dose: 20 mg Ferrous Sulfate (Feosol) 325 mg PO DAILY [facility] Glucagon (Glucagon) 1 mg IM PRN PRN PRN Reason: Hypoglycemia Dextrose/Water (D5w) 1,000 mls @ 0 mls/hr IV .Q0M PRN; As Directed PRN Reason: Hypoglycemia Piperacillin Sod/Tazobactam (Sod 3.375 gm/ Sodium Chloride) 100 mls @ 200 mls/ hr IVPB 0300,0900,1500,2100 [facility] Last Admin: 11/28/17 09:40 Dose: 100 mls Vancomycin HCl 750 mg/ Sodium (Chloride) 250 mls @ 250 mls/hr IVPB 1700 [facility] Sodium Chloride (Normal Saline 0.9%) 1,000 mls @ 120 mls/hr IV .Q8H20M [facility] Last Admin: 11/28/17 05:48 Dose: 1,000 mls Insulin Human NPH (Humulin N) 10 unit SC BID [facility] Last Admin: 11/28/17 13:52 Dose: Not Given Insulin Human Regular (Humulin R) 0 units SC .MILD SLIDING SCALE PRN PRN Reason: Mild Correctional Scale Last Admin: 11/28/17 12:21 Dose: 3 unit Insulin Human Regular (Humulin R) 0 units SC .BEDTIME SLIDING SC PRN PRN Reason: Bedtime Correctional Scale Last Admin: 11/27/17 22:03 Dose: 4 units Miscellaneous Medication (Pharmacy To Dose) 1 each IVPB PRN PRN PRN Reason: Pharmacy to dose Senna (Senokot) 2 tab PO HSPRN PRN PRN Reason: Constipation Sodium Chloride (Flush - Normal Saline) 10 ml IVF Q12HR [facility] Sodium Chloride (Flush - Normal Saline) 10 ml IVF PRN PRN PRN Reason: Saline Flush
--- NOTE | 2017-11-28 14:50 | CON ---
DATE OF CONSULTATION: 11/28/2017 REASON FOR CONSULTATION: Diabetic foot infection. HISTORY: Ms. Joseph is a 67-year-old patient known to me from previous admissions. I performed a le ft great toe amputation on her in February of last year for osteomyelitis. She presented this time to the hospital with a 1 week history of redness and swelling in her right third toe. She states that she only had problems with it for about a week and that she has not had any fevers or chills or any d rainage from the area. She denies any wound to the foot and has been receiving Bactrim through her [facility] doctor, but was not getting better, so she came into the emergency room. She has been on IV antibiotics since admission, has not really noticed any changes in the toe and a foot x-ray perfo rmed in the emergency room showed osteomyelitis of the distal phalanx of the right third toe. In add ition, there were some chronic appearing changes to the tuft of the right first toe, also concerning for osteomyelitis, but she denies any pain or swelling in that toe. PAST MEDICAL HISTORY: Diabetes, hypertension, hyperlipidemia. PAST SURGICAL HISTORY: Right second toe amputation for infection, left first toe amputation for infe ction, tubal ligation, cholecystectomy, and hysterectomy. She denies any food or drug allergies. REVIEW OF SYSTEMS: Negative except per HPI. FAMILY HISTORY: Noncontributory. OUTPATIENT MEDICATIONS: Include 70/30 insulin and iron. PHYSICAL EXAMINATION: VITAL SIGNS: The patient has been afebrile since her admission. Heart rate has varied from 87-116 c urrently 93, respirations 16, 96% saturated on room air, blood pressure 149/88. GENERAL: Reveals a healthy appearing woman in no acute distress. She appears her stated age. She i s not flushed or toxic in appearance. She is not jaundiced or icteric. HEENT: Unremarkable. NECK: Supple, no lymphadenopathy or thyroid nodules are palpable. HEART: Regular in its rate and rhythm without murmurs, rubs or gallops. LUNGS: Clear to auscultation bilaterally. ABDOMEN: Soft, nontender and nondistended. EXTREMITIES: Warm and well perfused with normal dorsalis pedis and posterior tibial pulses bilateral ly. No significant edema. The left great toe and right second toe amputation sites are well healed. There is no erythema or ulceration of the right first toe. The right third toe has a chronic appea ring ulcer on the tip of the toe which is not visible for the patient. There is a central scab with some fluctuance underneath it, consistent with an underlying abscess. The right third toe is swollen to about twice the size of the other small toes, but there is no erythema extending up onto the fore foot and the base looks fairly normal. No other sores on either foot. X-rays are reviewed and I agr ee with the written report. LABORATORY DATA: White count is normal at 5.9, hematocrit 31, platelets 236. BUN and creatinine are mildly elevated at 22 and 1.15 and blood sugars have ranged from 189-324, potassium is slightly high at 5.2, but this is actually down from 5.6 yesterday, a blood culture yesterday showed a gram-positi ve abraham in 1 of 2 cultures sets. Other cultures show no growth to date. ASSESSMENT: Osteomyelitis of the right third toe. There is some suspicious bone changes on x-ray of the right first toe, but that toe is not swollen, tender, red, and has no ulcerations. The right th ird toe is obviously clinically infected but the infectious changes appear to be limited to the dista l portion of the toe. I have recommended amputation. If the tissues appear healthy and clean at the level of the base of the toe, we should be able to close the wound primarily, keep her on antibiotic s postoperatively. If there is infection at the base of the toe, her wound will be managed with dres sing changes and allowed to close by secondary intent. The only alternative would be debridement of the ulcer and long-term antibiotics and chronic wound management, but the patient has failed this str ategy in the past. I think that the risks of progressive infection are high with this method and the expected rate of the toe salvage will be very low, so I do not recommend this. The patient discusse d her options with me and then with her granddaughter with whom I also discussed my findings and darien mmendations. They have decided to proceed with toe amputation and I have placed her on the OR schedu le for later today. I will keep her on appropriate perioperative antibiotics. All their questions w ere answered.
[2017-11-28] MEDS ORDERED: Bupivacaine PF 0.5% 30 ML VIAL ONE (16:38)
[2017-11-28] MEDS ORDERED: Vancomycin HCl 750 MG in Sodium Chloride 0.9% 250 ML 250 ML IVPB SCH (17:00)
[2017-11-28] MEDS ORDERED: Propofol 500 MG/50 ML VIAL ONE (17:41)
[2017-11-28] MEDS ORDERED: Fentanyl 100 MCG/2 ML VIAL ONE (17:41)
[2017-11-28] MEDS ORDERED: Lidocaine 2% Jelly 5 ML TUBE ONE (17:41)
[2017-11-28] MEDS ORDERED: Bacitracin Zinc Ointment 30 gm TUBE ONE (17:47)
[2017-11-28] MEDS ORDERED: Bupivacaine/Epinephrine 0.25% 30 ML VIAL ONE (17:48)
[2017-11-28] MEDS ORDERED: Promethazine HCl 25 MG/ML VIAL IM PRN (19:10)
[2017-11-28] MEDS ORDERED: Ondansetron HCl/PF 4 MG/2 ML Vial IVP PRN (19:10)
[2017-11-28] MEDS ORDERED: Promethazine HCl 25 MG/ML VIAL SLOW IVP PRN (19:10)
[2017-11-29] MEDS: Piperacillin/Tazobactam 3.375 GM in Sodium Chloride 0.9% 100 ML IVPB SCH ×4 (03:12→20:37)
[2017-11-29 04:05] LABS: #Eosinphils 0.2 thou/uL (0.0-0.7); #Monocytes 0.4 thou/uL (0.11-0.59); %Basophils 0.4 % (0.0-1.0); %Eosinophils 5.2 % (0.0-10.0); %Lymphocytes 43.6 % (21.0-51.0); %Monocytes 8.2 % (0.0-10.0); %Neutrophils 42.6 % (42.0-75.0); Hemoglobin 10.1 g/dL (12.0-16.0); Mean Corpuscular HGB CONC 35.1 g/dL (32.0-36.0); Mean Corpuscular Hemoglobin 31.5 pg (27.0-31.0); Mean Corpuscular Volume 89.6 fL (78.0-98.0); Mean Platelet Volume 8.4 fL (7.4-10.4); Platelet Count 220 thou/uL (130-400); RBC Distribution Width 11.6 % (11.5-14.5); Red Blood Cell (RBC) Count 3.22 mill/uL (4.20-5.40); White Blood Cell (WBC) Count 4.6 thou/uL (4.8-10.8)
[2017-11-29 04:26] LABS: Anion Gap 10 mmol/L (10-20); BUN (Urea Nitrogen) 15 mg/dL (9.8-20.1); Calc. Creatinine Clearance 66 mL/min (70-130); Calcium 8.6 mg/dL (7.8-10.44); Carbon Dioxide 23 mmol/L (23-31); Chloride 108 mmol/L (98-107); Estimated GFR-MDRD 63; Glucose 163 mg/dL (80-115); Potassium 4.3 mmol/L (3.5-5.1); Sodium 137 mmol/L (136-145)
[2017-11-29] MEDS: Sodium Chloride 0.9% 1,000 ML IV SCH ×2 (09:46→19:30)
[2017-11-29] MEDS: Famotidine 20 MG TAB PO SCH ×2 (09:47→20:42)
[2017-11-29] MEDS: Docusate 100 MG CAP PO SCH ×2 (09:48→20:42)
[2017-11-29] MEDS: Ferrous Sulfate 325 MG TAB PO SCH (09:48)
[2017-11-29] MEDS: NPH, Human Insulin Isophane 300 UNIT/3 ML VIAL SC SCH ×2 (09:49→20:45)
[2017-11-29] MEDS: Insulin Regular 300 UNITS/3 ML VIAL SC PRN ×2 (11:54→18:12)
--- NOTE | 2017-11-29 14:10 | PDOC.PN ---
- Subjective Encounter Start Date: 11/29/17 Encounter Start Time: 14:08 Subjective: feels well. s/p R toe amputation. denies any pain/ -: no fever/chills/N/V/abd pain - Objective Resuscitation Status: Resuscitation Status FULL:Full Resuscitation MAR Reviewed: Yes Vital Signs & Weight: Vital Signs (12 hours) Temp Pulse Resp BP Pulse Ox 11/29/17 11:14 98.1 F 89 16 143/77 H 96 11/29/17 07:30 98.7 F 89 16 161/91 H 95 11/29/17 05:29 98.5 F 78 18 139/82 97 Weight Admit Weight 151 lb 4.8 oz Weight 151 lb 4.8 oz I&O: 11/28/17 11/29/17 11/30/17 06:59 06:59 06:59 Intake Total 1080 Balance 1080 Result Diagrams: 11/29/17 03:31 11/29/17 03:31 Additional Labs: Accuchecks 11/29/17 11/29/17 11/28/17 11:18 04:47 20:53 POC Glucose 237 H 147 H 152 H 11/28/17 16:23 POC Glucose 136 H Microbiology 11/27/17 14:51 Venous blood - Right Arm Blood Culture - Preliminary Bacillus species,NOT anthracis 11/27/17 13:10 Venous blood - Left Arm Blood Culture - Preliminary Specimen has been received and culture in progress. No Growth to date. 11/27/17 13:10 Venous blood - Left Arm Blood Culture - Preliminary NO GROWTH AT 48 HOURS labs reviewed Phys Exam - Physical Examination Constitutional: NAD HEENT: PERRLA, moist MMs, sclera anicteric, TM's clear, oral pharynx no lesions Neck: no nodes, no JVD, supple, full ROM Respiratory: no wheezing, no rales, no rhonchi, clear to auscultation bilateral Cardiovascular: RRR, no significant murmur, no rub Gastrointestinal: soft, non-tender, no distention, positive bowel sounds Musculoskeletal: no edema, pulses present R foot in dressing Neurological: non-focal, normal sensation, moves all 4 limbs Psychiatric: normal affect, A&O x 3 Skin: no rash Dx/Plan (1) Toe osteomyelitis, right Code(s): M86.9 - OSTEOMYELITIS, UNSPECIFIED Status: Acute Comment: s/p amputation 7/25/18 (2) Hyperkalemia Code(s): E87.5 - HYPERKALEMIA Status: Acute (3) LEVAR (acute kidney injury) Code(s): N17.9 - ACUTE KIDNEY FAILURE, UNSPECIFIED Status: Acute (4) Anemia, normocytic normochromic Code(s): D64.9 - ANEMIA, UNSPECIFIED Status: Chronic (5) Diabetes type 2, controlled Code(s): E11.9 - TYPE 2 DIABETES MELLITUS WITHOUT COMPLICATIONS Status: Chronic Qualifiers: (6) Dyslipidemia Code(s): E78.5 - HYPERLIPIDEMIA, UNSPECIFIED Status: Chronic (7) Hypertension Code(s): I10 - ESSENTIAL (PRIMARY) HYPERTENSION Status: Chronic Qualifiers: - Plan continue antibiotics, PT/OT, out of bed/ambulate, DVT proph w/SCDs cont empiric IV ABx. -: follow results of surgical report & pathology -: if margins clear,may not need intermediate accountant ABx -: appreciate ID & GS input. -: hemodynamically stable.home meds as below. * . Review of Systems - Review of Systems Constitutional: negative: fever, chills, sweats, weakness, malaise, other ENT: negative: Ear Pain, Ear Discharge, Nose Pain, Nose Discharge, Nose Congestion, Mouth Pain, Mouth Swelling, Throat Pain, Throat Swelling, Other Respiratory: negative: Cough, Dry, Shortness of Breath, Hemoptysis, SOB with Excertion, Pleuritic Pain, Sputum, Wheezing Cardiovascular: negative: chest pain, palpitations, orthopnea, paroxysmal nocturnal dyspnea, edema, light headedness, other Gastrointestinal: negative: Nausea, Vomiting, Abdominal Pain, Diarrhea, Constipation, Melena, Hematochezia, Other Genitourinary: negative: Dysuria, Frequency, Incontinence, Hematuria, Retention , Other Musculoskeletal: negative: Neck Pain, Shoulder Pain, Arm Pain, Back Pain, Hand Pain, Leg Pain, Foot Pain, Other Skin: negative: Rash, Lesions, Davion, Bruising, Other Neurological: negative: Weakness, Numbness, Incoordination, Change in Speech, Confusion, Seizures, Other - Medications/Allergies Allergies/Adverse Reactions: Allergies Allergy/AdvReac Type Severity Reaction Status Date / Time No Known Drug Allergies Allergy Verified 12/24/15 21:01 Medications: Current Medications Acetaminophen (Tylenol) 650 mg PO Q4H PRN PRN Reason: Headache/Fever or Pain Al Hydroxide/Mg Hydroxide (Maalox) 30 ml PO Q6H PRN PRN Reason: Heartburn or Indigestion Calcium Carbonate (Tums) 1,000 mg PO Q4H PRN PRN Reason: Heartburn or Indigestion Dextrose/Water (Dextrose 50%) 25 gm SLOW IVP PRN PRN PRN Reason: Hypoglycemia Docusate Sodium (Colace) 100 mg PO BID [facility] Last Admin: 11/29/17 09:48 Dose: 100 mg Famotidine (Pepcid) 20 mg PO BID [facility] Last Admin: 11/29/17 09:47 Dose: 20 mg Ferrous Sulfate (Feosol) 325 mg PO DAILY [facility] Last Admin: 11/29/17 09:48 Dose: 325 mg Glucagon (Glucagon) 1 mg IM PRN PRN PRN Reason: Hypoglycemia Dextrose/Water (D5w) 1,000 mls @ 0 mls/hr IV .Q0M PRN; As Directed PRN Reason: Hypoglycemia Piperacillin Sod/Tazobactam (Sod 3.375 gm/ Sodium Chloride) 100 mls @ 200 mls/ hr IVPB 0300,0900,1500,2100 [facility] Last Admin: 11/29/17 09:48 Dose: 100 mls Vancomycin HCl 750 mg/ Sodium (Chloride) 250 mls @ 250 mls/hr IVPB 1700 [facility] Last Admin: 11/28/17 19:15 Dose: Not Given Sodium Chloride (Normal Saline 0.9%) 1,000 mls @ 120 mls/hr IV .Q8H20M [facility] Last Admin: 11/29/17 09:46 Dose: 1,000 mls Insulin Human NPH (Humulin N) 10 unit SC BID [facility] Last Admin: 11/29/17 09:49 Dose: 10 units Insulin Human Regular (Humulin R) 0 units SC .MILD SLIDING SCALE PRN PRN Reason: Mild Correctional Scale Last Admin: 11/29/17 11:54 Dose: 3 unit Insulin Human Regular (Humulin R) 0 units SC .BEDTIME SLIDING SC PRN PRN Reason: Bedtime Correctional Scale Last Admin: 11/27/17 22:03 Dose: 4 units Miscellaneous Medication (Pharmacy To Dose) 1 each IVPB PRN PRN PRN Reason: Pharmacy to dose Senna (Senokot) 2 tab PO HSPRN PRN PRN Reason: Constipation Sodium Chloride (Flush - Normal Saline) 10 ml IVF Q12HR [facility] Last Admin: 11/29/17 09:49 Dose: 10 ml Sodium Chloride (Flush - Normal Saline) 10 ml IVF PRN PRN PRN Reason: Saline Flush
[2017-11-29 16:16] LABS: Vancomycin, Trough 5.6 ug/mL
[2017-11-29] MEDS: Vancomycin HCl 1.25 GM in Sodium Chloride 0.9% 250 ML 250 ML IVPB SCH (18:17)
[2017-11-29] MEDS: Insulin NPH/Reg Insulin Hm 300 UNITS/3 ML VIAL SC SCH (20:45)
[2017-11-30] MEDS: Sodium Chloride 0.9% 1,000 ML IV SCH ×3 (02:02→20:02)
[2017-11-30] MEDS: Piperacillin/Tazobactam 3.375 GM in Sodium Chloride 0.9% 100 ML IVPB SCH ×4 (02:02→19:58)
[2017-11-30] MEDS: Insulin NPH/Reg Insulin Hm 300 UNITS/3 ML VIAL SC SCH ×2 (09:04→20:02)
[2017-11-30] MEDS: Docusate 100 MG CAP PO SCH ×2 (09:04→19:57)
[2017-11-30] MEDS: Ferrous Sulfate 325 MG TAB PO SCH (09:04)
[2017-11-30] MEDS: Famotidine 20 MG TAB PO SCH ×2 (09:04→19:57)
[2017-11-30] MEDS: NPH, Human Insulin Isophane 300 UNIT/3 ML VIAL SC SCH ×2 (09:09→20:02)
--- NOTE | 2017-11-30 14:33 | PDOC.PN ---
- Subjective Encounter Start Date: 11/30/17 Encounter Start Time: 11:30 Subjective: pt up in bed no complains - Objective Resuscitation Status: Resuscitation Status FULL:Full Resuscitation Vital Signs & Weight: Vital Signs (12 hours) Temp Pulse Resp BP Pulse Ox 11/30/17 08:18 97.8 F 94 16 107/69 95 11/30/17 08:00 97.8 F 94 16 95 Weight Admit Weight 151 lb 4.8 oz Weight 151 lb 4.8 oz I&O: 11/29/17 11/30/17 12/01/17 06:59 06:59 06:59 Intake Total 1919 Balance 1919 Result Diagrams: 11/29/17 03:31 11/29/17 03:31 Additional Labs: Accuchecks 11/30/17 11/30/17 11/29/17 11:36 04:58 20:46 POC Glucose 149 H 94 287 H 11/29/17 16:17 POC Glucose 168 H Phys Exam - Physical Examination HEENT: PERRLA, moist MMs, sclera anicteric, TM's clear, oral pharynx no lesions , 2+ tonsils Neck: no nodes, no JVD, supple, full ROM Respiratory: no wheezing, no rales, no rhonchi, wheezing present, clear to auscultation bilateral Cardiovascular: RRR, no significant murmur, no rub, gallop, irregular Gastrointestinal: soft, non-tender, no distention, positive bowel sounds right foot wrapped Dx/Plan (1) Toe osteomyelitis, right Code(s): M86.9 - OSTEOMYELITIS, UNSPECIFIED Status: Acute Comment: s/p amputation 11/28/17 (2) Hyperkalemia Code(s): E87.5 - HYPERKALEMIA Status: Acute (3) Diabetes type 2, controlled Code(s): E11.9 - TYPE 2 DIABETES MELLITUS WITHOUT COMPLICATIONS Status: Chronic Qualifiers: (4) LEVAR (acute kidney injury) Code(s): N17.9 - ACUTE KIDNEY FAILURE, UNSPECIFIED Status: Acute - Plan s/p amputation, continue abx for now. -: blood sugars controlled * . Review of Systems - Review of Systems ENT: negative: Ear Pain, Ear Discharge, Nose Pain, Nose Discharge, Nose Congestion, Mouth Pain, Mouth Swelling, Throat Pain, Throat Swelling, Other Respiratory: negative: Cough, Dry, Shortness of Breath, Hemoptysis, SOB with Excertion, Pleuritic Pain, Sputum, Wheezing Cardiovascular: negative: chest pain, palpitations, orthopnea, paroxysmal nocturnal dyspnea, edema, light headedness, other Gastrointestinal: negative: Nausea, Vomiting, Abdominal Pain, Diarrhea, Constipation, Melena, Hematochezia, Other Genitourinary: negative: Dysuria, Frequency, Incontinence, Hematuria, Retention , Other - Medications/Allergies Allergies/Adverse Reactions: Allergies Allergy/AdvReac Type Severity Reaction Status Date / Time No Known Drug Allergies Allergy Verified 12/24/15 21:01 Medications: Current Medications Acetaminophen (Tylenol) 650 mg PO Q4H PRN PRN Reason: Headache/Fever or Pain Al Hydroxide/Mg Hydroxide (Maalox) 30 ml PO Q6H PRN PRN Reason: Heartburn or Indigestion Bacitracin Zinc (Bacitracin) 1 pk TOP DAILY [facility] Calcium Carbonate (Tums) 1,000 mg PO Q4H PRN PRN Reason: Heartburn or Indigestion Dextrose/Water (Dextrose 50%) 25 gm SLOW IVP PRN PRN PRN Reason: Hypoglycemia Docusate Sodium (Colace) 100 mg PO BID [facility] Last Admin: 11/30/17 09:04 Dose: 100 mg Famotidine (Pepcid) 20 mg PO BID [facility] Last Admin: 11/30/17 09:04 Dose: 20 mg Ferrous Sulfate (Feosol) 325 mg PO DAILY [facility] Last Admin: 11/30/17 09:04 Dose: 325 mg Glucagon (Glucagon) 1 mg IM PRN PRN PRN Reason: Hypoglycemia Dextrose/Water (D5w) 1,000 mls @ 0 mls/hr IV .Q0M PRN; As Directed PRN Reason: Hypoglycemia Piperacillin Sod/Tazobactam (Sod 3.375 gm/ Sodium Chloride) 100 mls @ 200 mls/ hr IVPB 0300,0900,1500,2100 [facility] Last Admin: 11/30/17 09:04 Dose: 100 mls Sodium Chloride (Normal Saline 0.9%) 1,000 mls @ 120 mls/hr IV .Q8H20M [facility] Last Admin: 11/30/17 02:02 Dose: 1,000 mls Vancomycin HCl 1.25 gm/ Sodium (Chloride) 250 mls @ 166.667 mls/hr IVPB 1700 [facility] Last Admin: 11/29/17 18:17 Dose: 250 mls Insulin Human Isoph/Insulin Regular (Humulin 70/30) 15 units SC BID [facility] Last Admin: 11/30/17 09:04 Dose: 15 unit Insulin Human NPH (Humulin N) 10 unit SC BID [facility] Last Admin: 11/30/17 09:09 Dose: Not Given Insulin Human Regular (Humulin R) 0 units SC .MILD SLIDING SCALE PRN PRN Reason: Mild Correctional Scale Last Admin: 11/29/17 18:12 Dose: 2 unit Insulin Human Regular (Humulin R) 0 units SC .BEDTIME SLIDING SC PRN PRN Reason: Bedtime Correctional Scale Last Admin: 11/27/17 22:03 Dose: 4 units Miscellaneous Medication (Pharmacy To Dose) 1 each IVPB PRN PRN PRN Reason: Pharmacy to dose Senna (Senokot) 2 tab PO HSPRN PRN PRN Reason: Constipation Sodium Chloride (Flush - Normal Saline) 10 ml IVF Q12HR [facility] Last Admin: 11/30/17 09:05 Dose: Not Given Sodium Chloride (Flush - Normal Saline) 10 ml IVF PRN PRN PRN Reason: Saline Flush
[2017-11-30] MEDS: Vancomycin HCl 1.25 GM in Sodium Chloride 0.9% 250 ML 250 ML IVPB SCH (17:25)
[2017-11-30] MEDS: Insulin Regular 300 UNITS/3 ML VIAL SC PRN (18:26)
--- NOTE | 2017-11-30 19:27 | PDOC.GSPN ---
Surgery Progress Note: Subj - Subjective Narrative: Wound is intact and clean without any fluctuance or erythema. She is to clean the area daily and apply antibiotic ointment and wrapped with gauze. The patient feels that she and her family will be able to do this. From a surgical standpoint she can be discharged home at any point and follow up with me in the clinic in 2 weeks' time for suture removal. Surgery Progress Note: Obj - Vital signs Vital signs: Vital Signs - Most Recent Temp Pulse Resp BP Pulse Ox 97.8 F 94 16 107/69 95 11/30/17 08:18 11/30/17 08:18 11/30/17 08:18 11/30/17 08:18 11/30/17 08:18 Surgery Progress Note: Results - Labs Result Diagrams: 11/29/17 03:31 11/29/17 03:31 Lab results: Laboratory Results - last 24 hr 11/30/17 11/30/17 11:36 16:55 POC Glucose 149 H 227 H
--- NOTE | 2017-11-30 19:31 | PDOC.OP ---
Operative Note - Operative Note Operative Note: PROCEDURE: Right third toe amputation DATE OF PROCEDURE: 11/28/2017 SURGEON: Sara Sales M.D. PREOPERATIVE DIAGNOSES: Osteomyelitis right third toe POSTOPERATIVE DIAGNOSIS: Osteomyelitis right third toe HISTORY: Patient with a chronic-appearing ulcer on her right third toe presented to the hospital with swelling and redness of this toe and a plain film which showed osteomyelitic changes of the distal phalanx. Recommendation was made to proceed with toe amputation. PROCEDURE IN DETAIL: After informed consent was obtained and appropriate preoperative antibiotics continued, the patient was taken to the operating room. A ankle block had been performed preoperatively and adequacy of block was confirmed. She was prepped and draped in standard sterile fashion and a paddle- shaped incision made around the base of the third toe. Dissection was carried down to the proximal phalanx which was divided and the toe was passed from the field. The soft tissues at the level of amputation were clean without evidence of infection or necrosis. The bone was likewise healthy and hard. The proximal phalanx was rongeured down and all sharp edges removed. The wound was irrigated and hemostasis obtained using Bovie electrocautery. The soft tissues were reapproximated over the bone using interrupted 3-0 Vicryl sutures and the skin was closed with interrupted vertical mattress nylon sutures. Bacitracin was placed to the wound and the foot was wrapped with Kerlix and an Ronaldo wrap. Patient was taken to the recovery room in good condition. Estimated blood loss was minimal. There were no complications. Specimen is right third toe.
[2017-12-01] MEDS: Piperacillin/Tazobactam 3.375 GM in Sodium Chloride 0.9% 100 ML IVPB SCH ×3 (02:01→15:11)
[2017-12-01] MEDS: Sodium Chloride 0.9% 1,000 ML IV SCH ×2 (02:02→08:34)
[2017-12-01] MEDS: Ferrous Sulfate 325 MG TAB PO SCH (08:32)
[2017-12-01] MEDS: Docusate 100 MG CAP PO SCH (08:32)
[2017-12-01] MEDS: Insulin NPH/Reg Insulin Hm 300 UNITS/3 ML VIAL SC SCH (08:33)
[2017-12-01] MEDS: Famotidine 20 MG TAB PO SCH (08:33)
[2017-12-01] MEDS: NPH, Human Insulin Isophane 300 UNIT/3 ML VIAL SC SCH (08:34)
[2017-12-01] MEDS ORDERED: Bacitracin Zinc 1 Packet TOP SCH (09:00)
[2017-12-01] MEDS: Insulin Regular 300 UNITS/3 ML VIAL SC PRN (13:05)
[2017-12-01 15:45] VITALS: BP 158/81; TEMP 98.1
== END 2017-12-01 15:55 | disposition home or self-care (01) | DRG 617 ==
LOC: ERS 12:07 → T4-A 18:10
PROVIDERS: ADMIT Internal Medicine; ATTEND Internal Medicine
PROC: 0Y6T0Z1 Detachment at Right 3rd Toe, High, Open Approach (ICD-10-PCS; principal; 2017-11-28)
DX: E11.621 Type 2 diabetes mellitus with foot ulcer (principal); M86.8X7 Other osteomyelitis, ankle and foot; E87.1 Hypo-osmolality and hyponatremia; L97.519 Non-pressure chronic ulcer of other part of right foot with unspecified severity; N17.9 Acute kidney failure, unspecified; E87.5 Hyperkalemia; E11.22 Type 2 diabetes mellitus with diabetic chronic kidney disease; E11.40 Type 2 diabetes mellitus with diabetic neuropathy, unspecified; I12.9 Hypertensive chronic kidney disease with stage 1 through stage 4 chronic kidney disease, or unspecified chronic kidney disease; N18.2 Chronic kidney disease, stage 2 (mild); D63.1 Anemia in chronic kidney disease; E78.5 Hyperlipidemia, unspecified; F41.8 Other specified anxiety disorders; Z89.421 Acquired absence of other right toe(s); Z89.412 Acquired absence of left great toe; Z79.4 Long term (current) use of insulin
CPT/HCPCS: 36415; 36416; 80048; 80053; 80202; 83036; 83735; 85025; 85652; 86140; 87040; 88305; 88311; 96365; 96367; A4216; J1815; J2543; J2704; J3010; J3370; J7050; S0020

== ENCOUNTER 2021-06-03 21:21 | Inpatient (IN) | payer SELFPAY ==
[2021-06-03] MEDS ORDERED: Acetaminophen 325 MG TAB PO PRN (23:13)
[2021-06-03] MEDS ORDERED: Ondansetron PF 4 MG/2 ML Vial IVP PRN (23:13)
[2021-06-03 23:30] VITALS: BMI 19.5
[2021-06-03] MEDS ORDERED: hydrALAZINE 20 MG/ML VIAL SLOW IVP PRN (23:51)
[2021-06-04] MEDS ORDERED: Dextrose 50% Abboject 50 ML SYRINGE SLOW IVP PRN (00:02)
[2021-06-04] MEDS ORDERED: HumaLOG 300 UNITS/3 ML VIAL SC PRN (00:02)
[2021-06-04] MEDS ORDERED: Dextrose 5% in Water 1,000 ML IV PRN (00:02)
[2021-06-04 00:35] LABS: Anion Gap 10 mmol/L (10-20); BUN (Urea Nitrogen) 12 mg/dL (9.8-20.1); Calc. Creatinine Clearance 66 mL/min (70-130); Calcium 8.1 mg/dL (7.8-10.44); Carbon Dioxide 24 mmol/L (23-31); Chloride 91 mmol/L (98-107); Glucose 158 mg/dL (83-110); Sodium 121 mmol/L (136-145)
[2021-06-04 04:41] LABS: #Lymphocytes 1.5 thou/uL (1.20-3.40); #Monocytes 0.5 thou/uL (0.11-0.59); #Neutrophils 2.4 thou/uL (1.40-6.50); %Basophils 0.2 % (0.0-1.0); %Eosinophils 0.6 % (0.0-10.0); %Lymphocytes 33.3 % (21.0-51.0); %Monocytes 10.4 % (0.0-10.0); %Neutrophils 55.6 % (42.0-75.0); Hemoglobin 9.4 g/dL (12.0-16.0); Mean Corpuscular HGB CONC 35.5 g/dL (32.0-36.0); Mean Corpuscular Volume 90.3 fL (78.0-98.0); Mean Platelet Volume 8.8 fL (7.4-10.4); Platelet Count 201 thou/uL (130-400); RBC Distribution Width 11.1 % (11.5-14.5); Red Blood Cell (RBC) Count 2.94 mill/uL (4.20-5.40); White Blood Cell (WBC) Count 4.4 thou/uL (4.8-10.8)
[2021-06-04 04:52] LABS: Free T4 (Free Thyroxine) 1.22 ng/dL (0.70-1.48)
[2021-06-04 05:04] LABS: Anion Gap 8 mmol/L (10-20); BUN (Urea Nitrogen) 13 mg/dL (9.8-20.1); Calc. Creatinine Clearance 73 mL/min (70-130); Calcium 8.2 mg/dL (7.8-10.44); Carbon Dioxide 25 mmol/L (23-31); Chloride 90 mmol/L (98-107); Glucose 181 mg/dL (83-110); Potassium 3.9 mmol/L (3.5-5.1)
[2021-06-04 05:15] LABS: Sodium 119 mmol/L (136-145)
[2021-06-04] MEDS: HumaLOG 300 UNITS/3 ML VIAL SC PRN ×2 (06:19→12:21)
[2021-06-04 07:25] LABS: Anion Gap 9 mmol/L (10-20); BUN (Urea Nitrogen) 12 mg/dL (9.8-20.1); Calc. Creatinine Clearance 63 mL/min (70-130); Calcium 8.1 mg/dL (7.8-10.44); Carbon Dioxide 25 mmol/L (23-31); Chloride 93 mmol/L (98-107); Glucose 138 mg/dL (83-110); Potassium 3.7 mmol/L (3.5-5.1); Sodium 123 mmol/L (136-145)
[2021-06-04] MEDS: Enoxaparin Sodium 40 MG/0.4 ML SYRINGE SC SCH (09:31)
[2021-06-04 12:55] LABS: Chloride 91 mmol/L (98-107); Sodium 122 mmol/L (136-145)
[2021-06-04] MEDS ORDERED: Promethazine HCl 25 MG in Sodium Chloride 0.9% 50 ML IVPB PRN (13:41)
[2021-06-04] MEDS: Sodium Chloride 0.9% 1,000 ML IV SCH ×2 (14:11→22:32)
[2021-06-05 04:55] LABS: #Lymphocytes 1.6 thou/uL (1.20-3.40); #Monocytes 0.5 thou/uL (0.11-0.59); #Neutrophils 1.7 thou/uL (1.40-6.50); %Basophils 0.5 % (0.0-1.0); %Lymphocytes 41.5 % (21.0-51.0); %Monocytes 12.6 % (0.0-10.0); %Neutrophils 44.3 % (42.0-75.0); Hemoglobin 9.6 g/dL (12.0-16.0); Mean Corpuscular HGB CONC 34.2 g/dL (32.0-36.0); Mean Corpuscular Hemoglobin 31.2 pg (27.0-31.0); Mean Corpuscular Volume 91.4 fL (78.0-98.0); Mean Platelet Volume 8.5 fL (7.4-10.4); Platelet Count 206 thou/uL (130-400); RBC Distribution Width 11.3 % (11.5-14.5); Red Blood Cell (RBC) Count 3.06 mill/uL (4.20-5.40); White Blood Cell (WBC) Count 3.8 thou/uL (4.8-10.8)
[2021-06-05 05:09] LABS: Anion Gap 9 mmol/L (10-20); BUN (Urea Nitrogen) 12 mg/dL (9.8-20.1); Calc. Creatinine Clearance 61 mL/min (70-130); Calcium 8.4 mg/dL (7.8-10.44); Carbon Dioxide 24 mmol/L (23-31); Chloride 104 mmol/L (98-107); Glucose 147 mg/dL (83-110); Potassium 3.5 mmol/L (3.5-5.1); Sodium 133 mmol/L (136-145)
[2021-06-05] MEDS ORDERED: Sodium Chloride 0.9% 1,000 ML IV SCH (08:15)
[2021-06-05] MEDS: Enoxaparin Sodium 40 MG/0.4 ML SYRINGE SC SCH (09:22)
[2021-06-05 10:14] LABS: Hemoglobin 11.2 g/dL (12.0-16.0); Mean Corpuscular HGB CONC 35.2 g/dL (32.0-36.0); Mean Corpuscular Hemoglobin 32.4 pg (27.0-31.0); Mean Corpuscular Volume 92.1 fL (78.0-98.0); Mean Platelet Volume 8.7 fL (7.4-10.4); Platelet Count 215 thou/uL (130-400); RBC Distribution Width 11.6 % (11.5-14.5); Red Blood Cell (RBC) Count 3.44 mill/uL (4.20-5.40); White Blood Cell (WBC) Count 4.4 thou/uL (4.8-10.8)
[2021-06-05 16:37] VITALS: BP 120/70; TEMP 98.9
== END 2021-06-05 16:35 | disposition home or self-care (01) | DRG 641 ==
LOC: UNDOADMOB 21:21 → 2NO 21:21 → OBSVTOIN 06-04 13:01
PROVIDERS: ADMIT Internal Medicine; ATTEND Internal Medicine
DX: E87.1 Hypo-osmolality and hyponatremia (principal); F41.9 Anxiety disorder, unspecified; F32.A Depression, unspecified; E78.5 Hyperlipidemia, unspecified; I10 Essential (primary) hypertension; R19.7 Diarrhea, unspecified; E86.0 Dehydration; D72.819 Decreased white blood cell count, unspecified; E11.9 Type 2 diabetes mellitus without complications; D64.9 Anemia, unspecified; I95.9 Hypotension, unspecified; Z86.73 Personal history of transient ischemic attack (TIA), and cerebral infarction without residual deficits; Z79.899 Other long term (current) drug therapy; Z79.84 Long term (current) use of oral hypoglycemic drugs; Z89.422 Acquired absence of other left toe(s); Z89.421 Acquired absence of other right toe(s); Z90.710 Acquired absence of both cervix and uterus; Z98.51 Tubal ligation status; Z83.3 Family history of diabetes mellitus
CPT/HCPCS: 36415; 36416; 80048; 83930; 83935; 84300; 84439; 84481; 85025; 96372; 96374; 96375; G0378; J0360; J1650; J1815; J2405; J2550; J7050

== ENCOUNTER 2021-10-31 16:59 | Inpatient (IN) | payer SELFPAY ==
[2021-10-31 20:21] VITALS: BMI 19.3
[2021-10-31] MEDS ORDERED: Ondansetron PF 4 MG/2 ML Vial IVP PRN (21:14)
[2021-10-31] MEDS ORDERED: HYDROcodone/Acetaminophen 5/325 mg Tablet PO PRN (21:14)
[2021-10-31 21:45] LABS: #Basophils 0.1 thou/uL (0.0-0.2); #Eosinphils 0.1 thou/uL (0.0-0.7); #Lymphocytes 0.6 thou/uL (1.20-3.40); #Monocytes 0.7 thou/uL (0.11-0.59); #Neutrophils 4.2 thou/uL (1.40-6.50); %Basophils 1.2 % (0.0-1.0); %Lymphocytes 10.5 % (21.0-51.0); %Monocytes 11.9 % (0.0-10.0); %Neutrophils 75.5 % (42.0-75.0); Hemoglobin 9.9 g/dL (12.0-16.0); Mean Corpuscular HGB CONC 33.3 g/dL (32.0-36.0); Mean Corpuscular Hemoglobin 30.6 pg (27.0-31.0); Mean Platelet Volume 8.7 fL (7.4-10.4); Platelet Count 169 thou/uL (130-400); RBC Distribution Width 12.3 % (11.5-14.5); Red Blood Cell (RBC) Count 3.24 mill/uL (4.20-5.40); White Blood Cell (WBC) Count 5.6 thou/uL (4.8-10.8)
[2021-10-31 22:06] LABS: ALT (SGPT) 11 U/L (8-55); AST (SGOT) 13 U/L (5-34); Albumin 3.8 g/dL (3.4-4.8); Alkaline Phosphatase 80 U/L (40-110); Anion Gap 14 mmol/L (10-20); BUN (Urea Nitrogen) 17 mg/dL (9.8-20.1); Bilirubin, Total 0.2 mg/dL (0.2-1.2); Calc. Creatinine Clearance 67 mL/min (70-130); Calcium 9.1 mg/dL (7.8-10.44); Carbon Dioxide 24 mmol/L (23-31); Chloride 99 mmol/L (98-107); Globulin 3.1 g/dL (2.4-3.5); Glucose 183 mg/dL (83-110); Potassium 3.6 mmol/L (3.5-5.1); Protein, Total 6.9 g/dL (5.8-8.1); Sodium 133 mmol/L (136-145)
[2021-10-31] MEDS: Cefepime 2 GM in Sodium Chloride 0.9% 100 ML IVPB SCH (22:30)
[2021-10-31] MEDS: Communication Order-Pharmacy FS SCH (22:45)
[2021-10-31] MEDS: Acetaminophen 325 MG TAB PO PRN (23:50)
[2021-11-01] MEDS: Acetaminophen 325 MG TAB PO PRN (04:10)
[2021-11-01] MEDS ORDERED: Albuterol 200 PUFF (6.7GM INHALER) INH PRN (04:39)
[2021-11-01] MEDS ORDERED: Acetaminophen 325 MG TAB PO PRN (04:39)
[2021-11-01] MEDS ORDERED: Benzonatate 100 MG CAP PO PRN (04:39)
[2021-11-01] MEDS ORDERED: Acetaminophen 650 MG Suppository PR PRN (04:39)
[2021-11-01] MEDS ORDERED: Dextrose 50% Abboject 50 ML SYRINGE SLOW IVP PRN (04:41)
[2021-11-01] MEDS ORDERED: Dextrose 5% in Water 1,000 ML IV PRN (04:41)
[2021-11-01 04:55] LABS: Anion Gap 15 mmol/L (10-20); BUN (Urea Nitrogen) 13 mg/dL (9.8-20.1); Calc. Creatinine Clearance 66 mL/min (70-130); Calcium 9.5 mg/dL (7.8-10.44); Carbon Dioxide 25 mmol/L (23-31); Chloride 98 mmol/L (98-107); Glucose 176 mg/dL (83-110); Potassium 3.7 mmol/L (3.5-5.1); Sodium 134 mmol/L (136-145)
[2021-11-01 05:13] LABS: Band 11 % (5-11); Hemoglobin 11.1 g/dL (12.0-16.0); Lymphocytes 12 % (21-51); MDiff Complete? YES; Mean Corpuscular HGB CONC 33.9 g/dL (32.0-36.0); Mean Corpuscular Hemoglobin 31.3 pg (27.0-31.0); Mean Corpuscular Volume 92.2 fL (78.0-98.0); Mean Platelet Volume 8.9 fL (7.4-10.4); Monocytes 7 % (0-10); Neutrophil 69 % (42-75); Platelet Count 184 thou/uL (130-400); Platelet Morphology Comment Appears Adequate; RBC Distribution Width 12.2 % (11.5-14.5); RBC Morphology Normal; Red Blood Cell (RBC) Count 3.54 mill/uL (4.20-5.40); White Blood Cell (WBC) Count 6.3 thou/uL (4.8-10.8)
[2021-11-01] MEDS: Cefepime 2 GM in Sodium Chloride 0.9% 100 ML IVPB SCH ×3 (06:03→21:34)
[2021-11-01] MEDS ORDERED: Dexamethasone 4 mg/ml Vial SLOW IVP SCH (09:00)
[2021-11-01] MEDS: Vancomycin HCl 750 MG in Sodium Chloride 0.9% 250 ML 250 ML IVPB SCH ×2 (11:29→20:39)
[2021-11-01] MEDS ORDERED: HumaLOG 300 UNITS/3 ML VIAL SC PRN (16:30)
[2021-11-01] MEDS: metFORMIN 500 MG TAB PO SCH (18:41)
[2021-11-01] MEDS: Communication Order-Pharmacy FS SCH (20:46)
[2021-11-02 05:14] LABS: #Lymphocytes 1.3 thou/uL (1.20-3.40); #Monocytes 0.6 thou/uL (0.11-0.59); #Neutrophils 2.5 thou/uL (1.40-6.50); %Basophils 0.1 % (0.0-1.0); %Eosinophils 0.5 % (0.0-10.0); %Monocytes 13.3 % (0.0-10.0); %Neutrophils 57.1 % (42.0-75.0); Hemoglobin 11.1 g/dL (12.0-16.0); Mean Corpuscular HGB CONC 33.8 g/dL (32.0-36.0); Mean Corpuscular Hemoglobin 31.6 pg (27.0-31.0); Mean Corpuscular Volume 93.5 fL (78.0-98.0); Mean Platelet Volume 9.4 fL (7.4-10.4); Platelet Count 173 thou/uL (130-400); RBC Distribution Width 12.6 % (11.5-14.5); Red Blood Cell (RBC) Count 3.53 mill/uL (4.20-5.40); White Blood Cell (WBC) Count 4.3 thou/uL (4.8-10.8)
[2021-11-02] MEDS: Cefepime 2 GM in Sodium Chloride 0.9% 100 ML IVPB SCH (05:26)
[2021-11-02 05:40] LABS: Anion Gap 15 mmol/L (10-20); BUN (Urea Nitrogen) 28 mg/dL (9.8-20.1); Calc. Creatinine Clearance 47 mL/min (70-130); Calcium 9.2 mg/dL (7.8-10.44); Carbon Dioxide 24 mmol/L (23-31); Chloride 102 mmol/L (98-107); Estimated GFR 66; Glucose 163 mg/dL (83-110); Potassium 3.8 mmol/L (3.5-5.1); Sodium 137 mmol/L (136-145)
[2021-11-02 08:19] LABS: Vancomycin, Trough 11.8 ug/mL
[2021-11-02] MEDS: Vancomycin HCl 750 MG in Sodium Chloride 0.9% 250 ML 250 ML IVPB SCH (09:24)
[2021-11-02] MEDS: metFORMIN 500 MG TAB PO SCH ×2 (09:24→17:33)
[2021-11-02] MEDS: Ascorbic Acid 500 mg Chewable Tablet PO SCH (09:24)
[2021-11-02] MEDS: Amlodipine 5 MG TAB PO SCH (09:25)
[2021-11-02] MEDS: Zinc Sulfate 220 MG CAP PO SCH (09:25)
[2021-11-02] MEDS ORDERED: Cefepime 2 GM in Sodium Chloride 0.9% 100 ML IVPB SCH (18:00)
[2021-11-02] MEDS: Communication Order-Pharmacy FS SCH (23:27)
[2021-11-03] MEDS: Vancomycin 1 GM in Premix Bag 1 BAG IVPB SCH ×3 (00:06→21:15)
[2021-11-03 06:46] LABS: Anion Gap 12 mmol/L (10-20); BUN (Urea Nitrogen) 29 mg/dL (9.8-20.1); Calc. Creatinine Clearance 57 mL/min (70-130); Calcium 8.8 mg/dL (7.8-10.44); Carbon Dioxide 24 mmol/L (23-31); Chloride 104 mmol/L (98-107); Estimated GFR 82; Glucose 164 mg/dL (83-110); Potassium 3.9 mmol/L (3.5-5.1); Sodium 136 mmol/L (136-145)
[2021-11-03 07:16] LABS: Band 13 % (5-11); Hemoglobin 9.8 g/dL (12.0-16.0); Lymphocytes 51 % (21-51); MDiff Complete? YES; Mean Corpuscular HGB CONC 32.8 g/dL (32.0-36.0); Mean Corpuscular Hemoglobin 30.8 pg (27.0-31.0); Mean Corpuscular Volume 93.9 fL (78.0-98.0); Mean Platelet Volume 8.8 fL (7.4-10.4); Monocytes 14 % (0-10); Neutrophil 19 % (42-75); Platelet Count 168 thou/uL (130-400); Platelet Morphology Comment Appears Adequate; RBC Distribution Width 12.5 % (11.5-14.5); RBC Morphology Normal; Reactive Lymphocytes 3 % (0-10); Red Blood Cell (RBC) Count 3.17 mill/uL (4.20-5.40); White Blood Cell (WBC) Count 2.8 thou/uL (4.8-10.8)
[2021-11-03] MEDS: Zinc Sulfate 220 MG CAP PO SCH (09:17)
[2021-11-03] MEDS: Ascorbic Acid 500 mg Chewable Tablet PO SCH (09:17)
[2021-11-03] MEDS: Amlodipine 5 MG TAB PO SCH (09:18)
[2021-11-03] MEDS: metFORMIN 500 MG TAB PO SCH ×2 (09:19→17:28)
[2021-11-03] MEDS: Communication Order-Pharmacy FS SCH (19:43)
[2021-11-04] MEDS ORDERED: Multivitamin W/ Minerals 1 TAB PO SCH (09:00)
[2021-11-04 09:13] LABS: Vancomycin, Trough 15.8 ug/mL
[2021-11-04] MEDS: Zinc Sulfate 220 MG CAP PO SCH (09:25)
[2021-11-04] MEDS: Amlodipine 5 MG TAB PO SCH (09:25)
[2021-11-04] MEDS: metFORMIN 500 MG TAB PO SCH (09:26)
[2021-11-04] MEDS: Ascorbic Acid 500 mg Chewable Tablet PO SCH (09:26)
[2021-11-04] MEDS: Vancomycin 1 GM in Premix Bag 1 BAG IVPB SCH (09:27)
[2021-11-04 09:33] VITALS: BP 108/67; TEMP 98.1
== END 2021-11-04 17:00 | disposition home or self-care (01) | DRG 871 ==
LOC: 2NO 16:59 → T4-A 11-02 19:57
PROVIDERS: ADMIT Family Medicine; ATTEND Internal Medicine
PROC: 3E03329 Introduction of Other Anti-infective into Peripheral Vein, Percutaneous Approach (ICD-10-PCS; 2021-10-31)
PROC: 8E0ZXY6 Isolation (ICD-10-PCS; 2021-10-31)
PROC: 3E0333Z Introduction of Anti-inflammatory into Peripheral Vein, Percutaneous Approach (ICD-10-PCS; principal; 2021-11-01)
DX: A41.81 Sepsis due to Enterococcus (principal); U07.1 COVID-19; N30.00 Acute cystitis without hematuria; A41.89 Other specified sepsis; I10 Essential (primary) hypertension; E78.5 Hyperlipidemia, unspecified; E11.9 Type 2 diabetes mellitus without complications; G40.909 Epilepsy, unspecified, not intractable, without status epilepticus; Z79.84 Long term (current) use of oral hypoglycemic drugs; Z79.899 Other long term (current) drug therapy; Z86.73 Personal history of transient ischemic attack (TIA), and cerebral infarction without residual deficits; Z98.890 Other specified postprocedural states
CPT/HCPCS: 36415; 36416; 80048; 80202; 82728; 83605; 85025; 85379; 86140; J0692; J1815; J1956; J3370; J3490; J7050

== ENCOUNTER 2021-11-06 16:09 | Inpatient (IN) | payer SELFPAY ==
[2021-11-06] MEDS ORDERED: Ondansetron PF 4 MG/2 ML Vial ONE (16:28)
[2021-11-06 17:14] LABS: Bilirubin Negative (Negative); Blood, Urine 1+ (Negative); Clarity Clear (Clear); Glucose, Urine (Dipstick) 100 mg/dL (Negative); Ketone, Urine 10 mg/dL (Negative); Leukocyte Negative Leu/uL (Negative); Nitrite Negative (Negative); Protein, Urine (Dipstick) 50 mg/dL (Neg-Trace); Specific Gravity, Urine 1.011 (1.002-1.036); Urobilinogen Normal mg/dL (Less than 2); pH, Urine 6.5 (5.0-9.0)
[2021-11-06 17:25] LABS: Bacteria/HPF None Seen HPF (None Seen); RBC/HPF 0-3 HPF (0-3); Squamous Epithelial None Seen HPF (0-3); WBC/HPF None Seen HPF (0-3)
[2021-11-06 17:33] LABS: #Basophils 0.1 thou/uL (0.0-0.2); #Lymphocytes 0.9 thou/uL (1.20-3.40); #Monocytes 0.3 thou/uL (0.11-0.59); #Neutrophils 1.6 thou/uL (1.40-6.50); %Eosinophils 0.1 % (0.0-10.0); %Lymphocytes 32.1 % (21.0-51.0); %Monocytes 11.7 % (0.0-10.0); %Neutrophils 54.1 % (42.0-75.0); Hemoglobin 10.4 g/dL (12.0-16.0); Mean Corpuscular Hemoglobin 31.3 pg (27.0-31.0); Mean Corpuscular Volume 89.5 fL (78.0-98.0); Mean Platelet Volume 8.6 fL (7.4-10.4); Platelet Count 164 thou/uL (130-400); Red Blood Cell (RBC) Count 3.34 mill/uL (4.20-5.40); White Blood Cell (WBC) Count 2.9 thou/uL (4.8-10.8)
[2021-11-06 17:54] LABS: ALT (SGPT) 21 U/L (8-55); AST (SGOT) 29 U/L (5-34); Albumin 3.9 g/dL (3.4-4.8); Alkaline Phosphatase 72 U/L (40-110); Anion Gap 18 mmol/L (10-20); BUN (Urea Nitrogen) 16 mg/dL (9.8-20.1); Bilirubin, Total 0.4 mg/dL (0.2-1.2); Calc. Creatinine Clearance 0 mL/min (70-130); Calcium 8.6 mg/dL (7.8-10.44); Carbon Dioxide 21 mmol/L (23-31); Chloride 89 mmol/L (98-107); Estimated GFR 93; Globulin 3.2 g/dL (2.4-3.5); Glucose 162 mg/dL (83-110); Potassium 3.6 mmol/L (3.5-5.1); Protein, Total 7.1 g/dL (5.8-8.1); Sodium 124 mmol/L (136-145)
[2021-11-06] MEDS ORDERED: Dextrose 50% Abboject 50 ML SYRINGE SLOW IVP PRN (19:48)
[2021-11-06] MEDS ORDERED: Guaifenesin DM 100-10/5 ML UDCUP PO PRN (19:48)
[2021-11-06] MEDS ORDERED: Ondansetron PF 4 MG/2 ML Vial IVP PRN (19:48)
[2021-11-06] MEDS ORDERED: HYDROcodone/Acetaminophen 5/325 mg Tablet PO PRN (19:48)
[2021-11-06] MEDS ORDERED: Acetaminophen 325 MG TAB PO PRN (19:48)
[2021-11-06] MEDS ORDERED: HumaLOG 300 UNITS/3 ML VIAL SC PRN ×2 (19:48)
[2021-11-06] MEDS ORDERED: Dextrose 5% in Water 1,000 ML IV PRN (19:48)
[2021-11-06] MEDS ORDERED: Bisacodyl 5 MG TAB PO PRN (19:48)
[2021-11-06] MEDS ORDERED: Meclizine HCl 25 MG TAB PO PRN (19:56)
[2021-11-06] MEDS ORDERED: Albuterol 200 PUFF (6.7GM INHALER) INH PRN (19:57)
[2021-11-06 20:44] LABS: Anion Gap 16 mmol/L (10-20); BUN (Urea Nitrogen) 13 mg/dL (9.8-20.1); Calc. Creatinine Clearance 0 mL/min (70-130); Calcium 8.4 mg/dL (7.8-10.44); Carbon Dioxide 23 mmol/L (23-31); Chloride 88 mmol/L (98-107); Estimated GFR 94; Glucose 160 mg/dL (83-110); Potassium 3.7 mmol/L (3.5-5.1); Sodium 123 mmol/L (136-145); Uric Acid 3.2 mg/dL (2.6-6.0)
[2021-11-06 23:01] LABS: Free T4 (Free Thyroxine) 1.48 ng/dL (0.70-1.48)
[2021-11-06] MEDS: Sodium Chloride 0.9% 1,000 ML IV SCH (23:10)
[2021-11-06] MEDS: Famotidine 20 MG TAB PO SCH (23:29)
[2021-11-07 01:08] VITALS: BMI 21.8
[2021-11-07 06:22] LABS: #Lymphocytes 1.6 thou/uL (1.20-3.40); #Monocytes 0.4 thou/uL (0.11-0.59); #Neutrophils 2.2 thou/uL (1.40-6.50); %Basophils 0.3 % (0.0-1.0); %Eosinophils 0.1 % (0.0-10.0); %Lymphocytes 37.8 % (21.0-51.0); %Monocytes 9.2 % (0.0-10.0); %Neutrophils 52.5 % (42.0-75.0); Hemoglobin 9.9 g/dL (12.0-16.0); Mean Corpuscular HGB CONC 35.1 g/dL (32.0-36.0); Mean Corpuscular Hemoglobin 31.3 pg (27.0-31.0); Mean Corpuscular Volume 89.2 fL (78.0-98.0); Mean Platelet Volume 8.9 fL (7.4-10.4); Platelet Count 175 thou/uL (130-400); Red Blood Cell (RBC) Count 3.14 mill/uL (4.20-5.40); White Blood Cell (WBC) Count 4.1 thou/uL (4.8-10.8)
[2021-11-07 06:27] LABS: Phosphorus 3.9 mg/dL (2.3-4.7)
[2021-11-07 06:31] LABS: ALT (SGPT) 17 U/L (8-55); AST (SGOT) 27 U/L (5-34); Albumin 3.5 g/dL (3.4-4.8); Alkaline Phosphatase 59 U/L (40-110); Anion Gap 15 mmol/L (10-20); BUN (Urea Nitrogen) 16 mg/dL (9.8-20.1); Bilirubin, Total 0.3 mg/dL (0.2-1.2); Calc. Creatinine Clearance 66 mL/min (70-130); Carbon Dioxide 21 mmol/L (23-31); Estimated GFR 93; Globulin 2.7 g/dL (2.4-3.5); Glucose 143 mg/dL (83-110); Magnesium 1.2 mg/dL (1.6-2.6); Potassium 3.4 mmol/L (3.5-5.1); Protein, Total 6.2 g/dL (5.8-8.1); Sodium 123 mmol/L (136-145)
[2021-11-07 06:40] LABS: Chloride 90 mmol/L (98-107)
[2021-11-07] MEDS ORDERED: Magnesium Sulfate In Water 4 GM in Premix Bag 1 BAG IVPB SCH (07:30)
[2021-11-07] MEDS ORDERED: Dexamethasone 4 MG TAB PO SCH (08:00)
[2021-11-07] MEDS ORDERED: metFORMIN 500 MG TAB PO SCH (08:00)
[2021-11-07] MEDS ORDERED: Amlodipine 5 MG TAB PO SCH (09:00)
[2021-11-07] MEDS: Potassium Chloride 20 MEQ TAB PO SCH ×2 (09:15→12:18)
[2021-11-07] MEDS: Famotidine 20 MG TAB PO SCH ×2 (09:15→21:31)
[2021-11-07] MEDS: Multivitamin W/ Minerals 1 TAB PO SCH (09:15)
[2021-11-07] MEDS: Enoxaparin Sodium 30 MG/0.3 ML SYRINGE SC SCH (09:18)
[2021-11-07] MEDS: Sodium Chloride 0.9% 1,000 ML IV SCH (09:18)
[2021-11-07 12:50] LABS: Anion Gap 17 mmol/L (10-20); BUN (Urea Nitrogen) 16 mg/dL (9.8-20.1); Calc. Creatinine Clearance 68 mL/min (70-130); Carbon Dioxide 20 mmol/L (23-31); Chloride 90 mmol/L (98-107); Estimated GFR 93; Glucose 177 mg/dL (83-110); Potassium 3.9 mmol/L (3.5-5.1); Sodium 123 mmol/L (136-145)
[2021-11-07] MEDS: Sodium Chloride 1 GM TAB PO SCH ×2 (15:42→21:30)
[2021-11-07 17:39] LABS: Anion Gap 14 mmol/L (10-20); BUN (Urea Nitrogen) 15 mg/dL (9.8-20.1); Calc. Creatinine Clearance 75 mL/min (70-130); Carbon Dioxide 21 mmol/L (23-31); Chloride 96 mmol/L (98-107); Estimated GFR 96; Glucose 85 mg/dL (83-110); Potassium 4.5 mmol/L (3.5-5.1); Sodium 126 mmol/L (136-145)
[2021-11-07] MEDS ORDERED: Sodium Chloride 1 GM TAB PO SCH (18:00)
[2021-11-08 07:23] VITALS: BP 123/69; TEMP 98.5
[2021-11-08 07:28] LABS: Albumin 3.5 g/dL (3.4-4.8); Anion Gap 12 mmol/L (10-20); BUN (Urea Nitrogen) 20 mg/dL (9.8-20.1); BUN/Creatinine Ratio 26.67; Calc. Creatinine Clearance 61 mL/min (70-130); Calcium 8.3 mg/dL (7.8-10.44); Carbon Dioxide 23 mmol/L (23-31); Chloride 101 mmol/L (98-107); Estimated GFR 85; Glucose 118 mg/dL (83-110); Phosphorus 2.8 mg/dL (2.3-4.7); Potassium 3.8 mmol/L (3.5-5.1); Sodium 132 mmol/L (136-145)
[2021-11-08] MEDS: Multivitamin W/ Minerals 1 TAB PO SCH (08:43)
[2021-11-08] MEDS: Famotidine 20 MG TAB PO SCH (08:44)
[2021-11-08] MEDS: Enoxaparin Sodium 30 MG/0.3 ML SYRINGE SC SCH (08:44)
== END 2021-11-08 13:49 | disposition home or self-care (01) | DRG 643 ==
LOC: ERS 16:09 → T4-A 19:39
PROVIDERS: ADMIT Internal Medicine; ATTEND Internal Medicine
PROC: 8E0ZXY6 Isolation (ICD-10-PCS; principal; 2021-11-06)
DX: E22.2 Syndrome of inappropriate secretion of antidiuretic hormone (principal); U07.1 COVID-19; G93.41 Metabolic encephalopathy; E46 Unspecified protein-calorie malnutrition; E86.0 Dehydration; R42 Dizziness and giddiness; I10 Essential (primary) hypertension; E78.5 Hyperlipidemia, unspecified; E11.9 Type 2 diabetes mellitus without complications; G40.909 Epilepsy, unspecified, not intractable, without status epilepticus; E87.6 Hypokalemia; E83.42 Hypomagnesemia; D50.9 Iron deficiency anemia, unspecified; Z86.73 Personal history of transient ischemic attack (TIA), and cerebral infarction without residual deficits; Z68.21 Body mass index [BMI] 21.0-21.9, adult; Z79.899 Other long term (current) drug therapy
CPT/HCPCS: 36415; 36416; 70450; 70551; 71045; 80053; 80069; 81003; 81015; 83605; 83735; 83930; 83935; 84100; 84300; 84439; 84443; 84481; 84550; 85025; 85652; 86140; 87040; 93005; 94760; J1650; J1815; J2405; J3475; J7050; J8540